=== PATIENT | male | born 1940 | race Caucasian/White ===

== ENCOUNTER 2019-07-23 03:26 | Inpatient (IN) | payer MEDICARE, SELFPAY ==
[2019-07-23] VITALS (20 sets, daily range): BP systolic 168–205; BP diastolic 72–91; PULSE 64–94; RESP 9–22; TEMP 36.5–37; O2SAT 93–99
--- NOTE | 2019-07-23 03:40 | ED.GENADUL_ITS ---
Discharge Plan Disposition Patient Disposition: [facility] INPATIENT Condition: Fair Discharge Details Chief Complaint: Chest/Rib Clinical Impression: RUQ abdominal pain, Cholelithiasis Primary Care Provider: Yumi Garrett ED Provider: Jg García Dickinson Meds and New Rx's Prescriptions: No Action glimepiride 4 mg Tablet 4 mg PO DAILY RF: 0 latanoprost 0.005 % Drops 1 drp OPHTHALMIC (EYE) DAILY RF: 0 meloxicam 15 mg Tablet 15 mg PO DAILY RF: 0 triamcinolone acetonide 0.1 % Cream 1 applic TOPICAL DAILY RF: 0 methocarbamol 750 mg Tablet 750 mg PO TID PRNRF: 0 timolol maleate [Timoptic] 0.25 % Drops 1 drp OPHTHALMIC (EYE) DAILY RF: 0 metformin 1,000 mg Tablet 1,000 mg PO BID RF: 0 lisinopril 10 mg Tablet 10 mg PO DAILY RF: 0 mometasone [Nasonex] 50 mcg/actuation [place],Non-Aerosol 1 spray INTRANASAL BID RF: 0 loratadine 10 mg Tablet 10 mg PO DAILY RF: 0 omeprazole 20 mg Tablet,Delayed Release (Dr/Ec) 20 mg PO DAILY RF: 0 Medical Decision Making Patient presenting with 8 hours of right-sided abdominal pain which is made worse with breathing. Very tender in the right upper quadrant with a Romero sign. Suspect gallbladder disease. Will place IV and start fluids. Morphine for pain control. Laboratory studies sent and CT scan ordered. Laboratory studies show a normal white count. He has mild anemia. Platelets are normal. Liver function is okay other than bilirubin being a little high at 1.4. Lipase is normal. CT scan shows a large distended gallbladder full of stones. No definite evidence of cholecystitis on CT. Patient still un comfortable and tender in the right upper quadrant. Case discussed with surgery, Dr. Álvarez. Patient will be admitted to surgical service for fluids and pain control. He will be kept n.p.o. Ultrasound is ordered. Lab Data Lab results reviewed: Yes I reviewed the patient's lab results. ECG Data Attestation: I personally reviewed and interpreted this ECG (s) as follows: Prior ECG tracings: not available for review Interpretation: Sinus rhythm at 68. Right bundle branch block. No acute ST changes. HPI General Mode of arrival: ambulatory . Date/Time Provider Initiated Documentation: 07/23/19 03:30 . Limitations to Documentation: no limitations . Information obtained by: patient and RN notes reviewed . HPI Narrative: Patient presents to ED with right sided chest and abdominal pain. Pain started around 8 PM this evening. He has tried to make himself vomit a few times. He has had a bowel movement. Pain is not getting any better. It is now mostly right upper quadrant radiating to the back. Hurts to take a breath. Denies chest pain at this point. Does not have nausea. No fever that he is aware of. Finally cannot take the pain any longer and came in for evaluation. Related Data Home Medications Medication Instructions Recorded Confirmed glimepiride 4 mg PO DAILY 07/23/19 07/23/19 latanoprost 1 drp OPHTHALMIC (EYE) DAILY 07/23/19 07/23/19 lisinopril 10 mg PO DAILY 07/23/19 07/23/19 loratadine 10 mg PO DAILY 07/23/19 07/23/19 meloxicam 15 mg PO DAILY 07/23/19 07/23/19 metformin 1,000 mg PO BID 07/23/19 07/23/19 methocarbamol 750 mg PO TID PRN 07/23/19 07/23/19 mometasone [Nasonex] 1 spray INTRANASAL BID 07/23/19 07/23/19 omeprazole 20 mg PO DAILY 07/23/19 07/23/19 timolol maleate [Timoptic] 1 drp OPHTHALMIC (EYE) DAILY 07/23/19 07/23/19 triamcinolone acetonide 1 applic TOPICAL DAILY 07/23/19 07/23/19 Allergies Allergy/AdvReac Type Severity Reaction Status Date / Time Penicillins Allergy Unverified 07/23/19 05:25 Review of Systems Narrative: 06/08 Review of Systems completed and is negative except as stated above in HPI (Systems reviewed: Const, Eyes, ENT, Resp, CV, GI, , MSK, Skin, Neuro) [facility] Medical History Diabetes mellitus (Chronic) GERD (gastroesophageal reflux disease) (Chronic) Glaucoma (Chronic) Hemochromatosis (Chronic) Surgical History Previous back surgery (Acute) Social History Smoking/Tobacco Use Status: Never Drug use: Never Do you feel safe at home: Yes Do you feel safe in your relationship?: Yes Exam Narrative Exam Narrative: Vitals: Afebrile. Elevated blood pressure otherwise normal vitals and normal room air pulse ox. Const: WDWN elderly male who appears uncomfortable. HEENT: NC/AT. Normal facial exam. Eyes: Normal conjunctiva and sclera. Neck: Supple. Trachea midline. Lungs: Normal respiratory effort. Lungs are clear. Cor: RRR without murmur/gallop. Good radial pulses. GI: Soft and non-distended. Tender in the RUQ with guarding and Romero's sign. Back: No CVAT. Neuro: A+O x 3. CN grossly in tact. Good strength and no focal deficit. Ext: No C/C/E. Skin: Warm and dry without rash.
[2019-07-23 04:03] LABS: Abs Immature Grans 0.01 k/cumm (0.0-0.09); Absolute Basophil Count 0.02 k/cumm (0.0-0.2); Absolute Eosinophil Count 0.03 k/cumm (0.0-0.7); Absolute Lymphocyte Count 0.57 k/cumm (1.2-3.4); Absolute Monocyte Count 0.27 k/cumm (0.11-0.7); Basophils % 0.3; Eosinophils % 0.4; HCT 39.8 % (40.0-50.0); Immature Grans % 0.1; Lymphocytes % 8.5; Mean Corp. HGB Concentration 32.7 g/dL (32.0-36.0); Mean Corpuscular Hemoglobin 28.2 pg (27.0-33.0); Mean Corpuscular Volume 86.3 fL (80-95); Mean Platelet Volume 9.9 fL (8.0-11.0); Neutrophils % 86.7; Platelet Count 212 x1000/uL (130-400); RBC 4.61 m/cumm (4.50-6.00); RBC Distribution Width 21.1 % (11.8-14.1)
[2019-07-23 04:06] LABS: Bilirubin Negative (Negative); Blood Trace-intact (Negative); Clarity Clear (Clear); Glucose 100 mg/dL (Negative); Ketones 15 mg/dL (Negative); Leukocyte Esterase Negative (Negative); Nitrite Negative (Negative)
[2019-07-23 04:12] LABS: Bacteria Rare HPF (Negative); C & S Indicated? No; Casts Negative LPF (Negative); Crystals Negative HPF (Negative); Epithelial Cells Rare HPF (Negative); Mucus Trace (Negative); WBC 0-2 HPF (0-5)
[2019-07-23] MEDS: Lactated Ringers 1,000 ML 125 ML IV ×3 (04:15→21:32)
[2019-07-23 04:16] LABS: ALT 18 U/L (16-63); AST 15 U/L (15-37); Albumin 4.2 g/dL (3.4-5.0); Alkaline Phosphatase 69 U/L (46-116); Anion Gap 9.3 mmol/L (3-11); BUN 19 mg/dL (7-18); Bilirubin, Total 1.4 mg/dL (0.2-1.0); CO2 30.7 mmol/L (21.0-32.0); CREATININE 0.82 mg/dL (0.70-1.30); Calcium 9.1 mg/dL (8.5-10.1); Chloride 102 mmol/L (98-107); Glucose 204 mg/dL (74-106); Lipase 84 U/L (73-393); Potassium 3.6 mmol/L (3.5-5.1); Sodium 142 mmol/L (136-145); Total Protein 7.8 g/dL (6.4-8.2)
[2019-07-23] MEDS: MORPHine 10 MG/ML VIAL 4 MG IVP ×2 (04:16→04:33)
--- NOTE | 2019-07-23 04:27 | NUR.NOTE ---
Nursing Note: Patient states no improvement in pain. Dr García informed. Orders given
[2019-07-23] MEDS: Ondansetron 4 MG/2 ML VIAL IVP ×4 (04:41→18:33)
--- NOTE | 2019-07-23 04:43 | NUR.NOTE ---
Nursing Note: Patient reports pain is down to 2 or 3. Radiology called. Pt ready for ct
[2019-07-23] MEDS: Omnipaque 350 MG/ML 100 ML BTL IJ (05:00)
--- NOTE | 2019-07-23 05:05 | DI.CT_ITS ---
EXAM: CT ABDOMEN PELVIS W CLINICAL HISTORY: RUQ abdominal pain TECHNIQUE: CT examination of the abdomen and pelvis was performed with bolus infusion of 100 cc of O mnipaque 350. COMPARISON: US ABDOMEN from 07/23/2019 FINDINGS: Images obtained through the lung bases are unremarkable. Liver is unremarkable except for incidenta l tiny low-attenuation left lobe hepatic lesion consistent with a small cyst or hemangioma. There ar e numerous gallstones. No gross gallbladder wall thickening or pericholecystic fluid collection. No biliary dilatation. Pancreas is unremarkable in appearance as is the spleen. Adrenals and kidneys are unremarkable with a couple of incidental presumed bilateral renal cysts. Ad renals are unremarkable. No abdominal or pelvic adenopathy. No significant intra-abdominal fluid co llection. Small fat containing bilateral inguinal hernias noted. Appendix is normal. No evidence o f diverticulitis or bowel obstruction. IMPRESSION: Cholelithiasis. No other significant findings.
--- NOTE | 2019-07-23 05:12 | NUR.NOTE ---
Nursing Note:Return from CT. Patient still rates pain about a 3 IV fluids infusing.
--- NOTE | 2019-07-23 05:13 | DI.VRAD_ITS ---
PROCEDURE INFORMATION: Exam: CT Abdomen And Pelvis With Contrast Exam date and time: 07/23/2019 3:54 AM Age: 78 years old Clinical history: Abdominal pain; Localized; Right upper quadrant (ruq) TECHNIQUE: Imaging protocol: Computed tomography of the abdomen and pelvis with intravenous contrast. Radiation optimization: All CT scans at this facility use at least one of these dose optimization techniques: automated exposure control; mA and/or kV adjustment per patient size (includes targeted exams where dose is matched to clinical indication); or iterative reconstruction. Contrast material: [id number]; Contrast volume: 100 ml; Contrast route: IV 20G RAC; COMPARISON: No relevant prior studies available. FINDINGS: Liver: No suspicious lesions. Gallbladder and bile ducts: Many stones in the gallbladder. Gallbladder distended the time of imaging but no inflammatory change. Pancreas: Unremarkable. No ductal dilation. Spleen: No suspicious lesions. Adrenals: No suspicious nodule. Kidneys and ureters: No hydro. No suspicious lesions. Stomach and bowel: Many colonic diverticuli. Appendix: No evidence of appendicitis. Intraperitoneal space: No free air. No significant fluid collection. Vasculature: Unremarkable. No acute findings Lymph nodes: Unremarkable. Bladder: Unremarkable as visualized. Reproductive: Unremarkable as visualized. Bones/joints: Unremarkable. No acute fracture. Soft tissues: Unremarkable. IMPRESSION: Cholelithiasis. Dictated and Authenticated by: Osman Ritter MD. Ordering:MANUEL Gregorio MD
[2019-07-23] MEDS: MORPHine 2 MG/ML SYR 4 MG IVP ×6 (05:33→22:59)
--- NOTE | 2019-07-23 07:18 | NUR.NOTE ---
Patient was admitted to the Med-Surg unit this morning with history of vomiting, and abdominal pain at home last night. He is conscious alert and rational. He ambulates without any difficulties. He vomited x 1 since admission. He was oriented to the room and made comfortable in bed, present with him.
--- NOTE | 2019-07-23 07:51 | DI.US_ITS ---
EXAM: US ABDOMEN CLINICAL HISTORY: RUQ pain; cholelithiasis TECHNIQUE: Ultrasound performed using standard protocol. COMPARISON: No exams were available for comparison FINDINGS: There are numerous gallstones. No gallbladder wall thickening or pericholecystic fluid collection se en. No biliary dilatation seen. Pancreas not ideally visualized but no gross abnormality. The live r is unremarkable in appearance. Kidneys and spleen grossly unremarkable. IMPRESSION: Cholelithiasis, no other significant finding.
--- NOTE | 2019-07-23 08:35 | DI.VRAD_ITS ---
PROCEDURE INFORMATION: Exam: US Abdomen Complete Exam date and time: 07/23/2019 7:54 AM Age: 78 years old Clinical history: Other: Ruq pain, cholelithiasis TECHNIQUE: Imaging protocol: Real-time ultrasound of the abdomen with image documentation. COMPARISON: CT ABDOMEN PELVIS W 07/23/2019 4:49 AM FINDINGS: Liver: liver is mildly echogenic likely related to fatty infiltration. Liver 19 cm Flow within the portal vein is towards the liver- hepatopedal Gallbladder: Large number of small gallstones. Possible gallbladder polyp. 6 mm. Common bile duct: Common bile duct normal. Common bile duct 5-6 mm. Pancreas: Visualized portions of the pancreas normal. Right kidney: Right kidney is normal. Right kidney 11 cm Left kidney: Left kidney 10.5 cm Spleen: Spleen 11 cm Aorta: The visualized portions of the aorta is non-aneurysmal and the visualized portions of the inferior vena cava is unremarkable. Visualized portions of the aorta non-aneurysmal . Likely atheromatous disease Inferior vena cava: Normal. IMPRESSION: 1. Liver is mildly echogenic likely related to fatty infiltration. 2. Large number of small gallstones. Question mild edema. Consider hepatobiliary imaging. Dictated and Authenticated by: Derrick Ye MD. Ordering:MANUEL Gregorio MD
--- NOTE | 2019-07-23 08:49 | NUR.NOTE ---
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
--- NOTE | 2019-07-23 11:54 | HPE_ITS ---
Date of service: 07/23/19 Time of Service: 11:59 Assessment and Plan Assessment and plan (1) Hemochromatosis: Status: Chronic (2) GERD (gastroesophageal reflux disease): Status: Chronic (3) Diabetes mellitus: Status: Chronic (4) Glaucoma: Status: Chronic (5) Gallstones without obstruction of gallbladder: Status: Acute Assessment and plan: Plan: The patient will be scheduled for laparoscopic cholecystectomy. The alternatives to surgery, risks, complications, and the possible need to convert to open cholecystectomy were discussed. Also bleeding, infection, pneumonia, blood clots, complications of anesthesia, damage to bowel, bladder, blood vessels, or bile ducts, liver, need for blood transfusions. Also: chronic pain, chronic diarrhea, reoccurrence of signs and symptoms, port site hernias, adhesions. All questions were answered and the patient elected to proceed with surgery. plan sx in am History of Present Illness History of Present Illness Chief Complaint: gallstones Consults Consult date: 07/23/19 Narrative: started last pm after eating ice cream. pain in RUQ radiating into back and shoulder. assoc N/V. still c/o pain and nausea though not as bad. no fever/chlls. no cp or sob. does not get cp or sob if climbs a flight of stairs. no blood thinners. no prior MN/CVA. htn/dm/glaucoma. no prior abdom sx. no hernias. no problems w/ anesthesia Review of Systems All systems reviewed & are unremarkable except as noted in HPI and below PFSH Medical History Diabetes mellitus (Chronic) GERD (gastroesophageal reflux disease) (Chronic) Glaucoma (Chronic) Hemochromatosis (Chronic) Surgical History Previous back surgery (Acute) Social History Smoking/Tobacco Use Status: Never Drug use: Never Do you feel safe at home: Yes Do you feel safe in your relationship?: Yes Meds Home Medications and Allergies Home Medications Medication Instructions Recorded Confirmed Type glimepiride 4 mg PO DAILY 07/23/19 07/23/19 History latanoprost 1 drp OPHTHALMIC (EYE) DAILY 07/23/19 07/23/19 History lisinopril 10 mg PO DAILY 07/23/19 07/23/19 History loratadine 10 mg PO DAILY 07/23/19 07/23/19 History meloxicam 15 mg PO DAILY 07/23/19 07/23/19 History metformin 1,000 mg PO BID 07/23/19 07/23/19 History methocarbamol 750 mg PO TID PRN 07/23/19 07/23/19 History mometasone [Nasonex] 1 spray INTRANASAL BID 07/23/19 07/23/19 History omeprazole 20 mg PO DAILY 07/23/19 07/23/19 History timolol maleate [Timoptic] 1 drp OPHTHALMIC (EYE) DAILY 07/23/19 07/23/19 History triamcinolone acetonide 1 applic TOPICAL DAILY 07/23/19 07/23/19 History Allergies Allergy/AdvReac Type Severity Reaction Status Date / Time Penicillins Allergy Unverified 07/23/19 05:25 Exam Const General: cooperative, healthy appearing, comfortable, no acute distress, well developed and well groomed Nutritional Appearance: average body habitus and well nourished Orientation: alert, awake and oriented x3 HENMT Head: normal to inspection, normocephalic and atraumatic Ears: hearing grossly normal bilaterally and external ears normal General nose exam: external nose normal Face and sinus: normal facial exam and sinuses nontender Mouth: oral mucosae normal, lip normal, tongue normal and moist mucous membranes Teeth and gingiva: dentition normal Eyes General: appearance normal, both eyes and all related structures Conjunctivae: conjunctivae normal Sclera: sclerae normal Pupils: PERRL Neck Neck: normal visual inspection and full ROM Chest Chest: normal inspection of the chest Resp Effort & Inspection: normal respiratory effort, able to speak in complete sentences, no cough, no nasal flaring, not tachypneic and no use of accessory muscles Auscultation: clear to auscultation bilaterally, no rales, no rhonchi and no wheezes Cardio Jugular venous pressure: no JVD Rate: regular rate Rhythm: regular rhythm GI Inspection: normal to inspection, no edema and distended Palpation: soft, no masses, tender and No ascites Auscultation: normal bowel sounds Other: no hernias. no peritonitis. ruq pain radiates into back. Skin General skin exam: no rashes or lesions noted Trauma: no lacerations or abrasions Other: changes assoc of OA and senile skin changes. no visible skin cancers Neuro General: alert, oriented x3, oriented, gait normal, moves all extremities, no focal motor deficits and CN's II-XI intact bilaterally Cognition: normal cognition Speech: speech normal Gait: normal gait Motor: muscle tone normal throughout Extrem General: normal to inspection, full ROM and no clubbing, cyanosis or edema Psych Appearance: grossly normal and well kempt Mental Status: mental status grossly normal Speech and Movement: speech and movement normal Affect: normal affect Results Labs Result diagrams: 07/23/19 03:45 07/23/19 03:45 Labs: Laboratory Results - last 24 hr 07/23/19 07/23/19 07/23/19 03:45 03:45 04:00 WBC 6.70 RBC 4.61 Hgb 13.0 L Hct 39.8 L MCV 86.3 MCH 28.2 MCHC 32.7 RDW 21.1 H Plt Count 212 MPV 9.9 Immature Gran % 0.1 Neutrophils % 86.7 Lymphocytes % 8.5 Monocytes % 4.0 Eosinophils % 0.4 Basophils % 0.3 Absolute Neutrophils 5.80 Absolute Lymphocytes 0.57 L Absolute Monocytes 0.27 Absolute Eosinophils 0.03 Absolute Basophils 0.02 Sodium 142 Potassium 3.6 Chloride 102 Carbon Dioxide 30.7 Anion Gap 9.3 BUN 19 H Creatinine 0.82 Estimated GFR/1.73 m2 >= 60.00 Glucose 204 H Calcium 9.1 Total Bilirubin 1.4 H AST 15 ALT 18 Alkaline Phosphatase 69 Total Protein 7.8 Albumin 4.2 Lipase 84 Urine Color Yellow Urine Clarity Clear Urine pH 7.0 Ur Specific [place] 1.020 Urine Protein 30 H Urine Ketones 15 H Urine Blood Trace-intact H Urine Nitrite Negative Urine Bilirubin Negative Urine Urobilinogen 1.0 H Ur Leukocyte Esterase Negative Urine RBC 3-5 H Urine WBC 0-2 Ur Epithelial Cells Rare Urine Crystals Negative Urine Bacteria Rare Urine Casts Negative Urine Mucus Trace Ur Culture Indicated? No Urine Glucose 100 Last Vital Signs Temp 36.6 C 07/23/19 07:58 Pulse 83 07/23/19 07:58 Resp 18 07/23/19 07:58 BP 182/76 H 07/23/19 07:58 Pulse Ox 97 07/23/19 07:58
--- NOTE | 2019-07-23 12:06 | PDOC.CMIN ---
- If Service Date Differs Date of service: 07/23/19 Time of Service: 12:07 Care Management Initial Assess REASON FOR HOSPITALIZATION:: Right upper quadrant pain, cholelithiasis PAST MEDICAL HISTORY/PAST SURGICAL HISTORY:: Medical History. Diabetes mellitus (Chronic). GERD (gastroesophageal reflux disease) (Chronic). Glaucoma (Chronic). Hemochromatosis (Chronic). Surgical History. Previous back surgery (Acute) PREVIOUS FUNCTIONAL STATUS/SOCIAL/FAMILY SUPPORTS:: Jemal and his Modesta live in [facility]. They have a daughter who lives in [place], and a son who lives nearby. They have seven grandchildren and two great grand children. 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 Jemal is independent at baseline. CURRENT FUNCTIONAL STATUS:: Jemal was sitting up in his bed when CM met with him, his by his side. He was wincing in pain and reported that he could no longer handle the pain at home, so he came to the ED, where he was admitted for observation. The surgeon will meet with him today to evaluate his needs. He reports that he will be happy when he is out of pain. CM will continue to follow. ADVANCE DIRECTIVES:: None on file. CM provided blank copies of the [place] AD, at the request of Jemal and Modesta. Has patient been provided with information about the portal?: Yes Did the patient sign up for the portal?: No (Not interested) CODE STATUS:: Full Code INSURANCE COVERAGE / FINANCIAL ISSUES:: [facility]/[place] CURRENT HOME/COMMUNITY SERVICES/EQUIPMENT:: No current equipment or services. PRIMARY CARE PHYSICIAN:: Yumi Garrett POTENTIAL DISCHARGE NEEDS:: Evaluation for further needs, follow up appointments PATIENT/FAMILY EDUCATION NEEDS:: Review discharge instructions, discussion of self care needs including Ask Me Three ANTICIPATED BARRIERS TO DISCHARGE:: None identified TRANSPORTATION:: Jemal's , Modesta will transport him via private vehicle PLAN:: Anticipate Jemal will return home with no additional services when medically cleared. He will follow up with his PCP as recommended. His , Modesta will drive him home via private vehicle when ready. CM will continue to follow and support discharge planning considerations.
[2019-07-23] MEDS: Pantoprazole 40 MG VIAL IVP (13:14)
[2019-07-23] MEDS: Droperidol 5 MG/2 ML VIAL 1.25 MG IVP (13:14)
[2019-07-23] MEDS: Lisinopril 10 MG TAB PO (13:15)
--- NOTE | 2019-07-23 13:24 | PHARADMIT ---
Addendum entered by Alaina Hernandez 07/28/19 11:59: Pharmacy Note Subjective Hospitalist consult for chest pain, resolved with GI cocktail, NTG and ASA 324mg Laproscopic Choly was 07/24/19 Objective VS 191/90, Afebrile, pain 2/10, Troponin negative x 2 Mag 2.8, K+ 3.9, LFT's down, Bilirubin elevated Assessment Levaquin IV day#4 today-s/p gangrenous gall bladder IV Acetaminophen scheduled Q8h continues Lovenox was stopped yesterday Plan Echo today, going to [facility] for urgent ERCP today due to bile leak followup with results, Cardiac status, restart Lovenox?, Anbx coverage Addendum entered by Alaina Hernandez 07/26/19 13:04: Pharmacy Note Subjective Objective Afebrile, Tmax 37.8 last evening, pain zero, Mag 1.7, H/H down 9.4/29.3 Assessment Levaquin day#2 MD ordered Iron sucrose 200mg today x1 No Mag replacement ordered at this time Morphine & Dilaudid IVP dc'd, Senna starting, Trazodone at bedtime Plan Addendum entered by Alaina Hernandez 07/25/19 12:41: Pharmacy Note Subjective post-op day#1 for lap/choly, patient ambulating in room, advanced to regular diet today Objective BP 175/91, Afebrile, pain zero, BG 168,K+ 4.1, Mag 1.5, H/H down 10.0/31.0, LFT's up (AST/ALT) Assessment Lovenox started today Levaquin started today dose#1 Mag 2gram IV x1 Morphine and Dilaudid IVP for pain Plan watch for restart of oral meds Addendum entered by Joceline Arnold 07/24/19 15:52: Pharmacy Note Subjective pt had surgery today Objective BP-131/51 other VS okay [id number] Assessment levofloxacin started today first dose given in OR acetaminophen scheduled Plan watch for restart of home meds, transition from IV to PO meds Original Note: Admission Pharmacy Clinical Review right upper quadrant pain, cholelithiasis Code Status Full Code Current Weight 95.708 kg Renally Cleared and Narrow Therapeutic Index Meds Crcl ~70 mL/min current meds okay QTc Value / Action Taken QTc 451 BP Control, Fever BP 178/91 afebrile Electrolytes reviewed within normal limits DVT Prophylaxis none-surgery tomorrow Opiate Usage / Scheduled Bowel Regimen Ordered prn/no Plt/SCr for Heparin / Enoxaparin plt 212 SCr 0.82 INR for Warfarin n/a H/H stable, WBC/Bands h/h 13.0/39.8 WBC 6.70 Antibiotic appropriateness clindamycin-preop dose Cultures and Sensitivities none Surgical ABX d/c within 24 hr surgery tomorrow, reassess then DM control / Insulin Dosing BG 204 none, has po meds on home med list Heart Failure (Check EF%) (JUDY's, B-Block, Diuretics) lisinopril IV to PO Switch n/a Home Meds Reviewed yes Home Meds Not Ordered glimepiride, loratadine, meloxicam, metformin, methocarbamol, mometasone, omeprazole (has pantoprazole ordered), triamcinolone Comments plan is for surgery tomorrow, watch for the restart of some home meds, also watch for possible sliding scale insulin orders (coordinator made aware currently none and was going to check in with surgeon)
[2019-07-23] MEDS: HYDROmorphone 2 MG/ML VIAL 0.5 MG IVP (15:17)
[2019-07-23] MEDS: Normal Saline Flush 10 ML SYR IVP ×2 (20:31→22:59)
[2019-07-23] MEDS: Latanoprost 0.005% 2.5 ML BTL OP (21:32)
[2019-07-24] VITALS (24 sets, daily range): BP systolic 104–166; BP diastolic 29–82; PULSE 64–92; RESP 13–21; TEMP 36–37.4; O2SAT 90–100
[2019-07-24] MEDS: Ondansetron 4 MG/2 ML VIAL IVP ×2 (00:41→06:32)
[2019-07-24] MEDS: Normal Saline Flush 10 ML SYR IVP ×4 (00:42→19:49)
[2019-07-24] MEDS: Insulin Aspart 300 UNITS/3 ML PEN SC ×4 (00:42→21:39)
[2019-07-24] MEDS: MORPHine 2 MG/ML SYR 4 MG IVP ×2 (02:04→06:32)
[2019-07-24] MEDS: Lactated Ringers 1,000 ML 125 ML IV (05:28)
[2019-07-24 07:18] LABS: ALT 25 U/L (16-63); AST 18 U/L (15-37); Albumin 3.5 g/dL (3.4-5.0); Alkaline Phosphatase 60 U/L (46-116); Anion Gap 7.9 mmol/L (3-11); BUN 8 mg/dL (7-18); Bilirubin, Total 3.1 mg/dL (0.2-1.0); CO2 31.1 mmol/L (21.0-32.0); CREATININE 0.76 mg/dL (0.70-1.30); Calcium 8.6 mg/dL (8.5-10.1); Chloride 99 mmol/L (98-107); Glucose 155 mg/dL (74-106); Potassium 3.5 mmol/L (3.5-5.1); Sodium 138 mmol/L (136-145); Total Protein 6.9 g/dL (6.4-8.2)
--- NOTE | 2019-07-24 09:51 | NUR.NOTE ---
pt left unit for surgery Nursing Note:
--- NOTE | 2019-07-24 09:53 | CMPROGNOTE_ITS ---
- If Service Date Differs Date of service: 07/24/19 Time of Service: 09:53 Care Management Progress Note S/O: CM is unable to meet with Jemal today as he is struggling to remain awake. He had a laparoscopic cholecryptectomy surgery earlier in the day and is still under the effects of anesthesia. CM will continue to follow. A: Jemal is a 78 year old male admitted to [facility] on 07/23/2019 for right upper quadrant pain and cholelithiasis. P: Jemal will return home when medically cleared by provider. Anticipate appointment with casing crew at [facility] for ERCP and stent post op. His , Modesta will transport him home when ready. CM continues to follow.
[2019-07-24] MEDS: Lactated Ringers 1,000 ML 30 ML IV ×3 (10:11→13:19)
--- NOTE | 2019-07-24 10:13 | W.PM.PROGNOT ---
Date of Service Date of service: 07/24/19 Time of Service: 10:13 Assessment and Plan Assessment and plan (1) Gallstones without obstruction of gallbladder: Status: Acute Assessment and plan: Plan: The patient will be scheduled for laparoscopic cholecystectomy. The alternatives to surgery, risks, complications, and the possible need to convert to open cholecystectomy were discussed. Also bleeding, infection, pneumonia, blood clots, complications of anesthesia, damage to bowel, bladder, blood vessels, or bile ducts, liver, need for blood transfusions. Also: chronic pain, chronic diarrhea, reoccurrence of signs and symptoms, port site hernias, adhesions. All questions were answered and the patient elected to proceed with surgery. Also d/w pt dietary restrictions and warning signs of when to go to ER. Subjective Subjective Interval history since last seen: Pt is doing well. no headaches. No CP or SOB. no productive cough. no dysuria. no leg pain or swelling. Still having some mild right upper quadrant pain. No fevers or chills. No chest pain or shortness of breath. All questions answered. Stable for procedure today. Exam Const General: cooperative, healthy appearing, comfortable, no acute distress, well developed and well groomed Nutritional Appearance: average body habitus and well nourished Orientation: alert, awake and oriented x3 HENMT Head: normal to inspection, normocephalic and atraumatic Ears: hearing grossly normal bilaterally and external ears normal General nose exam: external nose normal Face and sinus: normal facial exam and sinuses nontender Mouth: oral mucosae normal, lip normal, tongue normal and moist mucous membranes Teeth and gingiva: dentition normal Eyes General: appearance normal, both eyes and all related structures Conjunctivae: conjunctivae normal Sclera: sclerae normal Pupils: PERRL Neck Neck: normal visual inspection and full ROM Chest Chest: normal inspection of the chest Resp Effort & Inspection: normal respiratory effort, able to speak in complete sentences, no cough, no nasal flaring, not tachypneic and no use of accessory muscles Auscultation: clear to auscultation bilaterally, no rales, no rhonchi and no wheezes Cardio Jugular venous pressure: no JVD Rate: regular rate Rhythm: regular rhythm GI Inspection: normal to inspection, no edema and non-distended Palpation: soft, no masses, nontender and No ascites Auscultation: normal bowel sounds Skin General skin exam: no rashes or lesions noted Trauma: no lacerations or abrasions Neuro General: alert, oriented x3, oriented, gait normal, moves all extremities, no focal motor deficits and CN's II-XI intact bilaterally Cognition: normal cognition Speech: speech normal Gait: normal gait Motor: muscle tone normal throughout Extrem General: normal to inspection, full ROM and no clubbing, cyanosis or edema Psych Appearance: grossly normal and well kempt Mental Status: mental status grossly normal Speech and Movement: speech and movement normal Affect: normal affect Objective Objective Clinical Data: Abnormal lab results 07/24/19 Range/Units 06:35 Glucose 155 H (74-106) mg/dL Total Bilirubin 3.1 H (0.2-1.0) mg/dL Vital Signs Temperature 37.4 C 07/24/19 07:16 Temperature Source Tympanic 07/24/19 07:16 Pulse 92 H 07/24/19 07:16 Pulse Rhythm Regular 07/24/19 07:20 Pulse 67 07/23/19 04:31 Respiratory Rate 16 07/24/19 07:16 Respiratory Effort Non-Labored 07/24/19 07:20 Respiratory Depth Normal 07/24/19 07:20 Respiratory Pattern Normal 07/24/19 07:20 Blood Pressure 162/72 H 07/24/19 07:16 Blood Pressure Mean 101 07/23/19 05:46 Blood Pressure Position Sitting 07/23/19 03:36 Pulse Oximetry 95 07/24/19 07:16 Oxygen Delivery Method Room Air 07/24/19 07:16 Oxygen Flow Rate 0 07/24/19 07:16 Pain Level 4 07/24/19 07:16 Intake & Output 07/23/19 07/23/19 07/24/19 11:59 23:59 11:59 Intake Total / 7398.191 5140.667 / 1021.667 Output Total 1550 / 1550 925 / 925 Balance 411.667 / 411.667 96.667 / 96.667 Weight 95.708 kg Intake: IV 1021.667 / 1021.667 Output: Urine 1550 / 1550 925 / 925 Other: Urine Color Yellow Yellow Yellow Urine Appearance Clear Clear Clear Urine Odor None None Voiding Methods Toilet Urinal Urinal Laboratory Results WBC 6.70 k/cumm (4.4-10.8) 07/23/19 03:45 RBC 4.61 m/cumm (4.50-6.00) 07/23/19 03:45 Hgb 13.0 g/dL (13.5-17.5) L 07/23/19 03:45 Hct 39.8 % (40.0-50.0) L 07/23/19 03:45 MCV 86.3 fL (80-95) 07/23/19 03:45 MCH 28.2 pg (27.0-33.0) 07/23/19 03:45 MCHC 32.7 g/dL (32.0-36.0) 07/23/19 03:45 RDW 21.1 % (11.8-14.1) H 07/23/19 03:45 Plt Count 212 x1000/uL (130-400) 07/23/19 03:45 MPV 9.9 fL (8.0-11.0) 07/23/19 03:45 Immature Gran % 0.1 07/23/19 03:45 Neutrophils % 86.7 07/23/19 03:45 Lymphocytes % 8.5 07/23/19 03:45 Monocytes % 4.0 07/23/19 03:45 Eosinophils % 0.4 07/23/19 03:45 Basophils % 0.3 07/23/19 03:45 Absolute Neutrophils 5.80 k/cumm (1.2-6.7) 07/23/19 03:45 Absolute Lymphocytes 0.57 k/cumm (1.2-3.4) L 07/23/19 03:45 Absolute Monocytes 0.27 k/cumm (0.11-0.7) 07/23/19 03:45 Absolute Eosinophils 0.03 k/cumm (0.0-0.7) 07/23/19 03:45 Absolute Basophils 0.02 k/cumm (0.0-0.2) 07/23/19 03:45 Sodium 138 mmol/L (136-145) 07/24/19 06:35 Potassium 3.5 mmol/L (3.5-5.1) 07/24/19 06:35 Chloride 99 mmol/L (98-107) 07/24/19 06:35 Carbon Dioxide 31.1 mmol/L (21.0-32.0) 07/24/19 06:35 Anion Gap 7.9 mmol/L (3-11) 07/24/19 06:35 BUN 8 mg/dL (7-18) D 07/24/19 06:35 Creatinine 0.76 mg/dL (0.70-1.30) 07/24/19 06:35 Estimated GFR/1.73 m2 >= 60.00 (mL/min/1.73m2) 07/24/19 06:35 Glucose 155 mg/dL (74-106) H 07/24/19 06:35 Calcium 8.6 mg/dL (8.5-10.1) 07/24/19 06:35 Total Bilirubin 3.1 mg/dL (0.2-1.0) H 07/24/19 06:35 AST 18 U/L (15-37) 07/24/19 06:35 ALT 25 U/L (16-63) 07/24/19 06:35 Alkaline Phosphatase 60 U/L (46-116) 07/24/19 06:35 Total Protein 6.9 g/dL (6.4-8.2) 07/24/19 06:35 Albumin 3.5 g/dL (3.4-5.0) 07/24/19 06:35 Lipase 84 U/L (73-393) 07/23/19 03:45 Urine Color Yellow (Yellow) 07/23/19 04:00 Urine Clarity Clear (Clear) 07/23/19 04:00 Urine pH 7.0 (5-8) 07/23/19 04:00 Ur Specific [place] 1.020 (1.005-1.025) 07/23/19 04:00 Urine Protein 30 mg/dL (Negative) H 07/23/19 04:00 Urine Ketones 15 mg/dL (Negative) H 07/23/19 04:00 Urine Blood Trace-intact (Negative) H 07/23/19 04:00 Urine Nitrite Negative (Negative) 07/23/19 04:00 Urine Bilirubin Negative (Negative) 07/23/19 04:00 Urine Urobilinogen 1.0 EU/dL (Up TO 0.2) H 07/23/19 04:00 Ur Leukocyte Esterase Negative (Negative) 07/23/19 04:00 Urine RBC 3-5 HPF (0-2) H 07/23/19 04:00 Urine WBC 0-2 HPF (0-5) 07/23/19 04:00 Ur Epithelial Cells Rare HPF (Negative) 07/23/19 04:00 Urine Crystals Negative HPF (Negative) 07/23/19 04:00 Urine Bacteria Rare HPF (Negative) 07/23/19 04:00 Urine Casts Negative LPF (Negative) 07/23/19 04:00 Urine Mucus Trace (Negative) 07/23/19 04:00 Ur Culture Indicated? No 07/23/19 04:00 Urine Glucose 100 mg/dL (Negative) 07/23/19 04:00
[2019-07-24] MEDS: Bupivacaine 0.25% Pres-Free 10 ML VIAL (10:35)
[2019-07-24] MEDS: CLINDAMYCIN 600 MG/50 ML BAG 100 MG IVPB (10:59)
[2019-07-24] MEDS: Bupivacaine 0.25% Pres-Free 30 ML VIAL (11:00)
[2019-07-24] MEDS: Cellulose,Oxidized 4X8 1 PACKET MC (12:39)
--- NOTE | 2019-07-24 13:00 | GB_PTH ---
PATIENT: Jemal Watkins LOC: [id number]#:[id number] AGE/SX: 78/M ROOM: 206 RE07/23/[address]: Andria Álvarez MD : [id number] BED: A DIS: 07/31/2019 SPEC #: [id number] RECD: 07/27/19 12:23 STATUS: ANKIT REQ #: [id number] OSIRIS: 07/24/19 13:[address]: Andria Álvarez DEPT: Surgical Specimen RECD BY: Cindy Ba ENTERED: 07/27/19 12:24 SP TYPE: GB OTHR DR: Yumi Garrett Tissues: 1 - GALLBLADDER Procedures: GROSS AND MICRO LEVEL 3 Comments: [id number]
--- NOTE | 2019-07-24 13:50 | ROE_ITS ---
Date of service: 07/24/19 Time of Service: 13:50 Operative Note Operative Note DATE OF PROCEDURE: 07/24/19 PRE-OP DIAGNOSIS: acute jody w/ stones POST-OP DIAGNOSIS: other (gangrenous) PROCEDURE: lap jody SURGEON: Jewels Loaiza CONCESSION SUPERVISOR: Jewels Rebolledo ANESTHESIA: GETA and regional ESTIMATED BLOOD LOSS: 500 PATHOLOGY: other Patient was transported to: floor Patient's condition: stable Implants: drain Procedure Description: INDICATIONS: the pt has acute cholecystitis, cholelithiasis and is here today for laparoscop ic cholecystectomy. Informed consent was obtained, explaining risks and benefits of the procedure including but not limited to bleeding, infection, pneumonia, blood clots, possible damage to bowel, bladder, blood vessels, bile ducts, possible open procedure, complications of general anesthesia and other unforetold complications. PROCEDURE: The patient agrees and is brought to the operative room suite and placed in supine position. Anesthesia was administered per the Department of Anesthesia. The patient did receive IV antibiotics. NG tube and Ruvalcaba catheter are placed. The patient was prepped and draped in the usual sterile fashion using DuraPrep scrub solution. Pause for the cause was done. 20 mL of 1% buffered lidocaine was used for local anesthetization. A stab incision was made in the umbilicus and the Verres inserted. Drop test was positive and insufflation was begun. When 15 mm of pressure was noted on the monitor, the Veress was removed and #5 port inserted. The camera was inserted through the port and shows no damage to underlying structures. A 10 mm port was then placed in the epigastric position under direct visualization following creation of local field blocks as well as two 5 mm ports in the right upper quadrant. Upon entering the abdomen, it was noted that he had free bile in the pelvis. The omentum was wrapped around the GB. This is teased down w/ blunt dissection. The GB was distended. I did attempt to aspirate the GB- but we got had minimal bile return. THe GB was completely filled w/ stones, making it difficult to manipulate the GB. The gb itself, shows obvious signs of gangrene and areas of perforation. The gallbladder fundus was grasped and retracted towards the right shoulder. Infundibulum was grasped and retracted laterally. The hepat-duodenal ligament is entered. The ligament is hardened/woody/inflammed. The C. duct adn artery are readily dissected out. Once the cystic duct and artery are dissected out, the most inferior portion of the gallbladder plate is removed from the liver and the critical view of safety was obtained after clearing away all fatty material. Endo Clips were placed across the duct and artery and these structures are divided. While dividing the remainder of the fatty attachments- I did encounter a bleeder- this was controlled by placing Surgicel. The remainder of the gallbladder was excised from the liver bed. Again, the liver bed is very fraible and bleeds readily. Floseel is placed in the liver bed. The gallbladder is definately gangrenous. The gallbladder was placed in a bag and brought out. A 3 incision had to be made to rmeove the GB. Examination of the gallbladder shows indeed the cystic duct and artery to have been divided. The remainder of the abdomen was copiously irrigated with a liter of saline. All saline is removed. There is no bleeding or bile leakage from the liver bed or the clips sites. The fascia under the 10mm port site, and the incision made to remove the gb, are closed with 2-0 vicryl. 15 mm flat drain is left in the gallbladder fossa and brought out through the incision and sewn in separately. The skin under the small incisions is closed with 4-0 Monocryl in subcuticular fashion and skin glue applied. A 3 inch incision is closed with nellie. All ports and instruments are removed. Pneumoperitoneum is evacuated and the port sites are monitored to make sure there is no bleeding at the time of desufflation. The patient tolerated the procedure well without complications, transferred to the recovery room in stable condition. JEWELS LOAIZA DO pt has a high chance of having a postoP cystic duct stump leak and may require ERCP and stent postOP
[2019-07-24] MEDS: Lactated Ringers 1,000 ML 150 ML IV ×2 (15:39→20:57)
--- NOTE | 2019-07-24 16:51 | NUR.NOTE ---
@ 15:20 pt returned to the floor from surgery. pt had a Laparoscopic cholecystectomy done. pt has 4 trocar sites, dressings CDI, larger site to the RT upper quadrant has a sascha drain in place. minimal drainage noted to same. pt also has a waterman draining dark chiki urine.at 16:00 he was placed on 1L of o2 until he is fully awake as his sats ranges between 89-91% when he falls asleep.
--- NOTE | 2019-07-24 19:36 | PGE_ITS ---
Date of Service Date of service: 07/24/19 Time of Service: 19:36 Assessment and Plan Assessment and plan (1) Acute gangrenous cholecystitis: Status: Acute Assessment and plan: [facility] General Surgery Post-Op Progress Note s/p lap jody Plan: Encourage ambulation and pulmonary toilet Continue local wound care Pain control measures are effective diet cl liq Interval History: Doing well. Continues to improve. Pain is well-controlled. No fevers. drain has bile in place- unclear if this is from procedure or represents bile leak. There was no leak from liver bed or clip sites at the time of closure. There was bile in ithe abdom at the time of opening. It may just be in leftover irrigation fluid. Pt denies any abdominal pain. dressing sites are C/D/I. The pt's diet is sips/chips The pt is having no nausea or vomiting. The pt has no chest pain, SOB, productive cough. There has no leg pain or swelling. Pt has been doing IS. All labs, radiological & adjuvant studies, cultures and available path reports have been reviewed. Medications and treatment regimen have been adjusted appropriately. Medications: -see eMAR ROS REVIEW OF SYSTEMS GENERAL: No fevers or chills. Denies fatigue, recent weight loss. HEENT: No sinus drainage. No changes with vision or hearing. No difficulty swallowing. CARDIOVASCULAR: Denies chest pain, palpitations and dyspnea on exertion. PULMONARY: No shortness of breath or cough. No increase in sputum production. GI: Denies melena, bright red blood in stools. No hematemesis. No constipation or diarrhea. : No dysuria or hematuria. SKIN: No recent rashes or ulcers. HEMATOLOGY: No history of easy bruising or bleeding. ENDOCRINE: No history of diabetes or thyroid problems. NEUROLOGY: No history of seizures or headaches. No motor or sensory changes. Musculoskeletal: no calf pain or swelling. No le redness Physical Exam: All vitals have been reviewed A & O x3 in NAD SHEENT examination revealed Mucous membranes are moist. No jaundice. Dentition is intact No JVD. No bruising. No corneal abrasions. Examination of the chest revealed Normal excursion. CTA b/l. No R/R/W. Examination of the heart revealed NSR. No new murmurs. No s/s of fluid overload. Examination of the abdomen revealed bile in drain- will monitor. incision C/D/I. The neuromuscular examination was intact. No focal deficits. Moving ext. Indepe ndently. No calf pain or tenderness. Distal peripheral pulses are intact. No skin breakdown Pt were able to express questions and concerns and were apprised of there condition and expected discharge. May need to go for ERCP in stent . (2) Gallstones without obstruction of gallbladder: Status: Acute Subjective Subjective Interval history since last seen: no headaches. No CP or SOB. no productive cough. no leg pain or swelling. Objective Objective Clinical Data: Abnormal lab results 07/24/19 Range/Units 06:35 Glucose 155 H (74-106) mg/dL Total Bilirubin 3.1 H (0.2-1.0) mg/dL Vital Signs Temperature 36.5 C 07/24/19 19:34 Temperature Source Tympanic 07/24/19 19:34 Pulse 85 07/24/19 19:34 Pulse Rhythm Regular 07/24/19 15:30 Pulse 67 07/23/19 04:31 Respiratory Rate 18 07/24/19 19:34 Respiratory Effort Non-Labored 07/24/19 15:30 Respiratory Depth Normal 07/24/19 15:30 Respiratory Pattern Normal 07/24/19 15:30 Blood Pressure 150/62 H 07/24/19 19:34 Blood Pressure Mean 101 07/23/19 05:46 Blood Pressure Position Sitting 07/23/19 03:36 Pulse Oximetry 95 07/24/19 19:34 Respiratory End-tidal CO2 20 07/24/19 14:47 Oxygen Delivery Method Room Air 07/24/19 19:34 Oxygen Flow Rate 0 07/24/19 19:34 Pain Level 0 07/24/19 19:34 Comment 07/24/19 16:10 Intake & Output 07/23/19 07/24/19 07/24/19 23:59 11:59 23:59 Intake Total 1960.667 / 4328.121 2002.667 / 3571.667 2500 / 3571.667 Output Total 0 / 1550 / 1974 Balance 411.667 / 411.667 146.667 / 6866.970 5468 / 1596.667 Intake: IV 1960. / 3877.277 1894.667 / 3571.667 2500 / 3571.667 Oral 0 / 0 Output: Drainage 175 / 175 Mid Anterior Medial Abdomen 175 / 175 Urine 1550 / 1550 925 / 1300 375 / 1300 Estimated Blood Loss 500 / 500 Other: Urine Color Yellow Pale Dark Nadeen Urine Appearance Clear Clear Clear Urine Odor None None Emesis Description None Voiding Methods Urinal Urinal Laboratory Results WBC 6.70 k/cumm (4.4-10.8) 07/23/19 03:45 RBC 4.61 m/cumm (4.50-6.00) 07/23/19 03:45 Hgb 13.0 g/dL (13.5-17.5) L 07/23/19 03:45 Hct 39.8 % (40.0-50.0) L 07/23/19 03:45 MCV 86.3 fL (80-95) 07/23/19 03:45 MCH 28.2 pg (27.0-33.0) 07/23/19 03:45 MCHC 32.7 g/dL (32.0-36.0) 07/23/19 03:45 RDW 21.1 % (11.8-14.1) H 07/23/19 03:45 Plt Count 212 x1000/uL (130-400) 07/23/19 03:45 MPV 9.9 fL (8.0-11.0) 07/23/19 03:45 Immature Gran % 0.1 07/23/19 03:45 Neutrophils % 86.7 07/23/19 03:45 Lymphocytes % 8.5 07/23/19 03:45 Monocytes % 4.0 07/23/19 03:45 Eosinophils % 0.4 07/23/19 03:45 Basophils % 0.3 07/23/19 03:45 Absolute Neutrophils 5.80 k/cumm (1.2-6.7) 07/23/19 03:45 Absolute Lymphocytes 0.57 k/cumm (1.2-3.4) L 07/23/19 03:45 Absolute Monocytes 0.27 k/cumm (0.11-0.7) 07/23/19 03:45 Absolute Eosinophils 0.03 k/cumm (0.0-0.7) 07/23/19 03:45 Absolute Basophils 0.02 k/cumm (0.0-0.2) 07/23/19 03:45 Sodium 138 mmol/L (136-145) 07/24/19 06:35 Potassium 3.5 mmol/L (3.5-5.1) 07/24/19 06:35 Chloride 99 mmol/L (98-107) 07/24/19 06:35 Carbon Dioxide 31.1 mmol/L (21.0-32.0) 07/24/19 06:35 Anion Gap 7.9 mmol/L (3-11) 07/24/19 06:35 BUN 8 mg/dL (7-18) D 07/24/19 06:35 Creatinine 0.76 mg/dL (0.70-1.30) 07/24/19 06:35 Estimated GFR/1.73 m2 >= 60.00 (mL/min/1.73m2) 07/24/19 06:35 Glucose 155 mg/dL (74-106) H 07/24/19 06:35 Calcium 8.6 mg/dL (8.5-10.1) 07/24/19 06:35 Total Bilirubin 3.1 mg/dL (0.2-1.0) H 07/24/19 06:35 AST 18 U/L (15-37) 07/24/19 06:35 ALT 25 U/L (16-63) 07/24/19 06:35 Alkaline Phosphatase 60 U/L (46-116) 07/24/19 06:35 Total Protein 6.9 g/dL (6.4-8.2) 07/24/19 06:35 Albumin 3.5 g/dL (3.4-5.0) 07/24/19 06:35 Lipase 84 U/L (73-393) 07/23/19 03:45 Urine Color Yellow (Yellow) 07/23/19 04:00 Urine Clarity Clear (Clear) 07/23/19 04:00 Urine pH 7.0 (5-8) 07/23/19 04:00 Ur Specific [place] 1.020 (1.005-1.025) 07/23/19 04:00 Urine Protein 30 mg/dL (Negative) H 07/23/19 04:00 Urine Ketones 15 mg/dL (Negative) H 07/23/19 04:00 Urine Blood Trace-intact (Negative) H 07/23/19 04:00 Urine Nitrite Negative (Negative) 07/23/19 04:00 Urine Bilirubin Negative (Negative) 07/23/19 04:00 Urine Urobilinogen 1.0 EU/dL (Up TO 0.2) H 07/23/19 04:00 Ur Leukocyte Esterase Negative (Negative) 07/23/19 04:00 Urine RBC 3-5 HPF (0-2) H 07/23/19 04:00 Urine WBC 0-2 HPF (0-5) 07/23/19 04:00 Ur Epithelial Cells Rare HPF (Negative) 07/23/19 04:00 Urine Crystals Negative HPF (Negative) 07/23/19 04:00 Urine Bacteria Rare HPF (Negative) 07/23/19 04:00 Urine Casts Negative LPF (Negative) 07/23/19 04:00 Urine Mucus Trace (Negative) 07/23/19 04:00 Ur Culture Indicated? No 07/23/19 04:00 Urine Glucose 100 mg/dL (Negative) 07/23/19 04:00
[2019-07-24] MEDS: ACETAMINOPHEN 1,000 MG/100 ML BTL 400 MG IVPB (19:48)
[2019-07-24] MEDS: diphenhydrAMINE 25 MG CAP PO (20:56)
[2019-07-24] MEDS: Latanoprost 0.005% 2.5 ML BTL OP (20:57)
[2019-07-25] VITALS (13 sets, daily range): BP systolic 147–175; BP diastolic 70–93; PULSE 74–88; RESP 16–18; TEMP 36.5–37.8; O2SAT 94–97
[2019-07-25] MEDS: Lactated Ringers 1,000 ML 150 ML IV ×2 (03:49→10:30)
[2019-07-25] MEDS: ACETAMINOPHEN 1,000 MG/100 ML BTL 400 MG IVPB ×3 (03:49→20:09)
[2019-07-25] MEDS: Normal Saline Flush 10 ML SYR IVP ×3 (03:49→14:04)
[2019-07-25 07:04] LABS: Abs Immature Grans 0.01 k/cumm (0.0-0.09); Absolute Basophil Count 0.01 k/cumm (0.0-0.2); Absolute Eosinophil Count 0.01 k/cumm (0.0-0.7); Absolute Lymphocyte Count 0.63 k/cumm (1.2-3.4); Absolute Monocyte Count 0.87 k/cumm (0.11-0.7); Basophils % 0.1; Eosinophils % 0.1; Immature Grans % 0.1; Lymphocytes % 7.5; Mean Corp. HGB Concentration 32.3 g/dL (32.0-36.0); Mean Corpuscular Hemoglobin 28.1 pg (27.0-33.0); Mean Corpuscular Volume 87.1 fL (80-95); Mean Platelet Volume 10.7 fL (8.0-11.0); Monocytes % 10.3; Neutrophils % 81.9; Platelet Count 156 x1000/uL (130-400); RBC 3.56 m/cumm (4.50-6.00); RBC Distribution Width 20.7 % (11.8-14.1); White Blood Cell Count 8.43 k/cumm (4.4-10.8)
[2019-07-25 07:23] LABS: Albumin 2.9 g/dL (3.4-5.0); BUN 13 mg/dL (7-18); Calcium 8.3 mg/dL (8.5-10.1); Chloride 102 mmol/L (98-107); Magnesium 1.5 mg/dL (1.8-2.4); Potassium 4.1 mmol/L (3.5-5.1)
[2019-07-25 07:44] LABS: Anisocytosis 2+; Diff Comment RBC Morph Reviewed; Hypochromasia 1+; Microcytosis 1+
[2019-07-25 07:45] LABS: Calculated LDL 53 mg/dL; Cholesterol 111 mg/dL (<200); HDL Cholesterol 46 mg/dL (40-60); Triglyceride 63 mg/dL (<150)
[2019-07-25 07:49] LABS: ALT 959 U/L (16-63); Alkaline Phosphatase 64 U/L (46-116); Amylase 27 U/L (25-115); Bilirubin, Total 1.8 mg/dL (0.2-1.0); CREATININE 0.91 mg/dL (0.70-1.30); Glucose 168 mg/dL (74-106); Lipase 35 U/L (73-393); Sodium 139 mmol/L (136-145); Total Protein 6.3 g/dL (6.4-8.2)
[2019-07-25 07:52] LABS: AST 1033 U/L (15-37)
[2019-07-25] MEDS: Insulin Aspart 300 UNITS/3 ML PEN SC ×3 (08:36→21:08)
[2019-07-25] MEDS: Lisinopril 10 MG TAB PO (08:37)
[2019-07-25] MEDS: Enoxaparin 40 MG/0.4 ML SYR SC (08:37)
--- NOTE | 2019-07-25 09:29 | PDOC.CMPRO ---
- If Service Date Differs Date of service: 07/25/19 Time of Service: 09:29 Care Management Progress Note S/O: Jemal is sitting in a chair watching television when CM comes to meet with him. He is pleasant and easily engages in conversation. He reports he is feeling better, says his pain has been obliterated, and he hopes to be going home soon. CM continues to follow. A: Jemal is a 78 year old male admitted to [facility] on 07/23/2019 for right upper quadrant pain and cholelithiasis. P: Jemal will be discharged home when medically cleared by provider. Anticipate he will need an appointment with the shipping and receiving at [facility] for ERCP and stent after discharge. His , Modesta, will transport him home via private vehicle when ready. CM continues to follow.
--- NOTE | 2019-07-25 11:30 | W.PM.PROGNOT ---
Date of Service Date of service: 07/25/19 Time of Service: :30 Assessment and Plan Assessment and plan (1) Gallstones without obstruction of gallbladder: Status: Acute (2) Acute gangrenous cholecystitis: Status: Acute (3) S/P laparoscopic cholecystectomy: Status: Acute Assessment and plan: doing well pulm toilet Gi and DVT prophylaxis cont IV abx encourage walking -has bile in DIVYA. this could still be irrigation/spillage from surgery. continue to follow. Pt doing well and has no pain. Subjective Subjective Interval history since last seen: Pt is doing well. no headaches. No CP or SOB. no productive cough. no dysuria. no leg pain or swelling. He denies having any pain. He has had good output from [facility] and will d/c this. He is hungry and wants to eat. Still has bile from DIVYA- but this could still be irrigation fluid. Will continue to monitor. Exam Const General: cooperative, healthy appearing, comfortable, no acute distress, well developed and well groomed Nutritional Appearance: average body habitus and well nourished Orientation: alert, awake and oriented x3 HENMT Head: normal to inspection, normocephalic and atraumatic Ears: hearing grossly normal bilaterally and external ears normal General nose exam: external nose normal Face and sinus: normal facial exam and sinuses nontender Mouth: oral mucosae normal, lip normal, tongue normal and moist mucous membranes Teeth and gingiva: dentition normal Eyes General: appearance normal, both eyes and all related structures Conjunctivae: conjunctivae normal Sclera: sclerae normal Pupils: PERRL Neck Neck: normal visual inspection and full ROM Chest Chest: normal inspection of the chest Resp Effort & Inspection: normal respiratory effort, able to speak in complete sentences, no cough, no nasal flaring, not tachypneic and no use of accessory muscles Auscultation: clear to auscultation bilaterally, no rales, no rhonchi and no wheezes Cardio Jugular venous pressure: no JVD Rate: regular rate Rhythm: regular rhythm GI Inspection: normal to inspection, no edema and non-distended Palpation: soft, no masses, nontender and No ascites Auscultation: normal bowel sounds Other: incision c/d/i. Lg output from DIVYA and contains bile Skin General skin exam: no rashes or lesions noted Trauma: no lacerations or abrasions Neuro General: alert, oriented x3, oriented, gait normal, moves all extremities, no focal motor deficits and CN's II-XI intact bilaterally Cognition: normal cognition Speech: speech normal Gait: normal gait Motor: muscle tone normal throughout Extrem General: normal to inspection, full ROM and no clubbing, cyanosis or edema Psych Appearance: grossly normal and well kempt Mental Status: mental status grossly normal Speech and Movement: speech and movement normal Affect: normal affect Objective Objective Clinical Data: Abnormal lab results 07/25/19 07/25/19 Range/Units 06:20 06:20 RBC 3.56 L (4.50-6.00) m/cumm Hgb 10.0 L D (13.5-17.5) g/dL Hct 31.0 L D (40.0-50.0) % RDW 20.7 H (11.8-14.1) % Absolute Neutrophils 6.90 H (1.2-6.7) k/cumm Absolute Lymphocytes 0.63 L (1.2-3.4) k/cumm Absolute Monocytes 0.87 H (0.11-0.7) k/cumm Glucose 168 H (74-106) mg/dL Calcium 8.3 L (8.5-10.1) mg/dL Magnesium 1.5 L (1.8-2.4) mg/dL Total Bilirubin 1.8 H (0.2-1.0) mg/dL AST 1033 H (15-37) U/L ALT 959 H (16-63) U/L Total Protein 6.3 L (6.4-8.2) g/dL Albumin 2.9 L (3.4-5.0) g/dL Lipase 35 L (73-393) U/L Vital Signs Temperature 36.5 C 07/25/19 07:50 Temperature Source Tympanic 07/25/19 07:50 Pulse 88 07/25/19 07:50 Pulse Rhythm Regular 07/25/19 03:45 Pulse 67 07/23/19 04:31 Respiratory Rate 17 07/25/19 07:50 Respiratory Effort Non-Labored 07/25/19 03:45 Respiratory Depth Normal 07/25/19 03:45 Respiratory Pattern Normal 07/25/19 03:45 Blood Pressure 165/80 H 07/25/19 07:50 Blood Pressure Mean 101 07/23/19 05:46 Blood Pressure Position Sitting 07/23/19 03:36 Pulse Oximetry 94 L 07/25/19 07:50 Respiratory End-tidal CO2 20 07/24/19 14:47 Oxygen Delivery Method Room Air 07/25/19 07:50 Oxygen Flow Rate 0 07/25/19 07:50 Pain Level 0 07/25/19 07:50 Comment 07/25/19 07:00 Intake & Output 07/24/19 07/24/19 07/25/19 11:59 23:59 11:59 Intake Total 1071.667 / 4486.667 3415 / 4486.667 3120 / 3120 Output Total 925 / 2400 1475 / 2400 500 / 500 Balance 146.667 / 2086.667 1940 / 2086.667 2620 / 2620 Intake: IV 1071.667 / 4486.667 3415 / 4486.667 2120 / 2120 Oral 0 / 0 900 / 900 Injectate 100 / 100 Mid Anterior Medial Abdomen 100 / 100 Output: Drainage 325 / 325 150 / 150 Mid Anterior Medial Abdomen 325 / 325 150 / 150 Urine 925 / 1575 650 / 1575 350 / 350 Estimated Blood Loss 500 / 500 Other: Urine Color Pale Straw Light Nadeen Urine Appearance Clear Clear Clear Urine Odor None Emesis Description None Voiding Methods Urinal Laboratory Results WBC 8.43 k/cumm (4.4-10.8) 07/25/19 06:20 RBC 3.56 m/cumm (4.50-6.00) L 07/25/19 06:20 Hgb 10.0 g/dL (13.5-17.5) L D 07/25/19 06:20 Hct 31.0 % (40.0-50.0) L D 07/25/19 06:20 MCV 87.1 fL (80-95) 07/25/19 06:20 MCH 28.1 pg (27.0-33.0) 07/25/19 06:20 MCHC 32.3 g/dL (32.0-36.0) 07/25/19 06:20 RDW 20.7 % (11.8-14.1) H 07/25/19 06:20 Plt Count 156 x1000/uL (130-400) 07/25/19 06:20 MPV 10.7 fL (8.0-11.0) 07/25/19 06:20 Immature Gran % 0.1 07/25/19 06:20 Neutrophils % 81.9 07/25/19 06:20 Lymphocytes % 7.5 07/25/19 06:20 Monocytes % 10.3 07/25/19 06:20 Eosinophils % 0.1 07/25/19 06:20 Basophils % 0.1 07/25/19 06:20 Absolute Neutrophils 6.90 k/cumm (1.2-6.7) H 07/25/19 06:20 Absolute Lymphocytes 0.63 k/cumm (1.2-3.4) L 07/25/19 06:20 Absolute Monocytes 0.87 k/cumm (0.11-0.7) H 07/25/19 06:20 Absolute Eosinophils 0.01 k/cumm (0.0-0.7) 07/25/19 06:20 Absolute Basophils 0.01 k/cumm (0.0-0.2) 07/25/19 06:20 Differential Comment Rbc morph reviewed 07/25/19 06:20 RBC Morphology See below 07/25/19 06:20 Hypochromasia 1+ 07/25/19 06:20 Anisocytosis 2+ 07/25/19 06:20 Microcytosis 1+ 07/25/19 06:20 Sodium 139 mmol/L (136-145) 07/25/19 06:20 Potassium 4.1 mmol/L (3.5-5.1) 07/25/19 06:20 Chloride 102 mmol/L (98-107) 07/25/19 06:20 Carbon Dioxide 31.0 mmol/L (21.0-32.0) 07/25/19 06:20 Anion Gap 6.0 mmol/L (3-11) 07/25/19 06:20 BUN 13 mg/dL (7-18) 07/25/19 06:20 Creatinine 0.91 mg/dL (0.70-1.30) 07/25/19 06:20 Estimated GFR/1.73 m2 >= 60.00 (mL/min/1.73m2) 07/25/19 06:20 Glucose 168 mg/dL (74-106) H 07/25/19 06:20 Calcium 8.3 mg/dL (8.5-10.1) L 07/25/19 06:20 Magnesium 1.5 mg/dL (1.8-2.4) L 07/25/19 06:20 Total Bilirubin 1.8 mg/dL (0.2-1.0) H 07/25/19 06:20 AST 1033 U/L (15-37) H 07/25/19 06:20 ALT 959 U/L (16-63) H 07/25/19 06:20 Alkaline Phosphatase 64 U/L (46-116) 07/25/19 06:20 Total Protein 6.3 g/dL (6.4-8.2) L 07/25/19 06:20 Albumin 2.9 g/dL (3.4-5.0) L 07/25/19 06:20 Triglycerides 63 mg/dL (<150) 07/25/19 06:20 Total Cholesterol 111 mg/dL (<200) 07/25/19 06:20 LDL Cholesterol, Calc 53 mg/dL 07/25/19 06:20 HDL Cholesterol 46 mg/dL (40-60) 07/25/19 06:20 Amylase 27 U/L (25-115) 07/25/19 06:20 Lipase 35 U/L (73-393) L 07/25/19 06:20 Urine Color Yellow (Yellow) 07/23/19 04:00 Urine Clarity Clear (Clear) 07/23/19 04:00 Urine pH 7.0 (5-8) 07/23/19 04:00 Ur Specific [place] 1.020 (1.005-1.025) 07/23/19 04:00 Urine Protein 30 mg/dL (Negative) H 07/23/19 04:00 Urine Ketones 15 mg/dL (Negative) H 07/23/19 04:00 Urine Blood Trace-intact (Negative) H 07/23/19 04:00 Urine Nitrite Negative (Negative) 07/23/19 04:00 Urine Bilirubin Negative (Negative) 07/23/19 04:00 Urine Urobilinogen 1.0 EU/dL (Up TO 0.2) H 07/23/19 04:00 Ur Leukocyte Esterase Negative (Negative) 07/23/19 04:00 Urine RBC 3-5 HPF (0-2) H 07/23/19 04:00 Urine WBC 0-2 HPF (0-5) 07/23/19 04:00 Ur Epithelial Cells Rare HPF (Negative) 07/23/19 04:00 Urine Crystals Negative HPF (Negative) 07/23/19 04:00 Urine Bacteria Rare HPF (Negative) 07/23/19 04:00 Urine Casts Negative LPF (Negative) 07/23/19 04:00 Urine Mucus Trace (Negative) 07/23/19 04:00 Ur Culture Indicated? No 07/23/19 04:00 Urine Glucose 100 mg/dL (Negative) 07/23/19 04:00
[2019-07-25] MEDS: levoFLOXacin 750 MG/150 ML BAG 100 MG IVPB (12:03)
[2019-07-25] MEDS: Pantoprazole 40 MG VIAL IVP (12:04)
[2019-07-25] MEDS: MAGNESIUM SULFATE 2 GM/50 ML BAG IVPB (12:04)
[2019-07-25] MEDS: Latanoprost 0.005% 2.5 ML BTL OP (20:09)
[2019-07-25] MEDS: traZODone 50 MG TAB PO (21:08)
[2019-07-26] VITALS (7 sets, daily range): BP systolic 162–178; BP diastolic 62–87; PULSE 69–102; RESP 17–19; TEMP 36.8–37.5; O2SAT 97
[2019-07-26] MEDS: ACETAMINOPHEN 1,000 MG/100 ML BTL 400 MG IVPB ×3 (04:05→19:40)
[2019-07-26 06:38] LABS: HCT 29.3 % (40.0-50.0); HGB 9.4 g/dL (13.5-17.5)
[2019-07-26 06:42] LABS: ALT 778 U/L (16-63); AST 467 U/L (15-37); Albumin 2.7 g/dL (3.4-5.0); Alkaline Phosphatase 68 U/L (46-116); Bilirubin, Direct 0.45 mg/dL (0.00-0.20); Bilirubin, Total 1.5 mg/dL (0.2-1.0)
[2019-07-26 06:46] LABS: Bilirubin, Total 1.5 mg/dL (0.2-1.0); Magnesium 1.7 mg/dL (1.8-2.4)
[2019-07-26] MEDS: Enoxaparin 40 MG/0.4 ML SYR SC (08:16)
[2019-07-26] MEDS: Normal Saline Flush 10 ML SYR IVP ×3 (08:16→19:41)
[2019-07-26] MEDS: Lisinopril 10 MG TAB PO (08:17)
--- NOTE | 2019-07-26 08:28 | PDOC.CMPRO ---
- If Service Date Differs Date of service: 07/26/19 Time of Service: 08:28 Care Management Progress Note S/O: Jemal is alert and engaged with CM during assessment. He states he is having increased back pain today. Plan for him to be NPO at midnight and have a HIDA scan in the morning. He is receiving Tylenol and has Toradol ordered PRN for discomfort. He states he tends to try to get through the pain and not take any medications. He states he does not remember well and anything discussed with him should also be reviewed with his spouse. A: Jemal is a 78 year old male admitted to [facility] on 07/23/2019 for right upper quadrant pain and cholelithiasis. P: Jemal will be discharged home when medically ready per provider. He continues to remain acute patient at this time. He will have a HIDA scan in the morning and disposition to be determine. He continues to have a DIVYA in place. His , Modesta, will transport him home via private vehicle when ready. CM continues to follow.
--- NOTE | 2019-07-26 10:24 | W.PM.PROGNOT ---
Date of Service Date of service: 07/26/19 Time of Service: 10:24 Assessment and Plan Assessment and plan (1) S/P laparoscopic cholecystectomy: Status: Acute Assessment and plan: prob bile leak hida in am pro will need to go for ERCP and stent. cont abx supportive care (2) Cholelithiasis with acute on chronic cholecystitis: Status: Acute Subjective Subjective Interval history since last seen: Pt is doing well. no headaches. No CP or SOB. no productive cough. no dysuria. no leg pain or swelling. minimal pain He is still having bile from the DIVYA. Will order a HIDA in am. prob needs to go for ERCP. otherwise doing well and feeling good. Exam Const General: cooperative, healthy appearing, comfortable, no acute distress, well developed and well groomed Nutritional Appearance: average body habitus and well nourished Orientation: alert, awake and oriented x3 HENMT Head: normal to inspection, normocephalic and atraumatic Ears: hearing grossly normal bilaterally and external ears normal General nose exam: external nose normal Face and sinus: normal facial exam and sinuses nontender Mouth: oral mucosae normal, lip normal, tongue normal and moist mucous membranes Teeth and gingiva: dentition normal Eyes General: appearance normal, both eyes and all related structures Conjunctivae: conjunctivae normal Sclera: sclerae normal Pupils: PERRL Neck Neck: normal visual inspection and full ROM Chest Chest: normal inspection of the chest Resp Effort & Inspection: normal respiratory effort, able to speak in complete sentences, no cough, no nasal flaring, not tachypneic and no use of accessory muscles Auscultation: clear to auscultation bilaterally, no rales, no rhonchi and no wheezes Cardio Jugular venous pressure: no JVD Rate: regular rate Rhythm: regular rhythm GI Inspection: normal to inspection, no edema, non-distended and incision (c/d/i. ) Palpation: soft, no masses, nontender and No ascites Auscultation: normal bowel sounds Other: bile coming from DIVYA. Skin General skin exam: no rashes or lesions noted Trauma: no lacerations or abrasions Neuro General: alert, oriented x3, oriented, gait normal, moves all extremities, no focal motor deficits and CN's II-XI intact bilaterally Cognition: normal cognition Speech: speech normal Gait: normal gait Motor: muscle tone normal throughout Extrem General: normal to inspection, full ROM and no clubbing, cyanosis or edema Psych Appearance: grossly normal and well kempt Mental Status: mental status grossly normal Speech and Movement: speech and movement normal Affect: normal affect Objective Objective Clinical Data: Abnormal lab results 07/26/19 07/26/19 07/26/19 Range/Units 06:05 06:05 06:05 Hgb 9.4 L (13.5-17.5) g/dL Hct 29.3 L (40.0-50.0) % Magnesium 1.7 L (1.8-2.4) mg/dL Total Bilirubin 1.5 H 1.5 H (0.2-1.0) mg/dL Conjugated Bilirubin 0.45 H (0.00-0.20) mg/dL AST 467 H (15-37) U/L ALT 778 H (16-63) U/L Total Protein 6.0 L (6.4-8.2) g/dL Albumin 2.7 L (3.4-5.0) g/dL Vital Signs Temperature 36.8 C 07/26/19 07:28 Temperature Source Tympanic 07/26/19 07:28 Pulse 83 07/26/19 07:28 Pulse Rhythm Regular 07/26/19 09:09 Pulse 67 07/23/19 04:31 Respiratory Rate 17 07/26/19 07:28 Respiratory Effort Non-Labored 07/26/19 09:09 Respiratory Depth Normal 07/26/19 09:09 Respiratory Pattern Normal 07/26/19 09:09 Blood Pressure 171/76 H 07/26/19 07:28 Blood Pressure Mean 101 07/23/19 05:46 Blood Pressure Position Sitting 07/23/19 03:36 Pulse Oximetry 97 07/26/19 07:28 Respiratory End-tidal CO2 20 07/24/19 14:47 Oxygen Delivery Method Room Air 07/26/19 07:28 Oxygen Flow Rate 0 07/26/19 07:28 Pain Level 0 07/26/19 07:28 Comment 07/26/19 00:10 Intake & Output 07/25/19 07/25/19 07/26/19 11:59 23:59 11:59 Intake Total 4060 / 6060 2000 / 6060 125 / 125 Output Total 1400 / 3700 2300 / 3700 1910 / 1910 Balance 2660 / 2360 -300 / 2360 -1785 / -1785 Intake: IV 2120 / 3620 1500 / 3620 Oral 1840 / 2340 500 / 2340 100 / 100 Injectate 100 / 100 25 / 25 Mid Anterior Medial Abdomen 100 / 100 25 / 25 Output: Drainage 200 / 500 300 / 500 210 / 210 Mid Anterior Medial Abdomen 200 / 500 300 / 500 210 / 210 Urine 1200 / 3200 2000 / 3200 1700 / 1700 Other: Urine Color Yellow Yellow Light Nadeen Urine Appearance Clear Clear Clear Urine Odor Normal None Comment FOUND IN HAT. PT ASLEEP IN RECLINER AT THIS TIME. Voiding Methods Toilet Toilet Laboratory Results WBC 8.43 k/cumm (4.4-10.8) 07/25/19 06:20 RBC 3.56 m/cumm (4.50-6.00) L 07/25/19 06:20 Hgb 9.4 g/dL (13.5-17.5) L 07/26/19 06:05 Hct 29.3 % (40.0-50.0) L 07/26/19 06:05 MCV 87.1 fL (80-95) 07/25/19 06:20 MCH 28.1 pg (27.0-33.0) 07/25/19 06:20 MCHC 32.3 g/dL (32.0-36.0) 07/25/19 06:20 RDW 20.7 % (11.8-14.1) H 07/25/19 06:20 Plt Count 156 x1000/uL (130-400) 07/25/19 06:20 MPV 10.7 fL (8.0-11.0) 07/25/19 06:20 Immature Gran % 0.1 07/25/19 06:20 Neutrophils % 81.9 07/25/19 06:20 Lymphocytes % 7.5 07/25/19 06:20 Monocytes % 10.3 07/25/19 06:20 Eosinophils % 0.1 07/25/19 06:20 Basophils % 0.1 07/25/19 06:20 Absolute Neutrophils 6.90 k/cumm (1.2-6.7) H 07/25/19 06:20 Absolute Lymphocytes 0.63 k/cumm (1.2-3.4) L 07/25/19 06:20 Absolute Monocytes 0.87 k/cumm (0.11-0.7) H 07/25/19 06:20 Absolute Eosinophils 0.01 k/cumm (0.0-0.7) 07/25/19 06:20 Absolute Basophils 0.01 k/cumm (0.0-0.2) 07/25/19 06:20 Differential Comment Rbc morph reviewed 07/25/19 06:20 RBC Morphology See below 07/25/19 06:20 Hypochromasia 1+ 07/25/19 06:20 Anisocytosis 2+ 07/25/19 06:20 Microcytosis 1+ 07/25/19 06:20 Sodium 139 mmol/L (136-145) 07/25/19 06:20 Potassium 4.1 mmol/L (3.5-5.1) 07/25/19 06:20 Chloride 102 mmol/L (98-107) 07/25/19 06:20 Carbon Dioxide 31.0 mmol/L (21.0-32.0) 07/25/19 06:20 Anion Gap 6.0 mmol/L (3-11) 07/25/19 06:20 BUN 13 mg/dL (7-18) 07/25/19 06:20 Creatinine 0.91 mg/dL (0.70-1.30) 07/25/19 06:20 Estimated GFR/1.73 m2 >= 60.00 (mL/min/1.73m2) 07/25/19 06:20 Glucose 168 mg/dL (74-106) H 07/25/19 06:20 Calcium 8.3 mg/dL (8.5-10.1) L 07/25/19 06:20 Magnesium 1.7 mg/dL (1.8-2.4) L 07/26/19 06:05 Total Bilirubin 1.5 mg/dL (0.2-1.0) H 07/26/19 06:05 Total Bilirubin 1.5 mg/dL (0.2-1.0) H 07/26/19 06:05 Conjugated Bilirubin 0.45 mg/dL (0.00-0.20) H 07/26/19 06:05 AST 467 U/L (15-37) H 07/26/19 06:05 ALT 778 U/L (16-63) H 07/26/19 06:05 Alkaline Phosphatase 68 U/L (46-116) 07/26/19 06:05 Total Protein 6.0 g/dL (6.4-8.2) L 07/26/19 06:05 Albumin 2.7 g/dL (3.4-5.0) L 07/26/19 06:05 Triglycerides 63 mg/dL (<150) 07/25/19 06:20 Total Cholesterol 111 mg/dL (<200) 07/25/19 06:20 LDL Cholesterol, Calc 53 mg/dL 07/25/19 06:20 HDL Cholesterol 46 mg/dL (40-60) 07/25/19 06:20 Amylase 27 U/L (25-115) 07/25/19 06:20 Lipase 35 U/L (73-393) L 07/25/19 06:20 Urine Color Yellow (Yellow) 07/23/19 04:00 Urine Clarity Clear (Clear) 07/23/19 04:00 Urine pH 7.0 (5-8) 07/23/19 04:00 Ur Specific [place] 1.020 (1.005-1.025) 07/23/19 04:00 Urine Protein 30 mg/dL (Negative) H 07/23/19 04:00 Urine Ketones 15 mg/dL (Negative) H 07/23/19 04:00 Urine Blood Trace-intact (Negative) H 07/23/19 04:00 Urine Nitrite Negative (Negative) 07/23/19 04:00 Urine Bilirubin Negative (Negative) 07/23/19 04:00 Urine Urobilinogen 1.0 EU/dL (Up TO 0.2) H 07/23/19 04:00 Ur Leukocyte Esterase Negative (Negative) 07/23/19 04:00 Urine RBC 3-5 HPF (0-2) H 07/23/19 04:00 Urine WBC 0-2 HPF (0-5) 07/23/19 04:00 Ur Epithelial Cells Rare HPF (Negative) 07/23/19 04:00 Urine Crystals Negative HPF (Negative) 07/23/19 04:00 Urine Bacteria Rare HPF (Negative) 07/23/19 04:00 Urine Casts Negative LPF (Negative) 07/23/19 04:00 Urine Mucus Trace (Negative) 07/23/19 04:00 Ur Culture Indicated? No 07/23/19 04:00 Urine Glucose 100 mg/dL (Negative) 07/23/19 04:00
[2019-07-26] MEDS: IRON SUCROSE COMPLEX 200 MG in Normal Saline 100 ML 110 MG IVPB (10:35)
--- NOTE | 2019-07-26 10:52 | W.PM.DS.N ---
DS: Diagnosis Discharge Diagnosis (1) Gallstones without obstruction of gallbladder: Status: Acute (2) Acute gangrenous cholecystitis: Status: Acute (3) S/P laparoscopic cholecystectomy: Status: Acute Discharge Plan Disposition Condition: Fair Discharge Details Chief Complaint: Chest/Rib Clinical Impression: RUQ abdominal pain, Cholelithiasis Reason For Visit: RIGHT UPPER QUADRANT PAIN, CHOLELITHIASIS Admit Date/Time: 07/23/19 05:23 Admit Provider: Andria Álvarez Attending Provider: Andria Álvarez Primary Care Provider: Yumi Garrett ED Provider: Jg García [facility] and New Rx's Prescriptions: No Action glimepiride 4 mg Tablet 4 mg PO DAILY RF: 0 latanoprost 0.005 % Drops 1 drp OPHTHALMIC (EYE) DAILY RF: 0 meloxicam 15 mg Tablet 15 mg PO DAILY RF: 0 triamcinolone acetonide 0.1 % Cream 1 applic TOPICAL DAILY RF: 0 methocarbamol 750 mg Tablet 750 mg PO TID PRNRF: 0 timolol maleate [Timoptic] 0.25 % Drops 1 drp OPHTHALMIC (EYE) DAILY RF: 0 metformin 1,000 mg Tablet 1,000 mg PO BID RF: 0 lisinopril 10 mg Tablet 10 mg PO DAILY RF: 0 mometasone [Nasonex] 50 mcg/actuation [place],Non-Aerosol 1 spray INTRANASAL BID RF: 0 loratadine 10 mg Tablet 10 mg PO DAILY RF: 0 omeprazole 20 mg Tablet,Delayed Release (Dr/Ec) 20 mg PO DAILY RF: 0 DS: Data Vitals/I&O Vitals and I&O: Vital Signs Temperature 36.8 C 07/26/19 07:28 Temperature Source Tympanic 07/26/19 07:28 Pulse 83 07/26/19 07:28 Pulse Rhythm Regular 07/26/19 09:09 Pulse 67 07/23/19 04:31 Respiratory Rate 17 07/26/19 07:28 Respiratory Effort Non-Labored 07/26/19 09:09 Respiratory Depth Normal 07/26/19 09:09 Respiratory Pattern Normal 07/26/19 09:09 Blood Pressure 171/76 H 07/26/19 07:28 Blood Pressure Mean 101 07/23/19 05:46 Blood Pressure Position Sitting 07/23/19 03:36 Pulse Oximetry 97 07/26/19 07:28 Respiratory End-tidal CO2 20 07/24/19 14:47 Oxygen Delivery Method Room Air 07/26/19 07:28 Oxygen Flow Rate 0 07/26/19 07:28 Pain Level 0 07/26/19 07:28 Comment 07/26/19 00:10 Intake & Output 07/25/19 07/25/19 07/26/19 11:59 23:59 11:59 Intake Total 4060 / 6060 2000 / 6060 575 / 575 Output Total 1400 / 3700 2300 / 3700 1910 / 1910 Balance 2660 / 2360 -300 / 2360 -1335 / -1335 Intake: IV 2120 / 3620 1500 / 3620 Oral 1840 / 2340 500 / 2340 550 / 550 Injectate 100 / 100 25 / 25 Mid Anterior Medial Abdomen 100 / 100 25 / 25 Output: Drainage 200 / 500 300 / 500 210 / 210 Mid Anterior Medial Abdomen 200 / 500 300 / 500 210 / 210 Urine 1200 / 3200 2000 / 3200 1700 / 1700 Other: Urine Color Yellow Yellow Light Nadeen Urine Appearance Clear Clear Clear Urine Odor Normal None Comment FOUND IN HAT. PT ASLEEP IN RECLINER AT THIS TIME. Voiding Methods Toilet Toilet Data Completed and Pending Labs on day of discharge: Labs from last 24 hours 07/26/19 07/26/19 07/26/19 06:05 06:05 06:05 Hgb 9.4 L Hct 29.3 L Magnesium 1.7 L Total Bilirubin 1.5 H 1.5 H Conjugated Bilirubin 0.45 H AST 467 H ALT 778 H Alkaline Phosphatase 68 Total Protein 6.0 L Albumin 2.7 L [facility] Medical History (Updated 07/25/19 @ 11:53 by Jewels Pizano DO) Acute gangrenous cholecystitis (Acute) Cholelithiasis with acute on chronic cholecystitis (Acute) Diabetes mellitus (Chronic) Gallstones without obstruction of gallbladder (Acute) GERD (gastroesophageal reflux disease) (Chronic) Glaucoma (Chronic) Hemochromatosis (Chronic) Surgical History (Updated 07/25/19 @ 17:18 by Jewels Pizano DO) Previous back surgery (Acute) S/P laparoscopic cholecystectomy (Acute) Social History Smoking/Tobacco Use Status: Never Drug use: Never Do you feel safe at home: Yes Do you feel safe in your relationship?: Yes
[2019-07-26] MEDS: Milk of Magnesia 30 ML CUP PO (12:19)
[2019-07-26] MEDS: levoFLOXacin 750 MG/150 ML BAG 100 MG IVPB (12:19)
[2019-07-26] MEDS: Insulin Aspart 300 UNITS/3 ML PEN SC ×2 (12:20→16:47)
[2019-07-26] MEDS: Pantoprazole 40 MG VIAL IVP (12:20)
[2019-07-26] MEDS: Lactated Ringers 1,000 ML 30 ML IV (16:46)
[2019-07-26] MEDS: traZODone 50 MG TAB PO (19:41)
[2019-07-26] MEDS: Latanoprost 0.005% 2.5 ML BTL OP (19:41)
[2019-07-26] MEDS: Sennosides/Docusate Sodium TAB 1 TAB PO (19:41)
[2019-07-27] VITALS (9 sets, daily range): BP systolic 163–218; BP diastolic 45–98; PULSE 76–92; RESP 17–21; TEMP 36.2–37; O2SAT 93–99
[2019-07-27] MEDS: ACETAMINOPHEN 1,000 MG/100 ML BTL 400 MG IVPB ×3 (03:55→20:04)
[2019-07-27] MEDS: Normal Saline Flush 10 ML SYR IVP ×7 (03:55→23:05)
--- NOTE | 2019-07-27 07:24 | W.PM.PROGNOT ---
Documented by User: ARDEN Aleman 07/27/19 07:28 Date of Service Date of service: 07/27/19 Time of Service: 07:24 Assessment and Plan Assessment and plan (1) S/P laparoscopic cholecystectomy: Status: Acute Assessment and plan: POD #3 s/p laparoscopic cholecystectomy. Awaiting HIDA scan today, to determine if he needs ERCP with stent placement. (+) Flatus, No BM. He has milk of mag. ordered PRN. Encouraged activity out of bed as tolerated. Diet- currently NPO for scan. Subjective Subjective Interval history since last seen: Patient reports that he is feeling well today. He reports he has not had a BM yet. (+) Flatus. Exam Const General: cooperative, healthy appearing and comfortable Orientation: alert and oriented x3 Resp Effort & Inspection: normal respiratory effort, no audible wheezes and no cough GI Inspection: normal to inspection and non-distended Palpation: soft, guarding and tender in the RUQ Other: DIVYA drain- green/brown bile colored drainage Objective Objective Clinical Data: Vital Signs Temperature 36.8 C 07/27/19 07:05 Temperature Source Tympanic 07/27/19 07:05 Pulse 79 07/27/19 07:05 Pulse Rhythm Regular 07/27/19 02:45 Pulse 67 07/23/19 04:31 Respiratory Rate 19 07/27/19 07:05 Respiratory Effort Non-Labored 07/27/19 02:45 Respiratory Depth Normal 07/27/19 02:45 Respiratory Pattern Normal 07/27/19 02:45 Blood Pressure 199/45 H 07/27/19 07:05 Blood Pressure Mean 101 07/23/19 05:46 Blood Pressure Position Sitting 07/23/19 03:36 Pulse Oximetry 98 07/27/19 07:05 Respiratory End-tidal CO2 20 07/24/19 14:47 Oxygen Delivery Method Room Air 07/27/19 03:22 Oxygen Flow Rate 0 07/27/19 03:22 Pain Level 0 07/27/19 07:05 Comment 07/26/19 00:10 Intake & Output 07/26/19 07/27/19 07/27/19 18:59 06:59 18:59 Intake Total 1110 / 1530 420 / 1530 Output Total 730 / 2425 1695 / 2425 Balance 380 / -895 -1275 / -895 Intake: IV 360 / 480 120 / 480 Oral 750 / 1050 300 / 1050 Output: Drainage 180 / 200 20 / 200 Mid Anterior Medial Abdomen 180 / 200 20 / 200 Urine 550 / 2225 1675 / 2225 Other: Urine Color Brown Yellow Urine Appearance Clear Clear Urine Odor None None Comment very brown in color. Voiding Methods Toilet Urinal Laboratory Results WBC 8.43 k/cumm (4.4-10.8) 07/25/19 06:20 RBC 3.56 m/cumm (4.50-6.00) L 07/25/19 06:20 Hgb 9.4 g/dL (13.5-17.5) L 07/26/19 06:05 Hct 29.3 % (40.0-50.0) L 07/26/19 06:05 MCV 87.1 fL (80-95) 07/25/19 06:20 MCH 28.1 pg (27.0-33.0) 07/25/19 06:20 MCHC 32.3 g/dL (32.0-36.0) 07/25/19 06:20 RDW 20.7 % (11.8-14.1) H 07/25/19 06:20 Plt Count 156 x1000/uL (130-400) 07/25/19 06:20 MPV 10.7 fL (8.0-11.0) 07/25/19 06:20 Immature Gran % 0.1 07/25/19 06:20 Neutrophils % 81.9 07/25/19 06:20 Lymphocytes % 7.5 07/25/19 06:20 Monocytes % 10.3 07/25/19 06:20 Eosinophils % 0.1 07/25/19 06:20 Basophils % 0.1 07/25/19 06:20 Absolute Neutrophils 6.90 k/cumm (1.2-6.7) H 07/25/19 06:20 Absolute Lymphocytes 0.63 k/cumm (1.2-3.4) L 07/25/19 06:20 Absolute Monocytes 0.87 k/cumm (0.11-0.7) H 07/25/19 06:20 Absolute Eosinophils 0.01 k/cumm (0.0-0.7) 07/25/19 06:20 Absolute Basophils 0.01 k/cumm (0.0-0.2) 07/25/19 06:20 Differential Comment Rbc morph reviewed 07/25/19 06:20 RBC Morphology See below 07/25/19 06:20 Hypochromasia 1+ 07/25/19 06:20 Anisocytosis 2+ 07/25/19 06:20 Microcytosis 1+ 07/25/19 06:20 Sodium 139 mmol/L (136-145) 07/25/19 06:20 Potassium 4.1 mmol/L (3.5-5.1) 07/25/19 06:20 Chloride 102 mmol/L (98-107) 07/25/19 06:20 Carbon Dioxide 31.0 mmol/L (21.0-32.0) 07/25/19 06:20 Anion Gap 6.0 mmol/L (3-11) 07/25/19 06:20 BUN 13 mg/dL (7-18) 07/25/19 06:20 Creatinine 0.91 mg/dL (0.70-1.30) 07/25/19 06:20 Estimated GFR/1.73 m2 >= 60.00 (mL/min/1.73m2) 07/25/19 06:20 Glucose 168 mg/dL (74-106) H 07/25/19 06:20 Calcium 8.3 mg/dL (8.5-10.1) L 07/25/19 06:20 Magnesium 1.7 mg/dL (1.8-2.4) L 07/26/19 06:05 Total Bilirubin 1.5 mg/dL (0.2-1.0) H 07/26/19 06:05 Total Bilirubin 1.5 mg/dL (0.2-1.0) H 07/26/19 06:05 Conjugated Bilirubin 0.45 mg/dL (0.00-0.20) H 07/26/19 06:05 AST 467 U/L (15-37) H 07/26/19 06:05 ALT 778 U/L (16-63) H 07/26/19 06:05 Alkaline Phosphatase 68 U/L (46-116) 07/26/19 06:05 Total Protein 6.0 g/dL (6.4-8.2) L 07/26/19 06:05 Albumin 2.7 g/dL (3.4-5.0) L 07/26/19 06:05 Triglycerides 63 mg/dL (<150) 07/25/19 06:20 Total Cholesterol 111 mg/dL (<200) 07/25/19 06:20 LDL Cholesterol, Calc 53 mg/dL 07/25/19 06:20 HDL Cholesterol 46 mg/dL (40-60) 07/25/19 06:20 Amylase 27 U/L (25-115) 07/25/19 06:20 Lipase 35 U/L (73-393) L 07/25/19 06:20 Urine Color Yellow (Yellow) 07/23/19 04:00 Urine Clarity Clear (Clear) 07/23/19 04:00 Urine pH 7.0 (5-8) 07/23/19 04:00 Ur Specific [place] 1.020 (1.005-1.025) 07/23/19 04:00 Urine Protein 30 mg/dL (Negative) H 07/23/19 04:00 Urine Ketones 15 mg/dL (Negative) H 07/23/19 04:00 Urine Blood Trace-intact (Negative) H 07/23/19 04:00 Urine Nitrite Negative (Negative) 07/23/19 04:00 Urine Bilirubin Negative (Negative) 07/23/19 04:00 Urine Urobilinogen 1.0 EU/dL (Up TO 0.2) H 07/23/19 04:00 Ur Leukocyte Esterase Negative (Negative) 07/23/19 04:00 Urine RBC 3-5 HPF (0-2) H 07/23/19 04:00 Urine WBC 0-2 HPF (0-5) 07/23/19 04:00 Ur Epithelial Cells Rare HPF (Negative) 07/23/19 04:00 Urine Crystals Negative HPF (Negative) 07/23/19 04:00 Urine Bacteria Rare HPF (Negative) 07/23/19 04:00 Urine Casts Negative LPF (Negative) 07/23/19 04:00 Urine Mucus Trace (Negative) 07/23/19 04:00 Ur Culture Indicated? No 07/23/19 04:00 Urine Glucose 100 mg/dL (Negative) 07/23/19 04:00 Documented by User: Jewels Pizano DO 07/27/19 13:03 Assessment and Plan Assessment and plan (1) Bile leak, postoperative: Status: Acute Assessment and plan: HIDA scan shows small amount of tracer in the GB fossa. plan on sending pt for ERCP and stent. [place] [facility] [place] supportive cares pt needs to have BM BP elevated despite medicating for pain. Will give 12.5mg lopressor.
--- NOTE | 2019-07-27 08:27 | DI.NM_ITS ---
EXAM: NM HEPATOBILIARY SCAN GRP CLINICAL HISTORY: bile leak s/p lap jody. ABD PAIN TECHNIQUE: Injected dose: 5 mCi Tc-99 mebrofenin Initial dynamic images: 60 minutes COMPARISON: CT ABDOMEN PELVIS W from 07/23/2019 FINDINGS: Normal hepatic transit time. Prompt excretion into the small bowel. The patient is status post cholecystectomy. There is a collection of radiotracer in the gallbladder fossa. The finding is suspicious for of bile leak. IMPRESSION: 1. Collection of isotope seen in the gallbladder fossa. The findings are suspicious for a bile leak.
--- NOTE | 2019-07-27 09:22 | CMPROGNOTE_ITS ---
Care Management Progress Note S/O: Jemal has been NPO since midnight awaiting HIDA scan this morning. He is receiving Tylenol and has Toradol ordered PRN for discomfort. Discharge planning requires presence due to Jemal experiencing some reported memory deficits. He is being encouraged to be out of bed and moving when able to tolerate. CM continues to follow. A: Jemal is a 78 year old male admitted to [facility] on 07/23/2019 for right upper quadrant pain and cholelithiasis. P: Jemal will be discharged home when medically ready per provider. He continues to remain acute patient at this time. He will have a HIDA scan in the morning and disposition to be determine. He continues to have a DIVYA in place. Discharge planning requires presence due to Jemal experiencing some reported memory deficits. His , Modesta, will transport him home via private vehicle when ready. CM continues to follow. Per MD: Awaiting HIDA scan today, to determine if he needs ERCP with stent placement.
[2019-07-27] MEDS: Enoxaparin 40 MG/0.4 ML SYR SC (10:06)
[2019-07-27] MEDS: Ketorolac 15 MG/ML VIAL IVP (10:06)
[2019-07-27] MEDS: Milk of Magnesia 30 ML CUP PO (10:07)
[2019-07-27] MEDS: Sennosides/Docusate Sodium TAB 1 TAB PO ×2 (10:08→20:03)
[2019-07-27] MEDS: Lisinopril 10 MG TAB PO (10:08)
[2019-07-27] MEDS: MORPHine 2 MG/ML SYR IVP ×6 (11:43→23:05)
[2019-07-27] MEDS: levoFLOXacin 750 MG/150 ML BAG 100 MG IVPB (11:46)
[2019-07-27] MEDS: Pantoprazole 40 MG VIAL IVP (11:47)
[2019-07-27] MEDS: Metoprolol 12.5 MG TAB PO (12:55)
[2019-07-27] MEDS: Magnesium Citrate 300 ML BTL PO (12:55)
[2019-07-27] MEDS: HYDROmorphone 2 MG/ML VIAL 0.5 MG IVP (15:02)
[2019-07-27] MEDS: Ondansetron 4 MG/2 ML VIAL IVP (15:03)
--- NOTE | 2019-07-27 16:08 | CMPROGNOTE_ITS ---
- If Service Date Differs Date of service: 07/27/19 Time of Service: 16:08 Care Management Progress Note S/O: Jemal has been NPO since midnight he had his HIDA scan this morning awaiting results. When CM enters the room Jemal is on his side and complaining of increasing discomfort and he is hypertensive. Jemal request that CM contact his spouse Modesta and request she come in. CM contacted Modesta and reviewed changes she will be in to sit with him. Disposition to be determined per provider he will ne ed an ERCP. He continues to have a DIVYA drain and IV pain management. A: Jemal is a 78 year old male admitted to [facility] on 07/23/2019 for right upper quadrant pain and cholelithiasis. P: Jemal will be discharged home when medically ready per provider. He continues to remain acute patient at this time. He will have a HIDA scan in the morning and disposition to be determine. He continues to have a DIVYA in place. Discharge planning requires presence due to Jemal experiencing some reported memory deficits. His , Modesta, will transport him home via private vehicle when ready. CM continues to follow. Per MD: Awaiting HIDA scan today, to determine if he needs ERCP with stent placement.
[2019-07-27] MEDS: Bisacodyl 10 MG SUPP PR ×2 (17:00→20:03)
[2019-07-27] MEDS: Mineral Oil-Enema 133 ML BTL PR (18:12)
[2019-07-27] MEDS: Lactated Ringers 1,000 ML 30 ML IV (18:38)
[2019-07-27] MEDS: Insulin Aspart 300 UNITS/3 ML PEN SC (21:41)
[2019-07-27] MEDS: Latanoprost 0.005% 2.5 ML BTL OP (21:43)
[2019-07-27] MEDS: traZODone 100 MG TAB PO (21:43)
--- NOTE | 2019-07-27 21:50 | DI.RAD_ITS ---
EXAM: XR ABDOMEN FLAT PLATE INDICATION: abdom pain. COMPARISON: No exams were available for comparison TECHNIQUE: 2D digital imaging was performed. FINDINGS: There is a question of an infiltrate in the right lung base. In the right upper quadrant, there are surgical clips, skin nellie and a surgical drain in place. These probably lie in the gallbladder fo ssa. The bowel gas pattern is nonspecific without evidence of obstruction. There is a moderate amou nt of stool throughout the colon suggesting constipation. No pneumoperitoneum is present. Degenerat kalia changes are seen in the spine. IMPRESSION: 1. Postsurgical changes in the right upper quadrant with surgical clips, skin nellie and a surgical drain. 2. Findings suggestive of constipation.
--- NOTE | 2019-07-27 22:34 | DI.VRAD_ITS ---
PROCEDURE INFORMATION: Exam: XR Abdomen, 1 View Exam date and time: 07/27/2019 9:58 PM Age: 78 years old Clinical history: Generalized; Prior surgery; Surgery date: 3-7 days post-operative; Surgery type: Cholecystectomy 07/24/19; Patient HX: Abdominal pain, unable to have a bowel movement; Additional info: Bile trevon post operative TECHNIQUE: Imaging protocol: XR of the abdomen. Views: Frontal supine view of the abdomen. 1 View. COMPARISON: DE HEPATOBILIARY SCAN [facility] 07/27/2019 8:27 AM FINDINGS: Lower thorax: Patchy airspace disease in the right lung base which could represent atelectasis or mild basilar infiltrate. Heart size normal. Gastrointestinal tract: Nonobstructive bowel gas pattern. There is a moderate amount of stool and gas distributed throughout the colon suggesting constipation. Limited small bowel assessment due to the paucity of small bowel gas present. Intraperitoneal space: No free air is evident. No gross soft tissue masses. Organs: No evidence of organomegaly. Bones/joints: No pathological calcifications. No acute osseous abnormalities. Soft tissues: Right upper quadrant surgical clips and skin nellie suggest probable recent cholecystectomy. There is a surgical drain in place in the region of the gallbladder fossa. IMPRESSION: 1. Right upper quadrant surgical drain with postoperative clips and skin nellie consistent with recent cholecystectomy. 2. There is a moderate amount of stool and gas distributed throughout the colon suggesting constipation. Nonobstructive pattern. 3. Patchy right basilar airspace disease consistent with atelectasis or infiltrate. Dictated and Authenticated by: Jemal Martin MD. Ordering:SUZI Donis MD
[2019-07-27] MEDS: Methylnaltrexone 12 MG/0.6 ML VIAL SC (23:05)
[2019-07-28] VITALS (8 sets, daily range): BP systolic 147–191; BP diastolic 74–91; PULSE 71–93; RESP 18–20; TEMP 36–36.8; O2SAT 93–96
[2019-07-28] MEDS: ACETAMINOPHEN 1,000 MG/100 ML BTL 400 MG IVPB ×2 (05:04→18:14)
[2019-07-28] MEDS: MORPHine 2 MG/ML SYR IVP ×3 (06:56→11:36)
[2019-07-28] MEDS: Normal Saline Flush 10 ML SYR IVP ×3 (06:57→08:12)
[2019-07-28 06:59] LABS: Abs Immature Grans 0.01 k/cumm (0.0-0.09); Absolute Basophil Count 0.01 k/cumm (0.0-0.2); Absolute Eosinophil Count 0.06 k/cumm (0.0-0.7); Absolute Lymphocyte Count 0.65 k/cumm (1.2-3.4); Absolute Monocyte Count 0.69 k/cumm (0.11-0.7); Absolute Neutrophil Count 5.48 k/cumm (1.2-6.7); Basophils % 0.1; Eosinophils % 0.9; HCT 30.6 % (40.0-50.0); HGB 9.9 g/dL (13.5-17.5); Immature Grans % 0.1; Lymphocytes % 9.4; Mean Corp. HGB Concentration 32.4 g/dL (32.0-36.0); Mean Corpuscular Volume 86.7 fL (80-95); Mean Platelet Volume 10.1 fL (8.0-11.0); Neutrophils % 79.5; Platelet Count 189 x1000/uL (130-400); RBC 3.53 m/cumm (4.50-6.00); RBC Distribution Width 20.9 % (11.8-14.1)
[2019-07-28] MEDS: Ondansetron 4 MG/2 ML VIAL IVP (07:04)
[2019-07-28 07:20] LABS: Amylase 15 U/L (25-115); Total Protein 5.8 g/dL (6.4-8.2)
[2019-07-28 07:56] LABS: ALT 490 U/L (16-63); AST 148 U/L (15-37); Albumin 2.4 g/dL (3.4-5.0); Alkaline Phosphatase 120 U/L (46-116); Anion Gap 7.4 mmol/L (3-11); BUN 16 mg/dL (7-18); Bilirubin, Total 1.7 mg/dL (0.2-1.0); CO2 28.6 mmol/L (21.0-32.0); Calcium 8.1 mg/dL (8.5-10.1); Chloride 103 mmol/L (98-107); Glucose 152 mg/dL (74-106); Lipase 29 U/L (73-393); Potassium 3.9 mmol/L (3.5-5.1); Sodium 139 mmol/L (136-145)
[2019-07-28 08:08] LABS: Troponin I < 0.05 ng/Ml (<0.06)
[2019-07-28] MEDS: Insulin Aspart 300 UNITS/3 ML PEN SC ×2 (08:11→21:06)
[2019-07-28] MEDS: Aspirin 81 MG CHEW 324 MG CH (08:11)
--- NOTE | 2019-07-28 08:11 | PGE_ITS ---
Date of Service Date of service: 07/28/19 Time of Service: 08:11 Assessment and Plan Assessment and plan (1) Bile leak, postoperative: Status: Acute Assessment and plan: Is scheduled to have ERCP and stent placement at [facility] [place]. However given his chest discomfort, will need to hold off until we complete cardiac work up. (2) S/P laparoscopic cholecystectomy: Status: Acute Assessment and plan: POD #4 Attempted several bowel meds overnight, without any success. No BM. Chest Pressure- Ordered EKG and Troponins; both negative. Also spoke with Dr. Godinez and requested a medical consult for further assistance with this. Also ordered GI cocktail, in case this is relux/GI related. Continue NPO. Abdominal Pain- Currently being well managed with ordered pain medications. Subjective Subjective Interval history since last seen: Arrived with patient transferring to the chair. Patient reports that he is very uncomfortable, feeling like he needs to have a BM. He still has not had a BM despite bowel meds. ~5 mins after seeing this provider the patient was complaining of left sided chest pressure. This did not increase with deep breathing and he was unsure if he had experienced this type of discomfort in the past. He expressed that he felt hot and sweaty, denied dizziness. Exam Const General: cooperative and acute distress Orientation: alert and oriented x3 Resp Effort & Inspection: normal respiratory effort, no audible wheezes and no cough Cardio Jugular venous pressure: no JVD Rate: regular rate Rhythm: regular rhythm Heart Sounds: S1 normal and S2 normal GI Inspection: normal to inspection and non-distended Palpation: soft, no guarding and tender in the RUQ Auscultation: hypoactive bowel sounds Objective Objective Clinical Data: Abnormal lab results 07/28/19 07/28/19 Range/Units 06:10 06:10 RBC 3.53 L (4.50-6.00) m/cumm Hgb 9.9 L (13.5-17.5) g/dL Hct 30.6 L (40.0-50.0) % RDW 20.9 H (11.8-14.1) % Absolute Lymphocytes 0.65 L (1.2-3.4) k/cumm Glucose 152 H (74-106) mg/dL Calcium 8.1 L (8.5-10.1) mg/dL Total Bilirubin 1.7 H (0.2-1.0) mg/dL AST 148 H (15-37) U/L ALT 490 H (16-63) U/L Alkaline Phosphatase 120 H (46-116) U/L Total Protein 5.8 L (6.4-8.2) g/dL Albumin 2.4 L (3.4-5.0) g/dL Amylase 15 L (25-115) U/L Lipase 29 L (73-393) U/L Vital Signs Temperature 36 C L 07/28/19 03:31 Temperature Source Tympanic 07/28/19 03:31 Pulse 75 07/28/19 03:31 Pulse Rhythm Regular 07/28/19 02:53 Pulse 67 07/23/19 04:31 Respiratory Rate 18 07/28/19 03:31 Respiratory Effort Non-Labored 07/28/19 02:53 Respiratory Depth Normal 07/28/19 02:53 Respiratory Pattern Normal 07/28/19 02:53 Blood Pressure 177/83 H 07/28/19 03:31 Blood Pressure Mean 101 07/23/19 05:46 Blood Pressure Position Sitting 07/23/19 03:36 Pulse Oximetry 93 L 07/28/19 03:31 Respiratory End-tidal CO2 20 07/24/19 14:47 Oxygen Delivery Method Room Air 07/28/19 03:31 Oxygen Flow Rate 0 07/28/19 03:31 Pain Level 2 07/28/19 07:57 Comment 07/27/19 20:20 Intake & Output 07/27/19 07/28/19 07/28/19 18:59 06:59 18:59 Intake Total 876 / 986 110 / 986 Output Total 300 / 570 270 / 570 Balance 576 / 416 -160 / 416 Weight 96.8 kg Intake: IV 876 / 986 110 / 986 Injectate 0 / 0 Mid Anterior Medial Abdomen 0 / 0 Output: Drainage 20 / 20 Mid Anterior Medial Abdomen 20 / 20 Urine 300 / 550 250 / 550 Other: Urine Color Yellow Light Nadeen Urine Appearance Clear Clear Voiding Methods Urinal Urinal Laboratory Results WBC 6.90 k/cumm (4.4-10.8) 07/28/19 06:10 RBC 3.53 m/cumm (4.50-6.00) L 07/28/19 06:10 Hgb 9.9 g/dL (13.5-17.5) L 07/28/19 06:10 Hct 30.6 % (40.0-50.0) L 07/28/19 06:10 MCV 86.7 fL (80-95) 07/28/19 06:10 MCH 28.0 pg (27.0-33.0) 07/28/19 06:10 MCHC 32.4 g/dL (32.0-36.0) 07/28/19 06:10 RDW 20.9 % (11.8-14.1) H 07/28/19 06:10 Plt Count 189 x1000/uL (130-400) 07/28/19 06:10 MPV 10.1 fL (8.0-11.0) 07/28/19 06:10 Immature Gran % 0.1 07/28/19 06:10 Neutrophils % 79.5 07/28/19 06:10 Lymphocytes % 9.4 07/28/19 06:10 Monocytes % 10.0 07/28/19 06:10 Eosinophils % 0.9 07/28/19 06:10 Basophils % 0.1 07/28/19 06:10 Absolute Neutrophils 5.48 k/cumm (1.2-6.7) 07/28/19 06:10 Absolute Lymphocytes 0.65 k/cumm (1.2-3.4) L 07/28/19 06:10 Absolute Monocytes 0.69 k/cumm (0.11-0.7) 07/28/19 06:10 Absolute Eosinophils 0.06 k/cumm (0.0-0.7) 07/28/19 06:10 Absolute Basophils 0.01 k/cumm (0.0-0.2) 07/28/19 06:10 Differential Comment Rbc morph reviewed 07/25/19 06:20 RBC Morphology See below 07/25/19 06:20 Hypochromasia 1+ 07/25/19 06:20 Anisocytosis 2+ 07/25/19 06:20 Microcytosis 1+ 07/25/19 06:20 Sodium 139 mmol/L (136-145) 07/28/19 06:10 Potassium 3.9 mmol/L (3.5-5.1) 07/28/19 06:10 Chloride 103 mmol/L (98-107) 07/28/19 06:10 Carbon Dioxide 28.6 mmol/L (21.0-32.0) 07/28/19 06:10 Anion Gap 7.4 mmol/L (3-11) 07/28/19 06:10 BUN 16 mg/dL (7-18) 07/28/19 06:10 Creatinine 0.70 mg/dL (0.70-1.30) 07/28/19 06:10 Estimated GFR/1.73 m2 >= 60.00 (mL/min/1.73m2) 07/28/19 06:10 Glucose 152 mg/dL (74-106) H 07/28/19 06:10 Calcium 8.1 mg/dL (8.5-10.1) L 07/28/19 06:10 Magnesium 1.7 mg/dL (1.8-2.4) L 07/26/19 06:05 Total Bilirubin 1.7 mg/dL (0.2-1.0) H 07/28/19 06:10 Conjugated Bilirubin 0.45 mg/dL (0.00-0.20) H 07/26/19 06:05 AST 148 U/L (15-37) H 07/28/19 06:10 ALT 490 U/L (16-63) H 07/28/19 06:10 Alkaline Phosphatase 120 U/L (46-116) H 07/28/19 06:10 Troponin I < 0.05 ng/Ml (<0.06) 07/28/19 07:43 Total Protein 5.8 g/dL (6.4-8.2) L 07/28/19 06:10 Albumin 2.4 g/dL (3.4-5.0) L 07/28/19 06:10 Triglycerides 63 mg/dL (<150) 07/25/19 06:20 Total Cholesterol 111 mg/dL (<200) 07/25/19 06:20 LDL Cholesterol, Calc 53 mg/dL 07/25/19 06:20 HDL Cholesterol 46 mg/dL (40-60) 07/25/19 06:20 Amylase 15 U/L (25-115) L 07/28/19 06:10 Lipase 29 U/L (73-393) L 07/28/19 06:10 Urine Color Yellow (Yellow) 07/23/19 04:00 Urine Clarity Clear (Clear) 07/23/19 04:00 Urine pH 7.0 (5-8) 07/23/19 04:00 Ur Specific [place] 1.020 (1.005-1.025) 07/23/19 04:00 Urine Protein 30 mg/dL (Negative) H 07/23/19 04:00 Urine Ketones 15 mg/dL (Negative) H 07/23/19 04:00 Urine Blood Trace-intact (Negative) H 07/23/19 04:00 Urine Nitrite Negative (Negative) 07/23/19 04:00 Urine Bilirubin Negative (Negative) 07/23/19 04:00 Urine Urobilinogen 1.0 EU/dL (Up TO 0.2) H 07/23/19 04:00 Ur Leukocyte Esterase Negative (Negative) 07/23/19 04:00 Urine RBC 3-5 HPF (0-2) H 07/23/19 04:00 Urine WBC 0-2 HPF (0-5) 07/23/19 04:00 Ur Epithelial Cells Rare HPF (Negative) 07/23/19 04:00 Urine Crystals Negative HPF (Negative) 07/23/19 04:00 Urine Bacteria Rare HPF (Negative) 07/23/19 04:00 Urine Casts Negative LPF (Negative) 07/23/19 04:00 Urine Mucus Trace (Negative) 07/23/19 04:00 Ur Culture Indicated? No 07/23/19 04:00 Urine Glucose 100 mg/dL (Negative) 07/23/19 04:00
[2019-07-28] MEDS: Lisinopril 10 MG TAB PO (08:12)
[2019-07-28] MEDS: Sennosides/Docusate Sodium TAB 1 TAB PO ×2 (08:13→19:55)
[2019-07-28 08:43] LABS: Magnesium 2.8 mg/dL (1.8-2.4); NT-proBNP 691 pg/mL (<300)
--- NOTE | 2019-07-28 09:00 | DI.US_ITS ---
APPROVED REPORT EXAM: Comprehensive 2D, Doppler, and color-flow Echocardiogram Indications: pre-op Conclusion Left Ventricle : The left ventricle is normal size. Left ventricular systolic function is normal. Th ere is normal LV segmental wall motion. The posterior wall thickness is normal. The septal thickness is moderately increased. Diastolic function is indeterminate. LVEF is estimated to be 50-55%. Right Ventricle : Right ventricle is mildly dilated. The right ventricular systolic function is low n ormal. Atria : Left atrium is moderately dilated. Right atrium is moderately dilated. Aortic Valve : Aortic valve is trileaflet and mobile. The Aortic valve is sclerotic with focal thicke lul. There is no aortic valvular stenosis. Mild aortic regurgitation. Mitral Valve : Mitral valve leaflets are mildly thickened. Moderate mitral regurgitation No evidence of mitral valve stenosis. Tricuspid Valve : Tricuspid valve leaflets are thickened, but open well. Moderate tricuspid regurgita tion. Great Vessels : The IVC was not visualized. RVSP could not be estimated. There is no prior echocardiogram available for comparison. Wall motion Left Ventricle The left ventricle is normal size. Left ventricular systolic function is normal. The posterior wall t hickness is normal. The septal thickness is moderately increased. There is normal LV segmental wall m otion. Diastolic function is indeterminate. LVEF is estimated to be 50-55%. Right Ventricle Right ventricle is mildly dilated. The right ventricular systolic function is low normal. Atria Left atrium is moderately dilated. Right atrium is moderately dilated. Aortic Valve Aortic valve is trileaflet and mobile. The Aortic valve is sclerotic with focal thickening. There is no aortic valvular stenosis. Mild aortic regurgitation. Mitral Valve Mitral valve leaflets are mildly thickened. No evidence of mitral valve stenosis. Moderate mitral reg urgitation Tricuspid Valve Tricuspid valve leaflets are thickened, but open well. Moderate tricuspid regurgitation. Pulmonic Valve Pulmonic valve is not well visualized. Mild pulmonic regurgitation. Great Vessels Aortic root is dilated. The aortic root size is normal. The ascending aorta is mildly dilated. The IV C was not visualized. RVSP could not be estimated Pericardium There is no pericardial effusion. 2D Dimensions IVSd 1.50 cm M: 0.6-1.2 LV EDV A2C 111.00 mL PWd 1.00 cm M: 0.6 - 1.2 LV EDV A4C 112.90 mL LVDd 4.95 cm M: 4.2 - 5.8 LA Volume Index A2C 41.27 mL/m2 LVDs 3.50 cm M: 2.5 - 4.0 LA Volume Index A4C 57.31 mL/m2 Aortic Root 3.60 cm M: 3.1 - 3.7 LA Volume Index Biplane 52.26 mL/m2 RA Area A4C 25.38 cm2 LA Area A4C 30.44 cm2 LVOT 2.20 cm (M/F) 1.5-2.5 LA Area A2C 24.04 cm2 Ascending Aorta 3.70 cm M: 2.6 - 3.4 EF AP4 55.71 % LVEF (Teich) 54.73 % EF AP2 55.14 % LVEF (Pearson's) 52.51 % M: 52 - 72 EF BP 52.51 % LV Volume 82.34 mL M: 62 - 150 LV Volume Index 39.20 mL/m2 M: 34 - 74 FS 28.45 % LV Diastology E/A Ratio 0.7 MED E' 0.07 (>0.07 m/s) LV E/e MED 12.15 (<14) LAT E' 0.08 (>0.1 m/s) LV E/e LAT 10.50 (<14) Pulm Vein s 0.74 m/s PV S/D Ratio 1.51 Pulm Vein d 0.49 m/s Pulm Vein a 0.29 m/s Aortic Valve LVOT Area 3.90 cm2 LVOT Peak Neymar. 0.85 m/s LVOT Mean Neymar. 0.73 m/s LVOT Peak Gr. 3.00 mmHg ALMITA Vmax Index 0.96 cm2/m2 LVOT Mean Gr. 2.20 mmHg LVOT VTI 0.20 m ALMITA Mean Neymar. Index 1.08 cm2/m2 AoV Peak Neymar. 1.68 (0.5-1.3 m/s) AoV Mean Neymar. 1.26 m/s AO Peak GR. 11.27 mmHg AO Mean GR. 6.58 (<5 mmHg) VTI Ratio 0.64 ALMITA (VTI) 2.49 (2.5-4.5 cm2) ALMITA (VTI) Index 1.19 cm/m2 Mitral Valve MV E Max Neymar. 0.85 (0.4-1.3 m/s) MV A Velocity 1.15 (0.4-1.3 m/s) E/A Ratio 0.72 MV Decel. Time 171.95 (160-240 msec) MV Regurg Volume 46.35 mL MV PHT 49.87 msec MV RF 33.83 % MVA PHT 4.40 cm2 Pulmonary Valve MA End VMAX 109.39 cm/s Tricuspid Valve TR P. Velocity 2.84 m/s TV Regurg Vmax 2.84 m/s RAP Estimate 10.00 mmHg RVSP 42.00 mmHg TR P. Gradient 32.15 mmHg
--- NOTE | 2019-07-28 10:51 | NUR.NOTE ---
At approximately 07:30 this morning nursing was alerted that the patient was having chest pain. Nursing entered the room and vital signs were obtained 36.5, 71, 20 respirations, 191/91, and 96% on room air. An ECG was ordered and the MD was notified. The patient's blood sugar was taken and it was 151. At 07:40, a 0.4mg dose of nitro was ordered and administered, patient's blood pressure after dose was 138/80. Patient reported after first dose his chest pain had improved. Physician ordered a second dose of nitro which was administered at approximately 07:45. At this time the patient's pain was a 2/10 and his blood pressure was 146/74. Physician ordered a third dose of nitro which was administered at approximately 07:50, patient reported his chest pain as a 2/10 and his blood pressure was 148/75. 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 Nursing continued to monitor patient, who reported his pain was still a 2/10, but he felt better. Nursing noted patient was no longer diaphoretic. Physician ordered 2mg IV morphine and 325mg aspirin, which were administered at approximately 08:20. Troponins and an echo were ordered, awaiting results. Charge nurse aware, MD aware of events. Will continue to monitor patient. Nursing Note:
[2019-07-28 11:16] LABS: Troponin I < 0.05 ng/Ml (<0.06)
--- NOTE | 2019-07-28 11:42 | NUR.NOTE ---
Patient left for [facility] at approximately 11:40 am, pre-medicated with morphine, report was given to Barbie at [facility] gastroenterology. Nursing Note:
--- NOTE | 2019-07-28 16:51 | W.MEDCONSULT ---
Date of service: 07/28/19 Time of Service: 07:30 Assessment and Plan Assessment and plan (1) Chest pain: Status: Acute Assessment and plan: ACS ruled out - patient was medically cleared for procedure. Echo without wall motion abnormalities. EF 50-55%. Does not appear to have cardiomyopathy you can sometimes see with patients with hemochromatosis. However, based on reports of positive stress test in the past (at least, a stress test that had to be stopped early), this will require further investigation as outpatient - may require repeat stress test, for example. We will attempt to find out exactly where this stress test was. (2) Bile leak, postoperative: Status: Acute Assessment and plan: [place] [facility] defer to primary team. (3) Hemochromatosis: Status: Chronic Assessment and plan: Follow up as outpatient. Avoid blood transfusions unless absolutely necessary. (4) GERD (gastroesophageal reflux disease): Status: Chronic Assessment and plan: Continue PPI Hospitalists are signing off. Thank you for this consult - please, reconsult if needed. History of Present Illness History of Present Illness Chief Complaint: chest pain Narrative: Mr Watkins is a 78 year old male with PMHx of hemochromatosis, NIDDM2, HTN, GERD, who is receiving treatment on general surgical service post cholectectomy on 07/24/[address] Pizano, complicated by post-operative bile leak. This morning, at about 7:15, he started to report a crushing L-sided chest pain, accompanied by diaphoresis, belching, a sensation of shortness of breath and mild nausea. He stated that, by the time I saw him, his pain was already better. When given nitroglycerin, he thought it got better, but ultimately it responded best to a GI cocktail. 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 He shared with me that several years ago in [place] he had a stress test and that it had to be stopped early. He cannot tell me why. He does not recall ever having chest pain before, but per Dr Álvarez, he had a similar episode yesterday. He was hypertensive during both episodes. At the time that I saw the patient, he was awaiting a [id number] [facility] [place]biliary stent. Consults Consult date: 07/28/19 Requesting physician: Andria Álvarez Review of Systems Narrative: 12 systems reviewed. Pertinent positives and negatives are as per HPI. [facility] Medical History (Updated 07/28/19 @ 17:23 by Denise Godinez MD) Acute gangrenous cholecystitis (Acute) Bile leak, postoperative (Acute) Cholelithiasis with acute on chronic cholecystitis (Acute) Diabetes mellitus (Chronic) Gallstones without obstruction of gallbladder (Acute) GERD (gastroesophageal reflux disease) (Chronic) Glaucoma (Chronic) Hemochromatosis (Chronic) Positive cardiac stress test (Acute) Surgical History (Updated 07/25/19 @ 17:18 by Jewels Pizano DO) Previous back surgery (Acute) S/P laparoscopic cholecystectomy (Acute) Social History Smoking/Tobacco Use Status: Never Drug use: Never Do you feel safe at home: Yes Do you feel safe in your relationship?: Yes Exam Narrative Exam Narrative: General: Very pleasant, but anxious elderly male, forgetful, A&Ox3, laying in bed with a wet towel over his head Neurological: A&Ox3, no focal deficits Psychiatric: anxious Skin: visible skin intact HEENT: Atraumatic, normocephalic, EOMI, MMM, clear oropharynx, no submandibular or cervical lymphadenopathy, no goiter or JVD Cardiovascular: RRR, no m/r/g Lungs: CTAB Gastrointestinal: abdomen is soft, tender in epigastrium, +DIVYA drain - empty when I saw him Genitourinary: deferred Extremities: no e/c/c BLE's, 2+ pedal pulses B Results Last Vital Signs Temp 36.5 C 07/28/19 07:30 Pulse 85 07/28/19 07:55 Resp 20 07/28/19 07:30 BP 191/91 H 07/28/19 07:30 Pulse Ox 94 L 07/28/19 10:29 Labs Result diagrams: 07/28/19 06:10 07/28/19 06:10 Labs: Laboratory Results - last 24 hr 07/28/19 07/28/19 07/28/19 06:10 06:10 07:43 WBC 6.90 RBC 3.53 L Hgb 9.9 L Hct 30.6 L MCV 86.7 MCH 28.0 MCHC 32.4 RDW 20.9 H Plt Count 189 MPV 10.1 Immature Gran % 0.1 Neutrophils % 79.5 Lymphocytes % 9.4 Monocytes % 10.0 Eosinophils % 0.9 Basophils % 0.1 Absolute Neutrophils 5.48 Absolute Lymphocytes 0.65 L Absolute Monocytes 0.69 Absolute Eosinophils 0.06 Absolute Basophils 0.01 Sodium 139 Potassium 3.9 Chloride 103 Carbon Dioxide 28.6 Anion Gap 7.4 BUN 16 Creatinine 0.70 Estimated GFR/1.73 m2 >= 60.00 Glucose 152 H Calcium 8.1 L Magnesium 2.8 H Total Bilirubin 1.7 H AST 148 H ALT 490 H Alkaline Phosphatase 120 H Troponin I < 0.05 NT-Pro-B Natriuret Pep 691 Total Protein 5.8 L Albumin 2.4 L Amylase 15 L Lipase 29 L 07/28/19 07/28/19 07:43 10:27 WBC RBC Hgb Hct MCV MCH MCHC RDW Plt Count MPV Immature Gran % Neutrophils % Lymphocytes % Monocytes % Eosinophils % Basophils % Absolute Neutrophils Absolute Lymphocytes Absolute Monocytes Absolute Eosinophils Absolute Basophils Sodium Potassium Chloride Carbon Dioxide Anion Gap BUN Creatinine Estimated GFR/1.73 m2 Glucose Calcium Magnesium Total Bilirubin AST ALT Alkaline Phosphatase Troponin I < 0.05 NT-Pro-B Natriuret Pep Cancelled Total Protein Albumin Amylase Lipase Imaging Additional studies: EK: HR 70, 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 Left ventricular systolic function is normal. There is normal LV segmental wall motion. The posterior wall thickness is normal. The septal thickness is moderately increased. Diastolic function is indeterminate. LVEF is estimated to be 50-55%. Right Ventricle : Right ventricle is mildly dilated. The right ventricular systolic function is low normal. Atria : Left atrium is moderately dilated. Right atrium is moderately dilated. Aortic Valve : Aortic valve is trileaflet and mobile. The Aortic valve is sclerotic with focal thickening. There is no aortic valvular stenosis. Mild aortic regurgitation. Mitral Valve : Mitral valve leaflets are mildly thickened. Moderate mitral regurgitation No evidence of mitral valve stenosis. Tricuspid Valve : Tricuspid valve leaflets are thickened, but open well. Moderate tricuspid regurgitation. Great Vessels : The IVC was not visualized. RVSP could not be estimated. There is no prior echocardiogram available for comparison.
[2019-07-28] MEDS: Pantoprazole 40 MG VIAL IVP (18:13)
[2019-07-28] MEDS: levoFLOXacin 750 MG/150 ML BAG 100 MG IVPB (18:15)
[2019-07-28] MEDS: Metoclopramide 10 MG/2 ML VIAL IVP (18:21)
--- NOTE | 2019-07-28 18:46 | CMPROGNOTE_ITS ---
- If Service Date Differs Date of service: 07/28/19 Time of Service: 18:48 Care Management Progress Note S/O: CM was unable to meet with Jemal today as he was sent down and back [place] [facility] [place]Biliary Stent procedure. CM will continue to follow. A: Jemal is a 78 year old male admitted to [facility] on 07/23/2019 for right upper quadrant pain and cholelithiasis. P: Jemal will return home once medically cleared. His , Modesta will transport him via private vehicle when ready. Discharge planning requires presence due to Jemal experiencing some reported memory deficits. CM will continue to follow and support discharge planning considerations.
[2019-07-28] MEDS: Latanoprost 0.005% 2.5 ML BTL OP (21:06)
[2019-07-28] MEDS: traZODone 100 MG TAB PO (21:06)
[2019-07-28] MEDS: Normal Saline 1,000 ML 80 ML IV (21:16)
[2019-07-29] VITALS (12 sets, daily range): BP systolic 123–183; BP diastolic 62–85; PULSE 77–151; RESP 17–22; TEMP 36.4–36.9; O2SAT 94–100
[2019-07-29] MEDS: Metoclopramide 10 MG/2 ML VIAL IVP ×5 (00:29→23:33)
[2019-07-29] MEDS: ACETAMINOPHEN 1,000 MG/100 ML BTL 400 MG IVPB ×3 (01:57→18:07)
[2019-07-29 07:12] LABS: ALT 323 U/L (16-63); AST 91 U/L (15-37); Albumin 2.1 g/dL (3.4-5.0); Alkaline Phosphatase 112 U/L (46-116); Anion Gap 6.2 mmol/L (3-11); BUN 21 mg/dL (7-18); Bilirubin, Total 1.4 mg/dL (0.2-1.0); CO2 29.8 mmol/L (21.0-32.0); CREATININE 0.64 mg/dL (0.70-1.30); Calcium 7.7 mg/dL (8.5-10.1); Chloride 105 mmol/L (98-107); Glucose 127 mg/dL (74-106); Sodium 141 mmol/L (136-145); Total Protein 5.4 g/dL (6.4-8.2)
[2019-07-29 07:14] LABS: Amylase 942 U/L (25-115)
--- NOTE | 2019-07-29 07:23 | DI.RAD_ITS ---
EXAM: XR ABDOMEN FLAT UPRIGHT INDICATION: Nausea, vomiting COMPARISON: CT ABDOMEN PELVIS W from 07/23/2019 XR ABDOMEN FLAT PLATE from 07/27/2019 TECHNIQUE: 2D digital imaging was performed. FINDINGS: There is a question of a tiny right pleural effusion. Surgical clips and biliary drainage tube as w ell as stent is noted. The stent appears new when compared with the previous exam. Stool is seen on the right side of the colon. The remainder of the colon shows no significant stool. There is no sma ll bowel dilatation or abnormal colonic dilatation. IMPRESSION: Postsurgical findings in the right upper quadrant. No evidence of obstruction.
[2019-07-29 07:35] LABS: Lipase 8157 U/L (73-393)
[2019-07-29] MEDS: Milk of Magnesia 30 ML CUP PO (07:55)
[2019-07-29] MEDS: Lisinopril 10 MG TAB PO (07:55)
[2019-07-29] MEDS: Sennosides/Docusate Sodium TAB 1 TAB PO ×2 (07:55→20:05)
--- NOTE | 2019-07-29 08:05 | CMPROGNOTE_ITS ---
- If Service Date Differs Date of service: 07/29/19 Time of Service: 08:05 Care Management Progress Note S/O:Jemal is sitting up in the chair he is alert he states he still feels foggy but better. He is happy to have liquid diet in front of him and reports his pain has improved. No changes in plan today he remains acute. A: Jemal is a 78 year old male admitted to [facility] on 07/23/2019 for right upper quadrant pain and cholelithiasis.Status post lap jody, and ERCP at [facility] [place], Bile leak, postoperative, assessment and plan: s/p ercp and stent, stent will need to remove in 6-12 wks per provider. P: Jemal will be discharged home when medically ready per provider. Discharge planning requires presence due to Jemal experiencing some reported memory deficits. His , Modesta, will transport him home via private vehicle when ready. CM continues to follow.
[2019-07-29] MEDS: Normal Saline 1,000 ML 80 ML IV (08:41)
[2019-07-29] MEDS: Normal Saline Flush 10 ML SYR IVP ×4 (09:45→18:01)
[2019-07-29] MEDS: Ondansetron 4 MG/2 ML VIAL IVP (09:45)
--- NOTE | 2019-07-29 10:08 | W.PM.PROGNOT ---
Date of Service Date of service: 07/29/19 Time of Service: 10:08 Assessment and Plan Assessment and plan (1) Bile leak, postoperative: Status: Acute Assessment and plan: s/p ercp and stent. notes reviewed- prob cystic duct stump leak will need to removed in 6-12 wks (2) S/P laparoscopic cholecystectomy: Status: Acute Assessment and plan: stop abx cont supportive care dvt/gi proph lactobaccilus encourage walking still needs to have BM (3) Pancreatitis: Status: Chronic Assessment and plan: will treat w/ fluids and bowel rest cont to monitor labs Subjective Subjective Interval history since last seen: events from yesterday reviewed- including cheast pain (which i think is from distention from his bowels) and ERCP he has minimal output in DIVYA today no headaches. No CP or SOB. no productive cough. no dysuria. no leg pain or swelling. pt has not been able to void. bladder scan only shows 70cc. increased IV fluids. pt feels nauseated and bloated. He was NPO. He has low grade pancreatitis from the ERCP and stent. He was up walking today and throughout the night. Exam Const General: cooperative, healthy appearing, comfortable, no acute distress, well developed and well groomed Nutritional Appearance: average body habitus and well nourished Orientation: alert, awake and oriented x3 HENMT Head: normal to inspection, normocephalic and atraumatic Ears: hearing grossly normal bilaterally and external ears normal General nose exam: external nose normal Face and sinus: normal facial exam and sinuses nontender Mouth: oral mucosae normal, lip normal, tongue normal and moist mucous membranes Teeth and gingiva: dentition normal Eyes General: appearance normal, both eyes and all related structures Conjunctivae: conjunctivae normal Sclera: sclerae normal Pupils: PERRL Neck Neck: normal visual inspection and full ROM Chest Chest: normal inspection of the chest Resp Effort & Inspection: normal respiratory effort, able to speak in complete sentences, no cough, no nasal flaring, not tachypneic and no use of accessory muscles Auscultation: clear to auscultation bilaterally, no rales, no rhonchi and no wheezes Cardio Jugular venous pressure: no JVD Rate: regular rate Rhythm: regular rhythm GI Inspection: normal to inspection, no edema, distended and incision (c/d/i) Palpation: soft, no masses, tender and No ascites Auscultation: hypoactive bowel sounds Other: minimal output from drain. Skin General skin exam: no rashes or lesions noted Trauma: no lacerations or abrasions Neuro General: alert, oriented x3, oriented, gait normal, moves all extremities, no focal motor deficits and CN's II-XI intact bilaterally Cognition: normal cognition Speech: speech normal Gait: normal gait Motor: muscle tone normal throughout Extrem General: normal to inspection, full ROM and no clubbing, cyanosis or edema Psych Appearance: grossly normal and well kempt Mental Status: mental status grossly normal Speech and Movement: speech and movement normal Affect: normal affect Objective Objective Clinical Data: Abnormal lab results 07/29/19 07/29/19 Range/Units 06:33 06:33 BUN 21 H (7-18) mg/dL Creatinine 0.64 L (0.70-1.30) mg/dL Glucose 127 H (74-106) mg/dL Calcium 7.7 L (8.5-10.1) mg/dL Total Bilirubin 1.4 H (0.2-1.0) mg/dL AST 91 H (15-37) U/L ALT 323 H (16-63) U/L Total Protein 5.4 L (6.4-8.2) g/dL Albumin 2.1 L (3.4-5.0) g/dL Amylase 942 H (25-115) U/L Lipase 8157 H (73-393) U/L Vital Signs Temperature 36.7 C 07/29/19 07:39 Temperature Source Tympanic 07/29/19 07:39 Pulse 92 H 07/29/19 07:39 Pulse Rhythm Regular 07/29/19 00:50 Pulse 67 07/23/19 04:31 Respiratory Rate 17 07/29/19 07:39 Respiratory Effort Non-Labored 07/29/19 00:50 Respiratory Depth Normal 07/29/19 00:50 Respiratory Pattern Normal 07/29/19 00:50 Blood Pressure 123/74 07/29/19 07:39 Blood Pressure Mean 101 07/23/19 05:46 Blood Pressure Position Sitting 07/23/19 03:36 Pulse Oximetry 100 07/29/19 07:39 Respiratory End-tidal CO2 20 07/24/19 14:47 Oxygen Delivery Method Room Air 07/29/19 07:39 Oxygen Flow Rate 0 12/04/19 07:39 Pain Level 3 07/29/19 09:19 Comment 07/27/19 20:20 Intake & Output 07/28/19 07/28/19 07/29/19 11:59 23:59 11:59 Intake Total 0 / 1001 1001 / 1001 1023.333 / 1023.333 Output Total 270 / 1020 750 / 1020 325 / 325 Balance -270 / -19 251 / -19 698.333 / 698.333 Intake: IV 1001 / 1001 1023.333 / 1023.333 Injectate 0 / 0 Mid Anterior Medial Abdomen 0 / 0 Output: Drainage 20 / 420 400 / 420 75 / 75 Mid Anterior Medial Abdomen 20 / 420 400 / 420 75 / 75 Urine 250 / 600 350 / 600 250 / 250 Other: Urine Color Light Nadeen Dark Nadeen Dark Nadeen Urine Appearance Clear Clear Clear Urine Odor Strong Normal Comment incontinent while walking Stool Size Small Stool Characteristics Formed Hard Brown Voiding Methods Urinal Urinal Urinal Laboratory Results WBC 6.90 k/cumm (4.4-10.8) 07/28/19 06:10 RBC 3.53 m/cumm (4.50-6.00) L 07/28/19 06:10 Hgb 9.9 g/dL (13.5-17.5) L 07/28/19 06:10 Hct 30.6 % (40.0-50.0) L 07/28/19 06:10 MCV 86.7 fL (80-95) 07/28/19 06:10 MCH 28.0 pg (27.0-33.0) 07/28/19 06:10 MCHC 32.4 g/dL (32.0-36.0) 07/28/19 06:10 RDW 20.9 % (11.8-14.1) H 07/28/19 06:10 Plt Count 189 x1000/uL (130-400) 07/28/19 06:10 MPV 10.1 fL (8.0-11.0) 07/28/19 06:10 Immature Gran % 0.1 07/28/19 06:10 Neutrophils % 79.5 07/28/19 06:10 Lymphocytes % 9.4 07/28/19 06:10 Monocytes % 10.0 07/28/19 06:10 Eosinophils % 0.9 07/28/19 06:10 Basophils % 0.1 07/28/19 06:10 Absolute Neutrophils 5.48 k/cumm (1.2-6.7) 07/28/19 06:10 Absolute Lymphocytes 0.65 k/cumm (1.2-3.4) L 07/28/19 06:10 Absolute Monocytes 0.69 k/cumm (0.11-0.7) 07/28/19 06:10 Absolute Eosinophils 0.06 k/cumm (0.0-0.7) 07/28/19 06:10 Absolute Basophils 0.01 k/cumm (0.0-0.2) 07/28/19 06:10 Differential Comment Rbc morph reviewed 07/25/19 06:20 RBC Morphology See below 07/25/19 06:20 Hypochromasia 1+ 07/25/19 06:20 Anisocytosis 2+ 07/25/19 06:20 Microcytosis 1+ 07/25/19 06:20 Sodium 141 mmol/L (136-145) 07/29/19 06:33 Potassium 4.0 mmol/L (3.5-5.1) 07/29/19 06:33 Chloride 105 mmol/L (98-107) 07/29/19 06:33 Carbon Dioxide 29.8 mmol/L (21.0-32.0) 07/29/19 06:33 Anion Gap 6.2 mmol/L (3-11) 07/29/19 06:33 BUN 21 mg/dL (7-18) H 07/29/19 06:33 Creatinine 0.64 mg/dL (0.70-1.30) L 07/29/19 06:33 Estimated GFR/1.73 m2 >= 60.00 (mL/min/1.73m2) 07/29/19 06:33 Glucose 127 mg/dL (74-106) H 07/29/19 06:33 Calcium 7.7 mg/dL (8.5-10.1) L 07/29/19 06:33 Magnesium 2.8 mg/dL (1.8-2.4) H 07/28/19 07:43 Total Bilirubin 1.4 mg/dL (0.2-1.0) H 07/29/19 06:33 Conjugated Bilirubin 0.45 mg/dL (0.00-0.20) H 07/26/19 06:05 AST 91 U/L (15-37) H 07/29/19 06:33 ALT 323 U/L (16-63) H 07/29/19 06:33 Alkaline Phosphatase 112 U/L (46-116) 07/29/19 06:33 Troponin I < 0.05 ng/Ml (<0.06) 07/28/19 10:27 NT-Pro-B Natriuret Pep 691 pg/mL (<300) 07/28/19 07:43 NT-Pro-B Natriuret Pep Cancelled 07/28/19 07:43 Total Protein 5.4 g/dL (6.4-8.2) L 07/29/19 06:33 Albumin 2.1 g/dL (3.4-5.0) L 07/29/19 06:33 Triglycerides 63 mg/dL (<150) 07/25/19 06:20 Total Cholesterol 111 mg/dL (<200) 07/25/19 06:20 LDL Cholesterol, Calc 53 mg/dL 07/25/19 06:20 HDL Cholesterol 46 mg/dL (40-60) 07/25/19 06:20 Amylase 942 U/L (25-115) H 07/29/19 06:33 Lipase 8157 U/L (73-393) H 07/29/19 06:33 Urine Color Yellow (Yellow) 07/23/19 04:00 Urine Clarity Clear (Clear) 07/23/19 04:00 Urine pH 7.0 (5-8) 07/23/19 04:00 Ur Specific [place] 1.020 (1.005-1.025) 07/23/19 04:00 Urine Protein 30 mg/dL (Negative) H 07/23/19 04:00 Urine Ketones 15 mg/dL (Negative) H 07/23/19 04:00 Urine Blood Trace-intact (Negative) H 07/23/19 04:00 Urine Nitrite Negative (Negative) 07/23/19 04:00 Urine Bilirubin Negative (Negative) 07/23/19 04:00 Urine Urobilinogen 1.0 EU/dL (Up TO 0.2) H 07/23/19 04:00 Ur Leukocyte Esterase Negative (Negative) 07/23/19 04:00 Urine RBC 3-5 HPF (0-2) H 07/23/19 04:00 Urine WBC 0-2 HPF (0-5) 07/23/19 04:00 Ur Epithelial Cells Rare HPF (Negative) 07/23/19 04:00 Urine Crystals Negative HPF (Negative) 07/23/19 04:00 Urine Bacteria Rare HPF (Negative) 07/23/19 04:00 Urine Casts Negative LPF (Negative) 07/23/19 04:00 Urine Mucus Trace (Negative) 07/23/19 04:00 Ur Culture Indicated? No 07/23/19 04:00 Urine Glucose 100 mg/dL (Negative) 07/23/19 04:00
[2019-07-29] MEDS: Lactated Ringers 1,000 ML 125 ML IV ×2 (10:22→20:04)
[2019-07-29] MEDS: Enoxaparin 40 MG/0.4 ML SYR SC (10:25)
[2019-07-29] MEDS: Methylnaltrexone 12 MG/0.6 ML VIAL SC (10:26)
[2019-07-29] MEDS: Insulin Aspart 300 UNITS/3 ML PEN SC ×2 (12:22→17:59)
[2019-07-29] MEDS: Lactobacillus Acidophilus CAP 1 CAP PO ×2 (13:25→20:05)
--- NOTE | 2019-07-29 14:22 | CHAPLAIN ---
Jemal was sitting up in a chair when I visited. He said he is beginning to feel better, and like he has turned a corner. The other day, I wishing it would go the other way, he said, explaining that he has been very uncomfortable up until now. He shared some personal history. Jemal expects his to be in later today to visit.
[2019-07-29] MEDS: Pantoprazole 40 MG VIAL IVP (18:01)
--- NOTE | 2019-07-29 18:22 | W.PM.PROGNOT ---
Date of Service Date of service: 07/29/19 Time of Service: 18:22 Assessment and Plan Assessment and plan (1) Nonsustained paroxysmal supraventricular tachycardia: Status: Acute Assessment and plan: at this time, given acute illness, I am not sure that this is truly anything to be alarmed about. Consider adding metoprolol to the regimen. I will write for prn metoprolol tonight. Agree with checking troponins and EKG. Check TFTs (2) Pancreatitis: Status: Chronic Assessment and plan: Post-ERCP - defer to primary team (3) Bile leak, postoperative: Status: Acute Assessment and plan: S/p ERCP/stent - as above (4) Chest pain: Status: Resolved Assessment and plan: Likely non-cardiac in origin and due to GI causes. In fact, the patient did not have a positive stress test - his corrected the information and stated he had a normal stress test 25 years ago or so and that his EKG's have always been normal. I do not believe that further workup is necessary. Subjective Subjective Interval history since last seen: Mack had a short run of SVT, asymptomatic, while sitting in a chair. Resolved on its own. There is a question of whether he was bearing down when it happened. Patient was seen while walking around today - he denied dizziness, chest pain, shortness of breath. Continues to report abdominal pain and a little bit of nausea, but states he generally feels a lot better today than he did yesterday. He is s/p ERCP/stent placement yesterday and found to have post-ERCP pancreatitis today. VS do show some tachycardia and hypertension - ?related to pain Exam Narrative Exam Narrative: Patient's exam was abreviated - he was walking in the hallway, so he was not auscultated. He did look tired, A&OX3, forgetful. EOMI, MMM. Breathing was nonlabored. Abdomen appeared distended; DIVYA drain was hanging from the gown - bulb mostly empty. No edema seen. Objective Objective Clinical Data: Abnormal lab results 07/29/19 07/29/19 Range/Units 06:33 06:33 BUN 21 H (7-18) mg/dL Creatinine 0.64 L (0.70-1.30) mg/dL Glucose 127 H (74-106) mg/dL Calcium 7.7 L (8.5-10.1) mg/dL Total Bilirubin 1.4 H (0.2-1.0) mg/dL AST 91 H (15-37) U/L ALT 323 H (16-63) U/L Total Protein 5.4 L (6.4-8.2) g/dL Albumin 2.1 L (3.4-5.0) g/dL Amylase 942 H (25-115) U/L Lipase 8157 H (73-393) U/L Vital Signs Temperature 36.7 C 07/29/19 15:39 Temperature Source Tympanic 07/29/19 15:39 Pulse 116 H 07/29/19 15:40 Pulse Rhythm Regular 07/29/19 16:35 Pulse 67 07/23/19 04:31 Respiratory Rate 18 07/29/19 15:39 Respiratory Effort Non-Labored 07/29/19 16:35 Respiratory Depth Normal 07/29/19 16:35 Respiratory Pattern Normal 07/29/19 16:35 Blood Pressure 177/73 H 07/29/19 15:39 Blood Pressure Mean 101 07/23/19 05:46 Blood Pressure Position Sitting 07/23/19 03:36 Pulse Oximetry 96 07/29/19 15:39 Respiratory End-tidal CO2 20 07/24/19 14:47 Oxygen Delivery Method Room Air 07/29/19 15:39 Oxygen Flow Rate 0 07/29/19 15:39 Pain Level 3 07/29/19 18:07 Comment 07/27/19 20:20 Intake & Output 07/28/19 07/29/19 07/29/19 23:59 11:59 23:59 Intake Total 1001 / 1001 1375.333 / 2424.916 1049.583 / 2424.916 Output Total 750 / 1020 350 / 350 Balance 251 / -19 1025.333 / 2074.916 1049.583 / 2074.916 Intake: IV 1001 / 1001 1255.333 / 1644.916 389.583 / 1644.916 Oral 120 / 780 660 / 780 Output: Drainage 400 / 420 100 / 100 Mid Anterior Medial Abdomen 400 / 420 100 / 100 Urine 350 / 600 250 / 250 Other: Urine Color Dark Nadeen Light Nadeen Urine Appearance Clear Clear Clear Urine Odor Strong Normal Comment pt voided in the toilet Stool Size Small Stool Characteristics Formed Hard Brown Voiding Methods Urinal Toilet Laboratory Results WBC 6.90 k/cumm (4.4-10.8) 07/28/19 06:10 RBC 3.53 m/cumm (4.50-6.00) L 07/28/19 06:10 Hgb 9.9 g/dL (13.5-17.5) L 07/28/19 06:10 Hct 30.6 % (40.0-50.0) L 07/28/19 06:10 MCV 86.7 fL (80-95) 07/28/19 06:10 MCH 28.0 pg (27.0-33.0) 07/28/19 06:10 MCHC 32.4 g/dL (32.0-36.0) 07/28/19 06:10 RDW 20.9 % (11.8-14.1) H 07/28/19 06:10 Plt Count 189 x1000/uL (130-400) 07/28/19 06:10 MPV 10.1 fL (8.0-11.0) 07/28/19 06:10 Immature Gran % 0.1 07/28/19 06:10 Neutrophils % 79.5 07/28/19 06:10 Lymphocytes % 9.4 07/28/19 06:10 Monocytes % 10.0 07/28/19 06:10 Eosinophils % 0.9 07/28/19 06:10 Basophils % 0.1 07/28/19 06:10 Absolute Neutrophils 5.48 k/cumm (1.2-6.7) 07/28/19 06:10 Absolute Lymphocytes 0.65 k/cumm (1.2-3.4) L 07/28/19 06:10 Absolute Monocytes 0.69 k/cumm (0.11-0.7) 07/28/19 06:10 Absolute Eosinophils 0.06 k/cumm (0.0-0.7) 07/28/19 06:10 Absolute Basophils 0.01 k/cumm (0.0-0.2) 07/28/19 06:10 Differential Comment Rbc morph reviewed 07/25/19 06:20 RBC Morphology See below 07/25/19 06:20 Hypochromasia 1+ 07/25/19 06:20 Anisocytosis 2+ 07/25/19 06:20 Microcytosis 1+ 07/25/19 06:20 Sodium 141 mmol/L (136-145) 07/29/19 06:33 Potassium 4.0 mmol/L (3.5-5.1) 07/29/19 06:33 Chloride 105 mmol/L (98-107) 07/29/19 06:33 Carbon Dioxide 29.8 mmol/L (21.0-32.0) 07/29/19 06:33 Anion Gap 6.2 mmol/L (3-11) 07/29/19 06:33 BUN 21 mg/dL (7-18) H 07/29/19 06:33 Creatinine 0.64 mg/dL (0.70-1.30) L 07/29/19 06:33 Estimated GFR/1.73 m2 >= 60.00 (mL/min/1.73m2) 07/29/19 06:33 Glucose 127 mg/dL (74-106) H 07/29/19 06:33 Calcium 7.7 mg/dL (8.5-10.1) L 07/29/19 06:33 Magnesium 2.8 mg/dL (1.8-2.4) H 07/28/19 07:43 Total Bilirubin 1.4 mg/dL (0.2-1.0) H 07/29/19 06:33 Conjugated Bilirubin 0.45 mg/dL (0.00-0.20) H 07/26/19 06:05 AST 91 U/L (15-37) H 07/29/19 06:33 ALT 323 U/L (16-63) H 07/29/19 06:33 Alkaline Phosphatase 112 U/L (46-116) 07/29/19 06:33 Troponin I < 0.05 ng/Ml (<0.06) 07/28/19 10:27 NT-Pro-B Natriuret Pep 691 pg/mL (<300) 07/28/19 07:43 NT-Pro-B Natriuret Pep Cancelled 07/28/19 07:43 Total Protein 5.4 g/dL (6.4-8.2) L 07/29/19 06:33 Albumin 2.1 g/dL (3.4-5.0) L 07/29/19 06:33 Triglycerides 63 mg/dL (<150) 07/25/19 06:20 Total Cholesterol 111 mg/dL (<200) 07/25/19 06:20 LDL Cholesterol, Calc 53 mg/dL 07/25/19 06:20 HDL Cholesterol 46 mg/dL (40-60) 07/25/19 06:20 Amylase 942 U/L (25-115) H 07/29/19 06:33 Lipase 8157 U/L (73-393) H 07/29/19 06:33 Urine Color Yellow (Yellow) 07/23/19 04:00 Urine Clarity Clear (Clear) 07/23/19 04:00 Urine pH 7.0 (5-8) 07/23/19 04:00 Ur Specific [place] 1.020 (1.005-1.025) 07/23/19 04:00 Urine Protein 30 mg/dL (Negative) H 07/23/19 04:00 Urine Ketones 15 mg/dL (Negative) H 07/23/19 04:00 Urine Blood Trace-intact (Negative) H 07/23/19 04:00 Urine Nitrite Negative (Negative) 07/23/19 04:00 Urine Bilirubin Negative (Negative) 07/23/19 04:00 Urine Urobilinogen 1.0 EU/dL (Up TO 0.2) H 07/23/19 04:00 Ur Leukocyte Esterase Negative (Negative) 07/23/19 04:00 Urine RBC 3-5 HPF (0-2) H 07/23/19 04:00 Urine WBC 0-2 HPF (0-5) 07/23/19 04:00 Ur Epithelial Cells Rare HPF (Negative) 07/23/19 04:00 Urine Crystals Negative HPF (Negative) 07/23/19 04:00 Urine Bacteria Rare HPF (Negative) 07/23/19 04:00 Urine Casts Negative LPF (Negative) 07/23/19 04:00 Urine Mucus Trace (Negative) 07/23/19 04:00 Ur Culture Indicated? No 07/23/19 04:00 Urine Glucose 100 mg/dL (Negative) 07/23/19 04:00
[2019-07-29 19:36] LABS: Anion Gap 6.1 mmol/L (3-11); BUN 24 mg/dL (7-18); CO2 28.9 mmol/L (21.0-32.0); CREATININE 0.75 mg/dL (0.70-1.30); Calcium 7.9 mg/dL (8.5-10.1); Chloride 104 mmol/L (98-107); FREE T4 1.34 ng/dL (0.76-1.46); Glucose 145 mg/dL (74-106); Magnesium 2.5 mg/dL (1.8-2.4); Sodium 139 mmol/L (136-145); TSH 2.36 uIU/mL (0.36-3.74)
[2019-07-29 19:39] LABS: Troponin I < 0.05 ng/Ml (<0.06)
[2019-07-29] MEDS: Cyclobenzaprine 10 MG TAB PO (21:00)
--- NOTE | 2019-07-29 21:05 | W.PM.PROGNOT ---
Date of Service Date of service: 07/29/19 Time of Service: 21:05 Assessment and Plan Assessment and plan (1) Nonsustained paroxysmal supraventricular tachycardia: Status: Acute Assessment and plan: Patient is on telemetry. BMP troponin and TSH were normal. No change in EKG status. He is on a proton pump inhibitor inhibitor. He is off of antibiotics. There is minimal from the drain. Continue conservative medical management. No signs of acute cardiac problem. We will continue to monitor with serial troponins and keep him on telemetry. Electrolytes are stable. No signs of DVT/PE. Continue supportive care for the pancreatitis and hopefully this resolve in 1 to 2 days the patient can go home. He is off of antibiotics at this point. Continues with postop ileus/obstipation from narcotics-continue supportive care. (2) Pancreatitis: Status: Chronic (3) S/P laparoscopic cholecystectomy: Status: Acute (4) Chronic back pain: Status: Acute Subjective Subjective Interval history since last seen: Patient had an episode of SVT at around 5:00 this evening. He was asymptomatic during the V. tach. It was captured on telemetry. At this point he has no chest pain or shortness of breath. He is not coughing up any sputum. He is been afebrile. He complains of mostly back pain and abdominal pain. He has had a lot of gas and bloating and pain stool. Whether this is from his pancreatitis or from an ileus. He does not appear to have a bowel obstruction. He has been able to urinate and has no dysuria. He has no calf pain or swelling. His sats have been good on room air. He has been up walking. He is only been he has been tolerating sips of clears. EKG was reviewed and shows no changes from the EKG on 12 3 or the EKG on 1128. Labs and troponins done at 6:00 tonight were normal. He will have another troponin at 1 AM. He has main complaint is back pain and not being able to sleep in the hospital but. He has had minimal output from the DIVYA drain In the past 24 hours Exam Narrative Exam Narrative: HEENT is unremarkable. He has no pain with swallowing. There is no thrush on his tongue. He has no sinus pain. He has no eye pain swelling or jaundice. He has no dental pain. He has no jaw pain. Lungs: Clear to auscultation bilaterally Heart: Regular rate and rhythm. Currently in sinus rhythm. Abdomen: Distended, hypoactive bowel sounds, diffusely tender. Minimal fluid from DIVYA drain. Lower extremities no edema calf pain redness or swelling. Objective Objective Clinical Data: Abnormal lab results 07/29/19 07/29/19 07/29/19 Range/Units 06:33 06:33 19:05 BUN 21 H 24 H (7-18) mg/dL Creatinine 0.64 L (0.70-1.30) mg/dL Glucose 127 H 145 H (74-106) mg/dL Calcium 7.7 L 7.9 L (8.5-10.1) mg/dL Magnesium 2.5 H (1.8-2.4) mg/dL Total Bilirubin 1.4 H (0.2-1.0) mg/dL AST 91 H (15-37) U/L ALT 323 H (16-63) U/L Total Protein 5.4 L (6.4-8.2) g/dL Albumin 2.1 L (3.4-5.0) g/dL Amylase 942 H (25-115) U/L Lipase 8157 H (73-393) U/L Vital Signs Temperature 36.4 C L 07/29/19 20:52 Temperature Source Tympanic 07/29/19 20:52 Pulse 89 07/29/19 20:52 Pulse Rhythm Regular 07/29/19 16:35 Pulse 67 07/23/19 04:31 Respiratory Rate 18 07/29/19 20:52 Respiratory Effort Non-Labored 07/29/19 16:35 Respiratory Depth Normal 07/29/19 16:35 Respiratory Pattern Normal 07/29/19 16:35 Blood Pressure 168/85 H 07/29/19 20:52 Blood Pressure Mean 101 07/23/19 05:46 Blood Pressure Position Sitting 07/23/19 03:36 Pulse Oximetry 95 07/29/19 20:52 Respiratory End-tidal CO2 20 07/24/19 14:47 Oxygen Delivery Method Room Air 07/29/19 20:52 Oxygen Flow Rate 0 07/29/19 20:52 Pain Level 0 07/29/19 20:52 Comment 07/27/19 20:20 Intake & Output 07/28/19 07/29/19 07/29/19 23:59 11:59 23:59 Intake Total 1001 / 1001 1375.333 / 3445.333 2070.000 / 3445.333 Output Total 750 / 1020 350 / 350 Balance 251 / -19 1025.333 / 3095.333 2070.000 / 3095.333 Intake: IV 1001 / 1001 1255.333 / 2255.333 1000.000 / 2255.333 Oral 120 / 1190 1070 / 1190 Output: Drainage 400 / 420 100 / 100 Mid Anterior Medial Abdomen 400 / 420 100 / 100 Urine 350 / 600 250 / 250 Other: Urine Color Dark Nadeen Light Nadeen Yellow Urine Appearance Clear Clear Clear Urine Odor Strong Normal Comment pt voided in the toilet Stool Size Small Stool Characteristics Formed Hard Brown Voiding Methods Urinal Toilet Toilet Laboratory Results WBC 6.90 k/cumm (4.4-10.8) 07/28/19 06:10 RBC 3.53 m/cumm (4.50-6.00) L 07/28/19 06:10 Hgb 9.9 g/dL (13.5-17.5) L 07/28/19 06:10 Hct 30.6 % (40.0-50.0) L 07/28/19 06:10 MCV 86.7 fL (80-95) 07/28/19 06:10 MCH 28.0 pg (27.0-33.0) 07/28/19 06:10 MCHC 32.4 g/dL (32.0-36.0) 07/28/19 06:10 RDW 20.9 % (11.8-14.1) H 07/28/19 06:10 Plt Count 189 x1000/uL (130-400) 07/28/19 06:10 MPV 10.1 fL (8.0-11.0) 07/28/19 06:10 Immature Gran % 0.1 07/28/19 06:10 Neutrophils % 79.5 07/28/19 06:10 Lymphocytes % 9.4 07/28/19 06:10 Monocytes % 10.0 07/28/19 06:10 Eosinophils % 0.9 07/28/19 06:10 Basophils % 0.1 07/28/19 06:10 Absolute Neutrophils 5.48 k/cumm (1.2-6.7) 07/28/19 06:10 Absolute Lymphocytes 0.65 k/cumm (1.2-3.4) L 07/28/19 06:10 Absolute Monocytes 0.69 k/cumm (0.11-0.7) 07/28/19 06:10 Absolute Eosinophils 0.06 k/cumm (0.0-0.7) 07/28/19 06:10 Absolute Basophils 0.01 k/cumm (0.0-0.2) 07/28/19 06:10 Differential Comment Rbc morph reviewed 07/25/19 06:20 RBC Morphology See below 07/25/19 06:20 Hypochromasia 1+ 07/25/19 06:20 Anisocytosis 2+ 07/25/19 06:20 Microcytosis 1+ 07/25/19 06:20 Sodium 139 mmol/L (136-145) 07/29/19 19:05 Potassium 4.0 mmol/L (3.5-5.1) 07/29/19 19:05 Chloride 104 mmol/L (98-107) 07/29/19 19:05 Carbon Dioxide 28.9 mmol/L (21.0-32.0) 07/29/19 19:05 Anion Gap 6.1 mmol/L (3-11) 07/29/19 19:05 BUN 24 mg/dL (7-18) H 07/29/19 19:05 Creatinine 0.75 mg/dL (0.70-1.30) 07/29/19 19:05 Estimated GFR/1.73 m2 >= 60.00 (mL/min/1.73m2) 07/29/19 19:05 Glucose 145 mg/dL (74-106) H 07/29/19 19:05 Calcium 7.9 mg/dL (8.5-10.1) L 07/29/19 19:05 Magnesium 2.5 mg/dL (1.8-2.4) H 07/29/19 19:05 Total Bilirubin 1.4 mg/dL (0.2-1.0) H 07/29/19 06:33 Conjugated Bilirubin 0.45 mg/dL (0.00-0.20) H 07/26/19 06:05 AST 91 U/L (15-37) H 07/29/19 06:33 ALT 323 U/L (16-63) H 07/29/19 06:33 Alkaline Phosphatase 112 U/L (46-116) 07/29/19 06:33 Troponin I < 0.05 ng/Ml (<0.06) 07/29/19 19:05 NT-Pro-B Natriuret Pep 691 pg/mL (<300) 07/28/19 07:43 NT-Pro-B Natriuret Pep Cancelled 07/28/19 07:43 Total Protein 5.4 g/dL (6.4-8.2) L 07/29/19 06:33 Albumin 2.1 g/dL (3.4-5.0) L 07/29/19 06:33 Triglycerides 63 mg/dL (<150) 07/25/19 06:20 Total Cholesterol 111 mg/dL (<200) 07/25/19 06:20 LDL Cholesterol, Calc 53 mg/dL 07/25/19 06:20 HDL Cholesterol 46 mg/dL (40-60) 07/25/19 06:20 Amylase 942 U/L (25-115) H 07/29/19 06:33 Lipase 8157 U/L (73-393) H 07/29/19 06:33 TSH 2.36 uIU/mL (0.36-3.74) 07/29/19 19:05 Free T4 1.34 ng/dL (0.76-1.46) 07/29/19 19:05 Urine Color Yellow (Yellow) 07/23/19 04:00 Urine Clarity Clear (Clear) 07/23/19 04:00 Urine pH 7.0 (5-8) 07/23/19 04:00 Ur Specific [place] 1.020 (1.005-1.025) 07/23/19 04:00 Urine Protein 30 mg/dL (Negative) H 07/23/19 04:00 Urine Ketones 15 mg/dL (Negative) H 07/23/19 04:00 Urine Blood Trace-intact (Negative) H 07/23/19 04:00 Urine Nitrite Negative (Negative) 07/23/19 04:00 Urine Bilirubin Negative (Negative) 07/23/19 04:00 Urine Urobilinogen 1.0 EU/dL (Up TO 0.2) H 07/23/19 04:00 Ur Leukocyte Esterase Negative (Negative) 07/23/19 04:00 Urine RBC 3-5 HPF (0-2) H 07/23/19 04:00 Urine WBC 0-2 HPF (0-5) 07/23/19 04:00 Ur Epithelial Cells Rare HPF (Negative) 07/23/19 04:00 Urine Crystals Negative HPF (Negative) 07/23/19 04:00 Urine Bacteria Rare HPF (Negative) 07/23/19 04:00 Urine Casts Negative LPF (Negative) 07/23/19 04:00 Urine Mucus Trace (Negative) 07/23/19 04:00 Ur Culture Indicated? No 07/23/19 04:00 Urine Glucose 100 mg/dL (Negative) 07/23/19 04:00
[2019-07-29] MEDS: traZODone 100 MG TAB PO (22:48)
[2019-07-29] MEDS: Latanoprost 0.005% 2.5 ML BTL OP (22:48)
[2019-07-30] VITALS (14 sets, daily range): BP systolic 133–184; BP diastolic 68–78; PULSE 71–176; RESP 16–18; TEMP 36.5–37.5; O2SAT 94–97
[2019-07-30 01:31] LABS: Troponin I < 0.05 ng/Ml (<0.06)
[2019-07-30] MEDS: ACETAMINOPHEN 1,000 MG/100 ML BTL 400 MG IVPB ×3 (02:35→17:31)
[2019-07-30] MEDS: Lactated Ringers 1,000 ML 125 ML IV (04:00)
[2019-07-30] MEDS: Omnipaque 350 MG/ML 100 ML BTL IJ (05:26)
--- NOTE | 2019-07-30 05:29 | DI.CT_ITS ---
EXAM: CT CHEST PE CTA CLINICAL HISTORY: tachycardia, chest pain TECHNIQUE: 100 cc Omnipaque 350 IV. Exam is limited by lack of adequate IV access requiring reducti on in flow rate. Axial CT angiography was performed with multi-slice acquisition and multi-planar and/or 3D reconstruc tions. COMPARISON: No exams were available for comparison FINDINGS: The pulmonary arteries are suboptimally opacified with IV contrast. There are no central pulmonary emboli. Emboli in small branch vessels cannot be excluded. There is a tiny right pleural effusion. There is minimal basilar atelectasis. There is a small hiatal hernia. There is no evidence of aort ic dissection. No focal infiltrate or pneumothorax is seen. There are no thoracic compression fract ures. Degenerative changes are seen in the spine. Free air is noted beneath the diaphragm. There i s a collection in the gallbladder fossa as well as biliary drain and multiple surgical clips. This a anjelica is not fully included on the exam. There is an apparent fluid collection beneath the gallbladder fossa measuring 6 cm in diameter. IMPRESSION: Mildly limited exam due to suboptimal pulmonary artery opacification. Small branch emboli cannot be excluded. No large emboli are identified.
[2019-07-30] MEDS: Metoclopramide 10 MG/2 ML VIAL IVP ×4 (05:50→23:39)
--- NOTE | 2019-07-30 06:20 | DI.VRAD_ITS ---
PROCEDURE INFORMATION: Exam: CT Angiography Chest With Contrast Exam date and time: 07/30/2019 3:58 AM Age: 78 years old Clinical history: Other: Tachycardia, chest pain; Prior surgery; Surgery date: 3-7 days post-operative; Surgery type: Lap jody 07/25/2019 TECHNIQUE: Imaging protocol: Computed tomographic angiography of the chest with intravenous contrast. 3D rendering: MIP reconstructed images were created and reviewed. Radiation optimization: All CT scans at this facility use at least one of these dose optimization techniques: automated exposure control; mA and/or kV adjustment per patient size (includes targeted exams where dose is matched to clinical indication); or iterative reconstruction. Contrast material: [id number]; Contrast volume: 100 ml; Contrast route: IV RT HAND 20G; COMPARISON: No relevant prior studies available. FINDINGS: Pulmonary arteries: The pulmonary arteries are suboptimally opacified to assess for PE, however no obvious central PE is evident. Aorta: Unremarkable. No aortic aneurysm. No aortic dissection. Lungs: Unremarkable. No consolidation. No masses. Pleural space: Small right-sided pleural effusion and minimal associated atelectasis Heart: Unremarkable. No cardiomegaly. No pericardial effusion. Gallbladder and bile ducts: The patient appears to be status post recent abdominal surgery likely cholecystectomy. A drainage catheter is present in the right upper quadrant area a partially imaged fluid collection is present in the region of the gallbladder fossa measuring up to 6.3 x 5.8 cm. Differential would include a postoperative fluid collection, either bile leak or abscess. If further evaluation is clinically warranted, CT imaging of the abdomen and pelvis is recommended. Lymph nodes: Unremarkable. No enlarged lymph nodes. Bones/joints: Unremarkable. No acute fracture. Soft tissues: Unremarkable. IMPRESSION: 1. The pulmonary arteries are suboptimally opacified to assess for PE, however no obvious central PE is evident. 2. The patient appears to be status post recent abdominal surgery likely cholecystectomy. A drainage catheter is present in the right upper quadrant area a partially imaged fluid collection is present in the region of the gallbladder fossa measuring up to 6.3 x 5.8 cm. Differential would include a postoperative fluid collection, either bile leak or abscess. If further evaluation is clinically warranted, CT imaging of the abdomen and pelvis is recommended. Dictated and Authenticated by: Mason Fermin MD. Ordering:[facility] Sara Roy MD
[2019-07-30] MEDS: Ondansetron 4 MG/2 ML VIAL IVP (06:46)
[2019-07-30 07:09] LABS: ALT 248 U/L (16-63); AST 62 U/L (15-37); Albumin 2.3 g/dL (3.4-5.0); Alkaline Phosphatase 128 U/L (46-116); Amylase 563 U/L (25-115); Anion Gap 6.2 mmol/L (3-11); BUN 16 mg/dL (7-18); Bilirubin, Total 1.3 mg/dL (0.2-1.0); CO2 29.8 mmol/L (21.0-32.0); CREATININE 0.67 mg/dL (0.70-1.30); Calcium 7.9 mg/dL (8.5-10.1); Chloride 102 mmol/L (98-107); Glucose 108 mg/dL (74-106); Magnesium 2.3 mg/dL (1.8-2.4); Potassium 3.6 mmol/L (3.5-5.1); Sodium 138 mmol/L (136-145); Total Protein 5.9 g/dL (6.4-8.2)
[2019-07-30 07:23] LABS: Lipase 3723 U/L (73-393)
--- NOTE | 2019-07-30 07:50 | DI.RAD_ITS ---
EXAM: XR CHEST 2V PA LATERAL INDICATION: dyspnea, tachycardia. COMPARISON: XR ABDOMEN FLAT PLATE from 07/27/2019 XR ABDOMEN FLAT UPRIGHT from 07/29/2019 CT CHEST PE CTA from 07/30/2019 TECHNIQUE: 2D digital imaging was performed. FINDINGS: There is stable mild blunting at the right costophrenic angle likely representing a small effusion. There is minimal right basilar atelectasis. The heart size is normal. There is a small amount of fr ee air beneath the diaphragm, presumably postsurgical. IMPRESSION: Tiny right pleural effusion and mild basilar atelectasis.
[2019-07-30] MEDS: Sennosides/Docusate Sodium TAB 1 TAB PO (08:57)
[2019-07-30] MEDS: Lisinopril 10 MG TAB PO (08:57)
[2019-07-30] MEDS: Lactobacillus Acidophilus CAP 1 CAP PO ×3 (08:57→21:09)
[2019-07-30] MEDS: Normal Saline Flush 10 ML SYR IVP ×3 (08:58→17:32)
[2019-07-30] MEDS: Metoprolol 12.5 MG TAB PO ×2 (09:01→21:09)
--- NOTE | 2019-07-30 10:34 | PDOC.CMPRO ---
- If Service Date Differs Date of service: 07/30/19 Time of Service: 10:34 Care Management Progress Note S/O:Jemal remains acute no changes in his status today he is not sleeping well. CM continues to provide support discharge planning and disposition. A: Jemal is a 78 year old male admitted to [facility] on 07/23/2019 for right upper quadrant pain and cholelithiasis.Status post lap jody, and ERCP at [facility], Bile leak, postoperative, assessment and plan: s/p ercp and stent, stent will need to remove in 6-12 wks per provider. P: Jemal will be discharged home when medically ready per provider. Discharge planning requires presence due to Jemal experiencing some reported memory deficits. His , Modesta, will transport him home via private vehicle when ready. CM continues to follow.
--- NOTE | 2019-07-30 10:44 | W.PM.PROGNOT ---
Date of Service Date of service: 07/30/19 Time of Service: 10:44 Assessment and Plan Assessment and plan (1) Chronic back pain: Status: Acute Assessment and plan: pt continues to have problems (2) Nonsustained paroxysmal supraventricular tachycardia: Status: Acute Assessment and plan: not sure what this is related too. nursing is unclear if this was assoc w/ trying to have a BM or if this was before he had a BM. EKG adn trop's cont to remain unchanged adn nl. He does have a perstent R bundle on EKG. CHest CT ws poor study- but did not seem to be abnormal. pt states he cannot lie on the table in [place] for a V/Q scan electrolytes are stable pt started on B blockers adn we will se how he responds. (3) Pancreatitis: Status: Acute Assessment and plan: resolving slowly ADAT pulm toilet DT proph (4) Bile leak, postoperative: Status: Acute Assessment and plan: seems to be resolved (5) Cholelithiasis with acute on chronic cholecystitis: Status: Acute Assessment and plan: abx are done. drain still in place. pt had bm today. Subjective Subjective Interval history since last seen: pt is getting tired and discouraged. He says when he take a very deep breathe it gives him pain in his chest. 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 no headaches. No CP or SOB. no productive cough. no dysuria. no leg pain or swelling. He did have a BM this am and was up all night walking. he still feels bloated and has decreased BS today. He had mult runs of SVT last pm. A CT for PE was done. It was not technically a good study. A v/q was ordered for today. Pt states he just can't lay on his back that long- and he refuses to have it done. RN's note he has had minimal outpt from drain. Exam Const General: cooperative, healthy appearing, comfortable, no acute distress, well developed and well groomed Nutritional Appearance: average body habitus and well nourished Orientation: alert, awake and oriented x3 HENMT Head: normal to inspection, normocephalic and atraumatic Ears: hearing grossly normal bilaterally and external ears normal General nose exam: external nose normal Face and sinus: normal facial exam and sinuses nontender Mouth: oral mucosae normal, lip normal, tongue normal and moist mucous membranes Teeth and gingiva: dentition normal Eyes General: appearance normal, both eyes and all related structures Conjunctivae: conjunctivae normal Sclera: sclerae normal Pupils: PERRL Neck Neck: normal visual inspection and full ROM Chest Chest: normal inspection of the chest Resp Effort & Inspection: normal respiratory effort, able to speak in complete sentences, no cough, no nasal flaring, not tachypneic and no use of accessory muscles Auscultation: clear to auscultation bilaterally, no rales, no rhonchi and no wheezes Other: pulses is steady and regular today. he was started on a beta monik. Cardio Jugular venous pressure: no JVD Rate: regular rate Rhythm: regular rhythm GI Inspection: normal to inspection, no edema and non-distended Palpation: soft, no masses, nontender and No ascites Auscultation: hypoactive bowel sounds Other: bs are hypo but present. incisions are c/d/i. drainage- collection noted on CT. the drain is in the middle of the collection. scant outpt. clinically his abdom looks better and he is having less pain. Skin General skin exam: no rashes or lesions noted Trauma: no lacerations or abrasions Neuro General: alert, oriented x3, oriented, gait normal, moves all extremities, no focal motor deficits and CN's II-XI intact bilaterally Cognition: normal cognition Speech: speech normal Gait: normal gait Motor: muscle tone normal throughout Extrem General: normal to inspection, full ROM and no clubbing, cyanosis or edema Psych Appearance: grossly normal and well kempt Mental Status: mental status grossly normal Speech and Movement: speech and movement normal Affect: normal affect Objective Objective Clinical Data: Abnormal lab results 07/29/19 07/30/19 Range/Units 19:05 06:09 BUN 24 H (7-18) mg/dL Creatinine 0.67 L (0.70-1.30) mg/dL Glucose 145 H 108 H (74-106) mg/dL Calcium 7.9 L 7.9 L (8.5-10.1) mg/dL Magnesium 2.5 H (1.8-2.4) mg/dL Total Bilirubin 1.3 H (0.2-1.0) mg/dL AST 62 H (15-37) U/L ALT 248 H (16-63) U/L Alkaline Phosphatase 128 H (46-116) U/L Total Protein 5.9 L (6.4-8.2) g/dL Albumin 2.3 L (3.4-5.0) g/dL Amylase 563 H (25-115) U/L Lipase 3723 H (73-393) U/L Vital Signs Temperature 37 C 07/30/19 07:35 Temperature Source Tympanic 07/30/19 07:35 Pulse 85 07/30/19 07:35 Pulse Rhythm Regular 07/30/19 00:30 Pulse 67 07/23/19 04:31 Respiratory Rate 18 07/30/19 07:35 Respiratory Effort Non-Labored 07/30/19 00:30 Respiratory Depth Normal 07/30/19 00:30 Respiratory Pattern Normal 07/30/19 00:30 Blood Pressure 166/71 H 07/30/19 07:35 Blood Pressure Mean 101 07/23/19 05:46 Blood Pressure Position Sitting 07/23/19 03:36 Pulse Oximetry 97 07/30/19 07:35 Respiratory End-tidal CO2 20 07/24/19 14:47 Oxygen Delivery Method Room Air 07/30/19 07:35 Oxygen Flow Rate 0 07/30/19 07:35 Pain Level 0 07/30/19 07:35 Comment 07/29/19 23:14 Intake & Output 07/29/19 07/29/19 07/30/19 11:59 23:59 11:59 Intake Total 1375.333 / 3545.333 2170.000 / 3545.333 1172.500 / 1172.500 Output Total 350 / 560 210 / 560 450 / 450 Balance 1025.333 / 2985.333 1960.000 / 2985.333 722.500 / 722.500 Intake: IV 1255.333 / 2355.333 1100.000 / 2355.333 1122.500 / 1122.500 Oral 120 / 1190 1070 / 1190 50 / 50 Output: Drainage 100 / 110 10 / 110 Mid Anterior Medial Abdomen 100 / 110 10 / 110 Urine 250 / 450 200 / 450 450 / 450 Other: Urine Color Light [place] Yellow Yellow Urine Appearance Clear Clear Clear Urine Odor Normal Normal Normal Comment pt voided in the toilet some voided into the toliet voided in toliet as well Stool Size Small Moderate Stool Characteristics Formed Soft Hard Liquid Brown Brown Voiding Methods Toilet Toilet Urinal Urinal Laboratory Results WBC 6.90 k/cumm (4.4-10.8) 07/28/19 06:10 RBC 3.53 m/cumm (4.50-6.00) L 07/28/19 06:10 Hgb 9.9 g/dL (13.5-17.5) L 07/28/19 06:10 Hct 30.6 % (40.0-50.0) L 07/28/19 06:10 MCV 86.7 fL (80-95) 07/28/19 06:10 MCH 28.0 pg (27.0-33.0) 07/28/19 06:10 MCHC 32.4 g/dL (32.0-36.0) 07/28/19 06:10 RDW 20.9 % (11.8-14.1) H 07/28/19 06:10 Plt Count 189 x1000/uL (130-400) 07/28/19 06:10 MPV 10.1 fL (8.0-11.0) 07/28/19 06:10 Immature Gran % 0.1 07/28/19 06:10 Neutrophils % 79.5 07/28/19 06:10 Lymphocytes % 9.4 07/28/19 06:10 Monocytes % 10.0 07/28/19 06:10 Eosinophils % 0.9 07/28/19 06:10 Basophils % 0.1 07/28/19 06:10 Absolute Neutrophils 5.48 k/cumm (1.2-6.7) 07/28/19 06:10 Absolute Lymphocytes 0.65 k/cumm (1.2-3.4) L 07/28/19 06:10 Absolute Monocytes 0.69 k/cumm (0.11-0.7) 07/28/19 06:10 Absolute Eosinophils 0.06 k/cumm (0.0-0.7) 07/28/19 06:10 Absolute Basophils 0.01 k/cumm (0.0-0.2) 07/28/19 06:10 Differential Comment Rbc morph reviewed 07/25/19 06:20 RBC Morphology See below 07/25/19 06:20 Hypochromasia 1+ 07/25/19 06:20 Anisocytosis 2+ 07/25/19 06:20 Microcytosis 1+ 07/25/19 06:20 Sodium 138 mmol/L (136-145) 07/30/19 06:09 Potassium 3.6 mmol/L (3.5-5.1) 07/30/19 06:09 Chloride 102 mmol/L (98-107) 07/30/19 06:09 Carbon Dioxide 29.8 mmol/L (21.0-32.0) 07/30/19 06:09 Anion Gap 6.2 mmol/L (3-11) 07/30/19 06:09 BUN 16 mg/dL (7-18) D 07/30/19 06:09 Creatinine 0.67 mg/dL (0.70-1.30) L 07/30/19 06:09 Estimated GFR/1.73 m2 >= 60.00 (mL/min/1.73m2) 07/30/19 06:09 Glucose 108 mg/dL (74-106) H 07/30/19 06:09 Calcium 7.9 mg/dL (8.5-10.1) L 07/30/19 06:09 Magnesium 2.3 mg/dL (1.8-2.4) 07/30/19 06:09 Total Bilirubin 1.3 mg/dL (0.2-1.0) H 07/30/19 06:09 Conjugated Bilirubin 0.45 mg/dL (0.00-0.20) H 07/26/19 06:05 AST 62 U/L (15-37) H 07/30/19 06:09 ALT 248 U/L (16-63) H 07/30/19 06:09 Alkaline Phosphatase 128 U/L (46-116) H 07/30/19 06:09 Troponin I Cancelled 07/30/19 05:35 NT-Pro-B Natriuret Pep 691 pg/mL (<300) 07/28/19 07:43 NT-Pro-B Natriuret Pep Cancelled 07/28/19 07:43 Total Protein 5.9 g/dL (6.4-8.2) L 07/30/19 06:09 Albumin 2.3 g/dL (3.4-5.0) L 07/30/19 06:09 Triglycerides 63 mg/dL (<150) 07/25/19 06:20 Total Cholesterol 111 mg/dL (<200) 07/25/19 06:20 LDL Cholesterol, Calc 53 mg/dL 07/25/19 06:20 HDL Cholesterol 46 mg/dL (40-60) 07/25/19 06:20 Amylase 563 U/L (25-115) H 07/30/19 06:09 Lipase 3723 U/L (73-393) H 07/30/19 06:09 TSH 2.36 uIU/mL (0.36-3.74) 07/29/19 19:05 Free T4 1.34 ng/dL (0.76-1.46) 07/29/19 19:05 Urine Color Yellow (Yellow) 07/23/19 04:00 Urine Clarity Clear (Clear) 07/23/19 04:00 Urine pH 7.0 (5-8) 07/23/19 04:00 Ur Specific [place] 1.020 (1.005-1.025) 07/23/19 04:00 Urine Protein 30 mg/dL (Negative) H 07/23/19 04:00 Urine Ketones 15 mg/dL (Negative) H 07/23/19 04:00 Urine Blood Trace-intact (Negative) H 07/23/19 04:00 Urine Nitrite Negative (Negative) 07/23/19 04:00 Urine Bilirubin Negative (Negative) 07/23/19 04:00 Urine Urobilinogen 1.0 EU/dL (Up TO 0.2) H 07/23/19 04:00 Ur Leukocyte Esterase Negative (Negative) 07/23/19 04:00 Urine RBC 3-5 HPF (0-2) H 07/23/19 04:00 Urine WBC 0-2 HPF (0-5) 07/23/19 04:00 Ur Epithelial Cells Rare HPF (Negative) 07/23/19 04:00 Urine Crystals Negative HPF (Negative) 07/23/19 04:00 Urine Bacteria Rare HPF (Negative) 07/23/19 04:00 Urine Casts Negative LPF (Negative) 07/23/19 04:00 Urine Mucus Trace (Negative) 07/23/19 04:00 Ur Culture Indicated? No 07/23/19 04:00 Urine Glucose 100 mg/dL (Negative) 07/23/19 04:00
[2019-07-30] MEDS: Enoxaparin 40 MG/0.4 ML SYR SC (12:14)
[2019-07-30] MEDS: Pantoprazole 40 MG VIAL IVP (17:31)
--- NOTE | 2019-07-30 17:51 | PGE_ITS ---
Date of Service Date of service: 07/30/19 Time of Service: 16:45 Assessment and Plan Assessment and plan (1) Nonsustained paroxysmal supraventricular tachycardia: Status: Acute Assessment and plan: No recurrences since initiation of a low dose beta monik. Will continue to monitor on tele. Cannot definitively rule out a PE based on the quality of the CTA, and the patient is refusing a VQ scan, but he is also not hypoxic or tachypneic and is not having chest pain. At this point, would not fully anticoagulate. On discharge, would benefit from a zio patch (to be ordered through PCP's office). (2) Pancreatitis: Status: Acute Assessment and plan: Post-ERCP - improved - defer to primary team. Ileus related to this has resolved. (3) Bile leak, postoperative: Status: Acute Assessment and plan: S/p ERCP/stent - as above (4) Chest pain: Status: Resolved Assessment and plan: Likely non-cardiac in origin and due to GI causes. Ruled out for ACS. Echo without wall motion abnormalities. Continue to monitor on tele for SVT. Subjective Subjective Interval history since last seen: Mr Watkins had numerous episodes of SVT and sinus tach overnight. Initiated on a low dose of metoprolol this morning and no episodes have been seen on telemetry since 9 am. CTA chest could not definitively rule out a small PE. Patient adamantly refused a VQ scan and verbalizes understanding he could have a blood clot. Had several BM's today and is feeling much better. Denies dizziness, chest pain, shortness of breath, nausea, vomiting. Exam Narrative Exam Narrative: General: very pleasant elderly male, A&OX3, sitting in a chair, looks much better HEENT: EOMI, MMM Heart: RRR, +TRINITY Lungs: CTAB, but diminished at B bases GI: abdomen is soft, full, +BS, nontender Extremities: no e/c/c BLE's Objective Objective Clinical Data: Abnormal lab results 07/29/19 07/30/19 Range/Units 19:05 06:09 BUN 24 H (7-18) mg/dL Creatinine 0.67 L (0.70-1.30) mg/dL Glucose 145 H 108 H (74-106) mg/dL Calcium 7.9 L 7.9 L (8.5-10.1) mg/dL Magnesium 2.5 H (1.8-2.4) mg/dL Total Bilirubin 1.3 H (0.2-1.0) mg/dL AST 62 H (15-37) U/L ALT 248 H (16-63) U/L Alkaline Phosphatase 128 H (46-116) U/L Total Protein 5.9 L (6.4-8.2) g/dL Albumin 2.3 L (3.4-5.0) g/dL Amylase 563 H (25-115) U/L Lipase 3723 H (73-393) U/L Vital Signs Temperature 36.7 C 07/30/19 15:28 Temperature Source Tympanic 07/30/19 15:28 Pulse 89 07/30/19 15:28 Pulse Rhythm Regular 07/30/19 14:30 Pulse 67 07/23/19 04:31 Respiratory Rate 18 07/30/19 15:28 Respiratory Effort Non-Labored 07/30/19 14:30 Respiratory Depth Normal 07/30/19 14:30 Respiratory Pattern Normal 07/30/19 14:30 Blood Pressure 133/70 07/30/19 15:28 Blood Pressure Mean 101 07/23/19 05:46 Blood Pressure Position Sitting 07/23/19 03:36 Pulse Oximetry 97 07/30/19 15:28 Respiratory End-tidal CO2 20 07/24/19 14:47 Oxygen Delivery Method Room Air 07/30/19 15:28 Oxygen Flow Rate 0 07/30/19 15:28 Pain Level 0 07/30/19 17:31 Comment 07/29/19 23:14 Intake & Output 07/29/19 07/30/19 07/30/19 23:59 11:59 23:59 Intake Total 2170.000 / 3545.333 1949.167 / 1949.167 Output Total 210 / 560 650 / 650 Balance 1960.000 / 2985.333 1299.167 / 1299.167 Intake: IV 1100.000 / 2355.333 1899.167 / 1899.167 Oral 1070 / 1190 50 / 50 Output: Drainage Mid Anterior Medial Abdomen Urine 200 / 450 650 / 650 Other: Urine Color Yellow Yellow Urine Appearance Clear Clear Clear Urine Odor Normal Normal Comment some voided into the toliet voided in toliet as well Stool Size Moderate Stool Characteristics Soft Brown Voiding Methods Toilet Urinal Urinal Laboratory Results WBC 6.90 k/cumm (4.4-10.8) 07/28/19 06:10 RBC 3.53 m/cumm (4.50-6.00) L 07/28/19 06:10 Hgb 9.9 g/dL (13.5-17.5) L 07/28/19 06:10 Hct 30.6 % (40.0-50.0) L 07/28/19 06:10 MCV 86.7 fL (80-95) 07/28/19 06:10 MCH 28.0 pg (27.0-33.0) 07/28/19 06:10 MCHC 32.4 g/dL (32.0-36.0) 07/28/19 06:10 RDW 20.9 % (11.8-14.1) H 07/28/19 06:10 Plt Count 189 x1000/uL (130-400) 07/28/19 06:10 MPV 10.1 fL (8.0-11.0) 07/28/19 06:10 Immature Gran % 0.1 07/28/19 06:10 Neutrophils % 79.5 07/28/19 06:10 Lymphocytes % 9.4 07/28/19 06:10 Monocytes % 10.0 07/28/19 06:10 Eosinophils % 0.9 07/28/19 06:10 Basophils % 0.1 07/28/19 06:10 Absolute Neutrophils 5.48 k/cumm (1.2-6.7) 07/28/19 06:10 Absolute Lymphocytes 0.65 k/cumm (1.2-3.4) L 07/28/19 06:10 Absolute Monocytes 0.69 k/cumm (0.11-0.7) 07/28/19 06:10 Absolute Eosinophils 0.06 k/cumm (0.0-0.7) 07/28/19 06:10 Absolute Basophils 0.01 k/cumm (0.0-0.2) 07/28/19 06:10 Differential Comment Rbc morph reviewed 07/25/19 06:20 RBC Morphology See below 07/25/19 06:20 Hypochromasia 1+ 07/25/19 06:20 Anisocytosis 2+ 07/25/19 06:20 Microcytosis 1+ 07/25/19 06:20 Sodium 138 mmol/L (136-145) 07/30/19 06:09 Potassium 3.6 mmol/L (3.5-5.1) 07/30/19 06:09 Chloride 102 mmol/L (98-107) 07/30/19 06:09 Carbon Dioxide 29.8 mmol/L (21.0-32.0) 07/30/19 06:09 Anion Gap 6.2 mmol/L (3-11) 07/30/19 06:09 BUN 16 mg/dL (7-18) D 07/30/19 06:09 Creatinine 0.67 mg/dL (0.70-1.30) L 07/30/19 06:09 Estimated GFR/1.73 m2 >= 60.00 (mL/min/1.73m2) 07/30/19 06:09 Glucose 108 mg/dL (74-106) H 07/30/19 06:09 Calcium 7.9 mg/dL (8.5-10.1) L 07/30/19 06:09 Magnesium 2.3 mg/dL (1.8-2.4) 07/30/19 06:09 Total Bilirubin 1.3 mg/dL (0.2-1.0) H 07/30/19 06:09 Conjugated Bilirubin 0.45 mg/dL (0.00-0.20) H 07/26/19 06:05 AST 62 U/L (15-37) H 07/30/19 06:09 ALT 248 U/L (16-63) H 07/30/19 06:09 Alkaline Phosphatase 128 U/L (46-116) H 07/30/19 06:09 Troponin I Cancelled 07/30/19 05:35 NT-Pro-B Natriuret Pep 691 pg/mL (<300) 07/28/19 07:43 NT-Pro-B Natriuret Pep Cancelled 07/28/19 07:43 Total Protein 5.9 g/dL (6.4-8.2) L 07/30/19 06:09 Albumin 2.3 g/dL (3.4-5.0) L 07/30/19 06:09 Triglycerides 63 mg/dL (<150) 07/25/19 06:20 Total Cholesterol 111 mg/dL (<200) 07/25/19 06:20 LDL Cholesterol, Calc 53 mg/dL 07/25/19 06:20 HDL Cholesterol 46 mg/dL (40-60) 07/25/19 06:20 Amylase 563 U/L (25-115) H 07/30/19 06:09 Lipase 3723 U/L (73-393) H 07/30/19 06:09 TSH 2.36 uIU/mL (0.36-3.74) 07/29/19 19:05 Free T4 1.34 ng/dL (0.76-1.46) 07/29/19 19:05 Urine Color Yellow (Yellow) 07/23/19 04:00 Urine Clarity Clear (Clear) 07/23/19 04:00 Urine pH 7.0 (5-8) 07/23/19 04:00 Ur Specific [place] 1.020 (1.005-1.025) 07/23/19 04:00 Urine Protein 30 mg/dL (Negative) H 07/23/19 04:00 Urine Ketones 15 mg/dL (Negative) H 07/23/19 04:00 Urine Blood Trace-intact (Negative) H 07/23/19 04:00 Urine Nitrite Negative (Negative) 07/23/19 04:00 Urine Bilirubin Negative (Negative) 07/23/19 04:00 Urine Urobilinogen 1.0 EU/dL (Up TO 0.2) H 07/23/19 04:00 Ur Leukocyte Esterase Negative (Negative) 07/23/19 04:00 Urine RBC 3-5 HPF (0-2) H 07/23/19 04:00 Urine WBC 0-2 HPF (0-5) 07/23/19 04:00 Ur Epithelial Cells Rare HPF (Negative) 07/23/19 04:00 Urine Crystals Negative HPF (Negative) 07/23/19 04:00 Urine Bacteria Rare HPF (Negative) 07/23/19 04:00 Urine Casts Negative LPF (Negative) 07/23/19 04:00 Urine Mucus Trace (Negative) 07/23/19 04:00 Ur Culture Indicated? No 07/23/19 04:00 Urine Glucose 100 mg/dL (Negative) 07/23/19 04:00
[2019-07-30] MEDS: traZODone 100 MG TAB PO (21:09)
[2019-07-30] MEDS: Latanoprost 0.005% 2.5 ML BTL OP (21:09)
[2019-07-30] MEDS: Insulin Aspart 300 UNITS/3 ML PEN SC (21:57)
[2019-07-31 00:10] VITALS: PULSE 90
[2019-07-31] MEDS: ACETAMINOPHEN 1,000 MG/100 ML BTL 400 MG IVPB (01:53)
[2019-07-31] MEDS: Normal Saline Flush 10 ML SYR IVP ×3 (01:53→12:40)
[2019-07-31 03:50] VITALS: BP 152/66; PULSE 85; RESP 16; TEMP 36.8; O2SAT 97
[2019-07-31] MEDS: Metoclopramide 10 MG/2 ML VIAL IVP ×2 (06:06→12:52)
[2019-07-31 07:25] VITALS: BP 172/72; PULSE 79; RESP 17; TEMP 36.6; O2SAT 97
[2019-07-31] MEDS: Sennosides/Docusate Sodium TAB 1 TAB PO (07:56)
[2019-07-31] MEDS: Glimepiride 2 MG TAB 4 MG PO (07:56)
[2019-07-31] MEDS: Metoprolol 12.5 MG TAB PO (07:56)
[2019-07-31] MEDS: Lisinopril 10 MG TAB PO (07:57)
[2019-07-31] MEDS: Lactobacillus Acidophilus CAP 1 CAP PO ×2 (07:57→14:36)
--- NOTE | 2019-07-31 08:16 | PGE_ITS ---
Documented by User: ARDEN Aleman 07/31/19 08:23 Date of Service Date of service: 07/31/19 Time of Service: 08:17 Assessment and Plan Assessment and plan (1) S/P laparoscopic cholecystectomy: Status: Acute Assessment and plan: Denies abdominal pain. Reports he continues to have frequent BMs. (2) Bile leak, postoperative: Status: Acute (3) Chronic back pain: Status: Acute Assessment and plan: Encouraged activity as tolerated. (4) Nonsustained paroxysmal supraventricular tachycardia: Status: Acute Assessment and plan: Started beta monik. Subjective Subjective Interval history since last seen: Feeling better today. Denies abdominal pain. He expresses that he is eager to return home. Exam Const General: cooperative, healthy appearing and comfortable Orientation: alert and oriented x3 Resp Effort & Inspection: normal respiratory effort, no audible wheezes and no cough GI Inspection: normal to inspection and non-distended Objective Objective Clinical Data: Vital Signs Temperature 36.6 C 07/31/19 07:25 Temperature Source Temporal Artery Scan 07/31/19 07:25 Pulse 79 07/31/19 07:25 Pulse Rhythm Irregular 07/31/19 08:04 Pulse 67 07/23/19 04:31 Respiratory Rate 17 07/31/19 07:25 Respiratory Effort Non-Labored 07/31/19 08:04 Respiratory Depth Normal 07/31/19 08:04 Respiratory Pattern Normal 07/31/19 08:04 Blood Pressure 172/72 H 07/31/19 07:25 Blood Pressure Mean 101 07/23/19 05:46 Blood Pressure Position Sitting 07/23/19 03:36 Pulse Oximetry 97 07/31/19 07:25 Respiratory End-tidal CO2 20 07/24/19 14:47 Oxygen Delivery Method Room Air 07/31/19 07:25 Oxygen Flow Rate 0 07/31/19 07:25 Pain Level 0 07/31/19 07:25 Comment 07/29/19 23:14 Intake & Output 07/30/19 07/31/19 07/31/19 18:59 06:59 18:59 Intake Total 976.667 / 1216.667 240 / 1216.667 Output Total 400 / 1283 883 / 1283 Balance 576.667 / -66.333 -643 / -66.333 Intake: IV 976.667 / 976.667 Oral 240 / 240 Output: Drainage Mid Anterior Medial Abdomen Urine 400 / 1275 875 / 1275 Other: Urine Color Yellow Yellow Urine Appearance Clear Clear Stool Size Large Stool Characteristics Soft Brown Voiding Methods Urinal Urinal Laboratory Results WBC 6.90 k/cumm (4.4-10.8) 07/28/19 06:10 RBC 3.53 m/cumm (4.50-6.00) L 07/28/19 06:10 Hgb 9.9 g/dL (13.5-17.5) L 07/28/19 06:10 Hct 30.6 % (40.0-50.0) L 07/28/19 06:10 MCV 86.7 fL (80-95) 07/28/19 06:10 MCH 28.0 pg (27.0-33.0) 07/28/19 06:10 MCHC 32.4 g/dL (32.0-36.0) 07/28/19 06:10 RDW 20.9 % (11.8-14.1) H 07/28/19 06:10 Plt Count 189 x1000/uL (130-400) 07/28/19 06:10 MPV 10.1 fL (8.0-11.0) 07/28/19 06:10 Immature Gran % 0.1 07/28/19 06:10 Neutrophils % 79.5 07/28/19 06:10 Lymphocytes % 9.4 07/28/19 06:10 Monocytes % 10.0 07/28/19 06:10 Eosinophils % 0.9 07/28/19 06:10 Basophils % 0.1 07/28/19 06:10 Absolute Neutrophils 5.48 k/cumm (1.2-6.7) 07/28/19 06:10 Absolute Lymphocytes 0.65 k/cumm (1.2-3.4) L 07/28/19 06:10 Absolute Monocytes 0.69 k/cumm (0.11-0.7) 07/28/19 06:10 Absolute Eosinophils 0.06 k/cumm (0.0-0.7) 07/28/19 06:10 Absolute Basophils 0.01 k/cumm (0.0-0.2) 07/28/19 06:10 Differential Comment Rbc morph reviewed 07/25/19 06:20 RBC Morphology See below 07/25/19 06:20 Hypochromasia 1+ 07/25/19 06:20 Anisocytosis 2+ 07/25/19 06:20 Microcytosis 1+ 07/25/19 06:20 Sodium 138 mmol/L (136-145) 07/30/19 06:09 Potassium 3.6 mmol/L (3.5-5.1) 07/30/19 06:09 Chloride 102 mmol/L (98-107) 07/30/19 06:09 Carbon Dioxide 29.8 mmol/L (21.0-32.0) 07/30/19 06:09 Anion Gap 6.2 mmol/L (3-11) 07/30/19 06:09 BUN 16 mg/dL (7-18) D 07/30/19 06:09 Creatinine 0.67 mg/dL (0.70-1.30) L 07/30/19 06:09 Estimated GFR/1.73 m2 >= 60.00 (mL/min/1.73m2) 07/30/19 06:09 Glucose 108 mg/dL (74-106) H 07/30/19 06:09 Calcium 7.9 mg/dL (8.5-10.1) L 07/30/19 06:09 Magnesium 2.3 mg/dL (1.8-2.4) 07/30/19 06:09 Total Bilirubin 1.3 mg/dL (0.2-1.0) H 07/30/19 06:09 Conjugated Bilirubin 0.45 mg/dL (0.00-0.20) H 07/26/19 06:05 AST 62 U/L (15-37) H 07/30/19 06:09 ALT 248 U/L (16-63) H 07/30/19 06:09 Alkaline Phosphatase 128 U/L (46-116) H 07/30/19 06:09 Troponin I Cancelled 07/30/19 05:35 NT-Pro-B Natriuret Pep 691 pg/mL (<300) 07/28/19 07:43 NT-Pro-B Natriuret Pep Cancelled 07/28/19 07:43 Total Protein 5.9 g/dL (6.4-8.2) L 07/30/19 06:09 Albumin 2.3 g/dL (3.4-5.0) L 07/30/19 06:09 Triglycerides 63 mg/dL (<150) 07/25/19 06:20 Total Cholesterol 111 mg/dL (<200) 07/25/19 06:20 LDL Cholesterol, Calc 53 mg/dL 07/25/19 06:20 HDL Cholesterol 46 mg/dL (40-60) 07/25/19 06:20 Amylase 563 U/L (25-115) H 07/30/19 06:09 Lipase 3723 U/L (73-393) H 07/30/19 06:09 TSH 2.36 uIU/mL (0.36-3.74) 07/29/19 19:05 Free T4 1.34 ng/dL (0.76-1.46) 07/29/19 19:05 Urine Color Yellow (Yellow) 07/23/19 04:00 Urine Clarity Clear (Clear) 07/23/19 04:00 Urine pH 7.0 (5-8) 07/23/19 04:00 Ur Specific [place] 1.020 (1.005-1.025) 07/23/19 04:00 Urine Protein 30 mg/dL (Negative) H 07/23/19 04:00 Urine Ketones 15 mg/dL (Negative) H 07/23/19 04:00 Urine Blood Trace-intact (Negative) H 07/23/19 04:00 Urine Nitrite Negative (Negative) 07/23/19 04:00 Urine Bilirubin Negative (Negative) 07/23/19 04:00 Urine Urobilinogen 1.0 EU/dL (Up TO 0.2) H 07/23/19 04:00 Ur Leukocyte Esterase Negative (Negative) 07/23/19 04:00 Urine RBC 3-5 HPF (0-2) H 07/23/19 04:00 Urine WBC 0-2 HPF (0-5) 07/23/19 04:00 Ur Epithelial Cells Rare HPF (Negative) 07/23/19 04:00 Urine Crystals Negative HPF (Negative) 07/23/19 04:00 Urine Bacteria Rare HPF (Negative) 07/23/19 04:00 Urine Casts Negative LPF (Negative) 07/23/19 04:00 Urine Mucus Trace (Negative) 07/23/19 04:00 Ur Culture Indicated? No 07/23/19 04:00 Urine Glucose 100 mg/dL (Negative) 07/23/19 04:00 Documented by User: Jewels Pizano, 07/31/19 10:02 Assessment and Plan Assessment and plan (1) Acute gangrenous cholecystitis: Status: Acute Assessment and plan: pt seen adn examined. agree w/ above. -will check US for DVT. pt could not lay on NM table for V/Q scan. -encourage ambulation and pulm toilet -check Fe level. poss another dose of Venfir today -home [facility] training. will send home w/ [facility] drain and plan F/u in [facility] on saturday -will need repeat ERCP in 6-12 wks when he is clinically stable. otherwise plan d/c home today - will have RN's or PT eval to see if requires walker (was not using at home). pt needs to go home for mental health.
[2019-07-31 08:37] LABS: Abs Immature Grans 0.03 k/cumm (0.0-0.09); Absolute Basophil Count 0.02 k/cumm (0.0-0.2); Absolute Eosinophil Count 0.28 k/cumm (0.0-0.7); Absolute Lymphocyte Count 0.44 k/cumm (1.2-3.4); Absolute Monocyte Count 0.83 k/cumm (0.11-0.7); Absolute Neutrophil Count 8.43 k/cumm (1.2-6.7); Basophils % 0.2; Eosinophils % 2.8; HCT 30.4 % (40.0-50.0); HGB 9.6 g/dL (13.5-17.5); Immature Grans % 0.3; Lymphocytes % 4.4; Mean Corp. HGB Concentration 31.6 g/dL (32.0-36.0); Mean Corpuscular Hemoglobin 27.6 pg (27.0-33.0); Mean Corpuscular Volume 87.4 fL (80-95); Mean Platelet Volume 9.9 fL (8.0-11.0); Monocytes % 8.3; Platelet Count 239 x1000/uL (130-400); RBC 3.48 m/cumm (4.50-6.00); RBC Distribution Width 21.6 % (11.8-14.1); White Blood Cell Count 10.03 k/cumm (4.4-10.8)
[2019-07-31 08:46] LABS: ALT 155 U/L (16-63); AST 37 U/L (15-37); Albumin 2.1 g/dL (3.4-5.0); Alkaline Phosphatase 138 U/L (46-116); Amylase 94 U/L (25-115); Anion Gap 6.6 mmol/L (3-11); BUN 13 mg/dL (7-18); Bilirubin, Direct 0.54 mg/dL (0.00-0.20); Bilirubin, Total 1.2 mg/dL (0.2-1.0); CO2 28.4 mmol/L (21.0-32.0); Calcium 7.8 mg/dL (8.5-10.1); Chloride 103 mmol/L (98-107); Glucose 110 mg/dL (74-106); Lipase 613 U/L (73-393); Magnesium 2.2 mg/dL (1.8-2.4); Potassium 3.7 mmol/L (3.5-5.1); Sodium 138 mmol/L (136-145); Total Protein 5.9 g/dL (6.4-8.2)
[2019-07-31 08:58] LABS: Anisocytosis 2+; Diff Comment RBC Morph Reviewed; Poikilocytes 1+; Polychromasia Present
[2019-07-31 10:13] LABS: Iron 10 ug/dL (65-175)
[2019-07-31 10:37] LABS: D-Dimer 4777 ng/mlFEU (<500)
[2019-07-31 11:30] VITALS: BP 167/71; PULSE 76; RESP 17; TEMP 36.5; O2SAT 96
--- NOTE | 2019-07-31 11:35 | DI.US_ITS ---
EXAM: US EXTREMITY VENOUS BI CLINICAL HISTORY: dvt TECHNIQUE: Bilateral lower extremity venous ultrasound performed using grayscale, color-flow, and sp ectral Doppler analysis. COMPARISON: US ECHOCARDIOGRAM from 07/28/2019 FINDINGS: The bilateral common femoral, femoral and popliteal veins demonstrate normal compressibility, augment ation, and color Doppler. The posterior tibial veins are patent. The saphenofemoral junctions appear unremarkable. IMPRESSION: Right: Negative for DVT Left: Negative for DVT
--- NOTE | 2019-07-31 11:39 | DSE_ITS ---
Date of service: 07/31/19 Time of Service: 16:15 DS: Diagnosis Discharge Diagnosis (1) Acute gangrenous cholecystitis: Status: Acute (2) Nonsustained paroxysmal supraventricular tachycardia: Status: Acute (3) Pancreatitis: Status: Acute (4) Bile leak, postoperative: Status: Acute Discharge Plan Disposition Patient Disposition: HOME Condition: Fair Discharge Details Chief Complaint: Chest/Rib Clinical Impression: RUQ abdominal pain, Cholelithiasis Reason For Visit: RIGHT UPPER QUADRANT PAIN, CHOLELITHIASIS Admit Date/Time: 07/23/19 05:23 Admit Provider: Andria Álvarez Attending Provider: Andria Álvarez Primary Care Provider: Yumi Garrett ED Provider: Jg García [facility] Hospital Course Hospital Course: pt was admitted 07/23 w/ acute on chronic cholecystitis and cholelithiasis. He was started on antibiotics, hydration & antiemetics, and pain relief. He was taken for a laparoscopic cholecystectomy on July 24. The surgery turned out to be much more extensive, than what was seen on the CT scan, labs and patient's clinical presentation. Please see the operative note for details. Postoperatively he admitted to the floor for pain management, hydration, drain care, and IV antibiotics and close nursing observation and supportive care. He did have overt gangrene of the GB and free bile in the abdomen upon insertion of the scope. A drain was placed in the gallbladder fossa, at the end of the case, with concerns of a postop bile leak. He did develop a postop bile leak and went for ultimately went for ERCP and stent placement at [facility]. He did develop some postprocedural pancreatitis. This resolved with conservative medical management. His course was complicated by a several runs of SVT. I do not think a etiology for this was ever determined. He did have a CT scan for PE this was indeterminate. He did have ultrasound Dopplers of the LE that were negative. His postop course was also complicated by ileus/constipation. He was finally able to move his bowels prior to discharge. At the time of discharge he is tolerating a regular diet. He has no chest pain or shortness of breath. He is in normal sinus rhythm. He was originally on lisinopril and he came into the hospital but we discontinued this and started him on a beta-monik at the recommendation of the hospitalist. He was ambulatory. The bile drainage in his DIVYA had decreased to less than 25 cc. per shift. He had no fever white count. His lungs were clear. And he had no lower extremity pain or swelling. And his incision was clean dry and intact. Patient was given instructions in wound care activity diet and the signs. And he was sent home on beta-monik, senna and a bowel regimen, tramadol for pain, and lactobacillus. He will follow-up with myself in the office in 72 hours for drain removal and to follow his lab work. Home Meds and New Rx's Prescriptions: New sennosides-docusate sodium [Senna Plus] 8.6-50 mg Tablet 1 tab PO BID Qty: 60 RF: 0 metoprolol tartrate 25 mg Tablet 25 mg PO BID 99 Days Qty: 60 RF: 0 acidophilus-pectin, citrus 25 million cell -100 mg Tablet 1 cap PO TID 30 Days Qty: 90 RF: 0 tramadol 50 mg tablet 50 mg PO Q6H PRN (Reason: pain) Qty: 14 RF: 0 Lactobacillus acidophilus Capsule 100 mg PO DAILY Qty: 30 RF: 0 Continued glimepiride 4 mg Tablet 4 mg PO DAILY RF: 0 latanoprost 0.005 % Drops 1 drp OPHTHALMIC (EYE) DAILY RF: 0 meloxicam 15 mg Tablet 15 mg PO DAILY RF: 0 triamcinolone acetonide 0.1 % Cream 1 applic TOPICAL DAILY RF: 0 methocarbamol 750 mg Tablet 750 mg PO TID PRNRF: 0 timolol maleate [Timoptic] 0.25 % Drops 1 drp OPHTHALMIC (EYE) DAILY RF: 0 metformin 1,000 mg Tablet 1,000 mg PO BID RF: 0 lisinopril 10 mg Tablet 10 mg PO DAILY RF: 0 mometasone [Nasonex] 50 mcg/actuation [place],Non-Aerosol 1 spray INTRANASAL BID RF: 0 loratadine 10 mg Tablet 10 mg PO DAILY RF: 0 omeprazole 20 mg Tablet,Delayed Release (Dr/Ec) 20 mg PO DAILY RF: 0 No Action multivitamin Capsule 1 cap PO DAILY RF: 0 ascorbate calcium (vitamin C) 500 mg tablet 500 mg PO DAILY RF: 0 Discharge Instructions Instructions: Low Fat Diet (GEN), Soft Diet (GEN), Sandoval-Ware Drain Care (GEN), Laparoscopic Cholecystectomy (DC) Additional Instructions: Keep an ice bag on the incision. 20 minutes on and 20 minutes off. Ice keeps the swelling down and swelling causes pain. Make sure you wrap the ice pack in a towel and don't apply directly to the skin. -No driving x1 week or of you are taking pain medications. -If you have nellie or sutures in place, they will be removed at your clinic appointment in 7-10 days. -Follow-up with Dr. Pizano in 1 week. -soft low fat diet: No beef/pork raw vegetables x1 -week. Cooked vegetables are fine -no straining to move bowels -pain meds are very constipating: if you do not move your bowels daily take a dose of OTC milk of magnesia -It is ok to shower. No bathe, soaking, swimming or hot tubs -Keep wound clean and dry. Wash incision with soap and water daily. Pat dry, don't rub. -If you do not have steri-tapes on your incision, than keep the wound covered with a gauze and antibacterial ointment. -Protein supplements daily. You may find that your appetite is smaller. Eat 3-6 small meals throughout the day. It is important to drink lots of water after surgery, 6-10 glasses a day. -If you were given an incentive spirometry (\breathing transport nurse\[id number]), continue to do this 10x/hour while awake. -We do want you up walking, at least 5-6 times per day. This is very important to prevent pneumonia and blood clots. You can climb stairs, take them slowly. -No lifting over 5 pounds. This is very important to avoid developing a hernia in your incision. -You may find that you are very tired after surgery- this is normal. -please do not smoke for a minimum of 72 hours after surgery. -home Drain care. empty nad record output twice a day. -yogurt daily -F/u w/ Dr. Pizano in the office on SaturdayAug 10 at 2pm for drain removal -you will need to have the stent removed in 6-12 wks. We will schedule a time for you closer to the date. Stand Alone Forms: Nursing Discharge Form Activity:: no driving x1 week. no lifting over 10#'s x 2 wks. Equipment/Supplies:: No Equipment Needed Diet:: low fat x 2 wks Discharge Orders Discharge Orders: Discharge Order (Routine); Ordered 07/31/19 Ordered By: Jewels Pizano Discharge Data Discharge Date/Time-TO BE ENTERED AT DEPARTURE: 07/31/19 15:15 DS: Summary Status at Discharge Functional status at discharge: independent ambulation Overall status at discharge: patient is back to baseline Mental Status: mental status grossly normal Speech and Movement: speech and movement normal Mood: congruent mood Affect: normal affect Time Spent with Patient providing and/or coordinating discharge services: Greater than 30 minutes Specific discharge activities: instructed patient in home DIVYA care, instructing patient in wound care, instructing patient in diet, instructing patient in activities. In discussing with patient warning signs, and when to seek medical attention. Exam Narrative Exam Narrative: see progress notes from 07/31 Psych Mental Status: mental status grossly normal Speech and Movement: speech and movement normal Mood: congruent mood Affect: normal affect DS: Data Vitals/I&O Vitals and I&O: Vital Signs Temperature 36.6 C 07/31/19 07:25 Temperature Source Temporal Artery Scan 07/31/19 07:25 Pulse 79 07/31/19 07:25 Pulse Rhythm Irregular 07/31/19 08:04 Pulse 67 07/23/19 04:31 Respiratory Rate 17 07/31/19 07:25 Respiratory Effort Non-Labored 07/31/19 08:04 Respiratory Depth Normal 07/31/19 08:04 Respiratory Pattern Normal 07/31/19 08:04 Blood Pressure 172/72 H 07/31/19 07:25 Blood Pressure Mean 101 07/23/19 05:46 Blood Pressure Position Sitting 07/23/19 03:36 Pulse Oximetry 97 07/31/19 07:25 Respiratory End-tidal CO2 20 07/24/19 14:47 Oxygen Delivery Method Room Air 07/31/19 07:25 Oxygen Flow Rate 0 07/31/19 07:25 Pain Level 0 07/31/19 07:25 Comment 07/29/19 23:14 Intake & Output 07/30/19 07/30/19 07/31/19 11:59 23:59 11:59 Intake Total 1949.167 / 2289.167 340 / 2289.167 Output Total 650 / 1000 150 / 1000 733 / 733 Balance 1299.167 / 1289.167 190 / 1289.167 -733 / -733 Intake: IV 1899.167 / 1998.167 100 / 1998.167 Oral 50 / 290 240 / 290 Output: Drainage Mid Anterior Medial Abdomen Urine 650 / 1000 150 / 1000 725 / 725 Other: Urine Color Yellow Light Nadeen Yellow Urine Appearance Clear Clear Clear Urine Odor Normal Comment voided in [place]li[place] as well Stool Size Moderate Large Large Stool Characteristics Soft Soft Soft Brown Brown Brown Voiding Methods Urinal Urinal Urinal Data Completed and Pending Labs on day of discharge: Labs from last 24 hours 07/31/19 07/31/19 07/31/19 09:35 08:05 08:05 WBC 10.03 RBC 3.48 L Hgb 9.6 L Hct 30.4 L MCV 87.4 MCH 27.6 MCHC 31.6 L RDW 21.6 H Plt Count 239 MPV 9.9 Immature Gran % 0.3 Neutrophils % 84.0 Lymphocytes % 4.4 Monocytes % 8.3 Eosinophils % 2.8 Basophils % 0.2 Absolute Neutrophils 8.43 H Absolute Lymphocytes 0.44 L Absolute Monocytes 0.83 H Absolute Eosinophils 0.28 Absolute Basophils 0.02 Differential Comment Rbc morph reviewed RBC Morphology See below Polychromasia Present Poikilocytosis 1+ Anisocytosis 2+ D-Dimer 4777 H Sodium Potassium Chloride Carbon Dioxide Anion Gap BUN Creatinine Estimated GFR/1.73 m2 Glucose Calcium Magnesium Iron 10 L TIBC Pending Transferrin % Sat Pending Total Bilirubin Conjugated Bilirubin AST ALT Alkaline Phosphatase Total Protein Albumin Amylase Lipase 07/31/19 08:05 WBC RBC Hgb Hct MCV MCH MCHC RDW Plt Count MPV Immature Gran % Neutrophils % Lymphocytes % Monocytes % Eosinophils % Basophils % Absolute Neutrophils Absolute Lymphocytes Absolute Monocytes Absolute Eosinophils Absolute Basophils Differential Comment RBC Morphology Polychromasia Poikilocytosis Anisocytosis D-Dimer Sodium 138 Potassium 3.7 Chloride 103 Carbon Dioxide 28.4 Anion Gap 6.6 BUN 13 Creatinine 0.60 L Estimated GFR/1.73 m2 >= 60.00 Glucose 110 H Calcium 7.8 L Magnesium 2.2 Iron TIBC Transferrin % Sat Total Bilirubin 1.2 H Conjugated Bilirubin 0.54 H AST 37 ALT 155 H Alkaline Phosphatase 138 H Total Protein 5.9 L Albumin 2.1 L Amylase 94 Lipase 613 H [facility] Medical History (Updated 07/30/19 @ 17:55 by Denise Godinez MD) Acute gangrenous cholecystitis (Acute) Bile leak, postoperative (Acute) Cholelithiasis with acute on chronic cholecystitis (Acute) Chronic back pain (Acute) Diabetes mellitus (Chronic) Gallstones without obstruction of gallbladder (Acute) GERD (gastroesophageal reflux disease) (Chronic) Glaucoma (Chronic) Hemochromatosis (Chronic) Pancreatitis (Acute) Positive cardiac stress test (Acute) Surgical History (Updated 07/25/19 @ 17:18 by Jewels Pizano DO) Previous back surgery (Acute) S/P laparoscopic cholecystectomy (Acute) Social History Smoking/Tobacco Use Status: Never Drug use: Never Do you feel safe at home: Yes Do you feel safe in your relationship?: Yes
[2019-07-31] MEDS: Insulin Aspart 300 UNITS/3 ML PEN SC (12:05)
[2019-07-31 12:27] LABS: Total Iron Binding Capacity 111 ug/dL (250-450); Transferrin Sat 9 % (20-55)
[2019-07-31] MEDS: IRON SUCROSE COMPLEX 200 MG in Normal Saline 100 ML 400 MG IVPB (12:55)
[2019-07-31 13:12] VITALS: PULSE 83
--- NOTE | 2019-07-31 14:56 | PDOC.HHF2F_ITS ---
Home Health Certification Home Health Certification: 1. Encounter Date and Reason I certify that DARY CAN was seen by Jewels Pizano on 07/31/19 and that I had a [id number] encounter with this patient that meets the physician face to face encounter requirements. 2. Clinical Findings Supporting Skilled Need and Homebound Status I certify that home health services are medically necessary, include either intermittent group home and/or physical/speech therapy, and that this patient is homebound in that absences from the home require considerable and taxing effort and are infrequent or of short duration, or are attributable to the need to receive medical care. [X] (a) Attached documentation from encounter provides clinical findings supporting skilled need and homebound status (including what assistance patient requires to leave the home). The encounter with the patient was in whole, or in part, for the following medical condition, which is the primary reason for home health care: RIGHT UPPER QUADRANT PAIN, CHOLELITHIASIS Custodial: for medication managment. for DIVYA drain care- daily emptying and wound care Physical Therapy: Speech Therapy: Homebound: 3. Certification and Authentication I certify that I composed the above information based on my clinical judgement relating to this patient's medical condition and, if applicable, clinical findings communicated to me by the NPP or inpatient physician who performed the Home Health Referral. All further orders will be obtained through (Community Based Physician - PCP)
--- NOTE | 2019-07-31 18:44 | PDOC.CMDIS ---
LACE Index Scoring Tool - Questions: Length of Stay (in days): 7 - 13 Acuity (Admit via E.D.?): Yes Comorbidities: Diabetes w/o Complication E.D. Visits: 1 - Answers: Total Score: 10 Risk of Readmission: High Risk Care Management Discharge Reason for Hospitalization: Right upper quadrant pain, cholelithiasis Discharge Plan: Jemal will discharge home when ready per MD with new orders for [facility] RN; CM faxed notification and orders when completed. Jemal will follow up with his PCP; anticipate [facility] monitor. [facility] did not fill FWW as RN and MD felt the additional DME was not required at this time. Jemal will transport home via private vehicle with his . Patient/Family Education Needs: Review discharge instructions, discuss Ask Me Three. Services Needed at Discharge: Home Health Care Services
== END 2019-07-31 15:15 | disposition home or self-care (01) | DRG 417 ==
LOC: ER 05:44 → MS 07:36
PROVIDERS: Internal Medicine; Surgery; Admitting Provider Surgery; Emergency Provider Emergency Medicine; PCP Family Medicine; Visit Provider Surgery
PROC: 0FT44ZZ Resection of Gallbladder, Percutaneous Endoscopic Approach (ICD-10-PCS; CPT 47562; principal; 2019-07-24 10:00)
DX: K80.12 Calculus of gallbladder with acute and chronic cholecystitis without obstruction (principal); K85.90 Acute pancreatitis without necrosis or infection, unspecified; K91.89 Other postprocedural complications and disorders of digestive system; I47.1 Supraventricular tachycardia; K82.A1 Gangrene of gallbladder in cholecystitis; E83.119 Hemochromatosis, unspecified; E11.9 Type 2 diabetes mellitus without complications; H40.9 Unspecified glaucoma; K21.9 Gastro-esophageal reflux disease without esophagitis; Z88.0 Allergy status to penicillin; G89.18 Other acute postprocedural pain; R07.89 Other chest pain; R06.09 Other forms of dyspnea; I10 Essential (primary) hypertension; Z96.89 Presence of other specified functional implants; G89.29 Other chronic pain; M54.9 Dorsalgia, unspecified
CPT/HCPCS: 36415; 47562; 71275; 78227; 80048; 80053; 80061; 80076; 83690; 93306; 96361; 96374; 96375; 99223; 99232; 99233; 99239; 99253; 99285; J1650; NC; 71046; 74018; 74019; 74177; 76700; 81003; 81015; 82150; 82247; 83540; 83550; 83735; 83880; 84439; 84443; 84484; 85014; 85018; 85025; 85379; 88304; 93005; 93010; 93970; 99222; 99284; A0425; A0426; A0428; J0131; J1100; J1756; J1790; J1885; J1956; J2001; J2250; J2270; J2405; J2765; J3010; J3490

== ENCOUNTER → 2019-08-03 13:51 | Outpatient (BNVA) | payer MEDICARE, SELFPAY | PROVIDERS: PCP Family Medicine; Referring Provider Family Medicine; Visit Provider Surgery | DX: Z48.815 Encounter for surgical aftercare following surgery on the digestive system (principal); I47.1 Supraventricular tachycardia; K91.89 Other postprocedural complications and disorders of digestive system; K83.8 Other specified diseases of biliary tract; K81.0 Acute cholecystitis ==

== ENCOUNTER 2019-08-14 12:02 | Outpatient (CLI) | payer MEDICARE, SELFPAY ==
[2019-08-14 12:33] LABS: Abs Immature Grans 0.01 k/cumm (0.0-0.09); Absolute Basophil Count 0.02 k/cumm (0.0-0.2); Absolute Eosinophil Count 0.29 k/cumm (0.0-0.7); Absolute Lymphocyte Count 1.04 k/cumm (1.2-3.4); Absolute Monocyte Count 0.46 k/cumm (0.11-0.7); Basophils % 0.4; Eosinophils % 5.9; HCT 34.4 % (40.0-50.0); HGB 10.7 g/dL (13.5-17.5); Immature Grans % 0.2; Lymphocytes % 21.1; Mean Corp. HGB Concentration 31.1 g/dL (32.0-36.0); Mean Corpuscular Hemoglobin 27.3 pg (27.0-33.0); Mean Corpuscular Volume 87.8 fL (80-95); Monocytes % 9.3; Neutrophils % 63.1; Platelet Count 424 x1000/uL (130-400); RBC 3.92 m/cumm (4.50-6.00); RBC Distribution Width 19.4 % (11.8-14.1); White Blood Cell Count 4.92 k/cumm (4.4-10.8)
[2019-08-14 13:24] LABS: ALT 61 U/L (16-63); AST 46 U/L (15-37); Albumin 2.9 g/dL (3.4-5.0); Alkaline Phosphatase 209 U/L (46-116); Amylase 61 U/L (25-115); Anion Gap 8.9 mmol/L (3-11); BUN 18 mg/dL (7-18); Bilirubin, Total 0.5 mg/dL (0.2-1.0); CO2 29.1 mmol/L (21.0-32.0); CREATININE 0.71 mg/dL (0.70-1.30); Calcium 8.8 mg/dL (8.5-10.1); Chloride 102 mmol/L (98-107); Glucose 132 mg/dL (74-106); Lipase 145 U/L (73-393); Potassium 4.4 mmol/L (3.5-5.1); Sodium 140 mmol/L (136-145); Total Protein 7.6 g/dL (6.4-8.2)
== END 2019-08-14 12:22 ==
PROVIDERS: PCP Family Medicine; Visit Provider Surgery
DX: K81.0 Acute cholecystitis (principal); Z48.815 Encounter for surgical aftercare following surgery on the digestive system; K85.90 Acute pancreatitis without necrosis or infection, unspecified; Z90.49 Acquired absence of other specified parts of digestive tract; E11.9 Type 2 diabetes mellitus without complications; Z79.84 Long term (current) use of oral hypoglycemic drugs
CPT/HCPCS: 36415; 80053; 83690; 82150; 85025

== ENCOUNTER → 2019-09-18 13:59 | Outpatient (BNVA) | payer MEDICARE, SELFPAY | PROVIDERS: PCP Family Medicine; Referring Provider Family Medicine; Visit Provider Surgery | DX: E11.9 Type 2 diabetes mellitus without complications (principal); Z48.815 Encounter for surgical aftercare following surgery on the digestive system; K91.89 Other postprocedural complications and disorders of digestive system; K83.8 Other specified diseases of biliary tract; Z79.84 Long term (current) use of oral hypoglycemic drugs ==

== ENCOUNTER 2021-09-06 14:38 | Outpatient (REF) | payer MEDICARE, SELFPAY ==
[2021-09-06 14:43] LABS: Hemoglobin A1C 6.3 % (<5.7)
[2021-09-06 14:53] LABS: ALT 21 U/L (16-63); AST 16 U/L (15-37); Albumin 3.8 g/dL (3.4-5.0); Alkaline Phosphatase 77 U/L (46-116); Anion Gap 5.6 mmol/L (3-11); BUN 17 mg/dL (7-18); Bilirubin, Total 1.7 mg/dL (0.2-1.0); CO2 32.4 mmol/L (21.0-32.0); CREATININE 0.8 mg/dL (0.70-1.30); Calculated LDL 69 mg/dL (<100); Chloride 110 mmol/L (98-107); Cholesterol 134 mg/dL (<200); Glucose 104 mg/dL (74-106); HDL Cholesterol 52 mg/dL (40-60); Potassium 4.5 mmol/L (3.5-5.1); Sodium 148 mmol/L (136-145); Total Protein 7.1 g/dL (6.4-8.2); Triglyceride 66 mg/dL (<150)
[2021-09-06 14:54] LABS: ETHANOL BLOOD < 3.0 mg/dL (<10)
== END 2021-09-06 14:39 | disposition home or self-care (01) ==
LOC: NCHCN 14:38
PROVIDERS: PCP Family Medicine; Visit Provider Family Medicine
DX: E11.9 Type 2 diabetes mellitus without complications (principal); R03.0 Elevated blood-pressure reading, without diagnosis of hypertension; E83.119 Hemochromatosis, unspecified; Z86.79 Personal history of other diseases of the circulatory system
CPT/HCPCS: 80053; 80061; 80320; 83036

== ENCOUNTER 2022-08-24 03:15 | Outpatient (CLI) | payer MEDICARE, SELFPAY ==
[2022-08-24 09:28] LABS: Hemoglobin A1C 6.5 % (<5.7)
[2022-08-24 09:36] LABS: Calculated LDL 65 mg/dL (<100); Cholesterol 140 mg/dL (<200); HDL Cholesterol 46 mg/dL (40-60); Triglyceride 145 mg/dL (<150)
== END 2022-08-24 03:16 | disposition home or self-care (01) ==
LOC: LBO 03:15
PROVIDERS: PCP Family Medicine; Visit Provider Family Medicine
DX: E11.9 Type 2 diabetes mellitus without complications (principal); I10 Essential (primary) hypertension; Z00.00 Encounter for general adult medical examination without abnormal findings
CPT/HCPCS: 36415; 80061; 83036

== ENCOUNTER 2023-09-28 04:45 | Inpatient (IN) | payer MEDICARE, SELFPAY ==
[2023-09-28] VITALS (99 sets, daily range): BP systolic 126–229; BP diastolic 71–185; PULSE 77–139; RESP 5–32; TEMP 36.4–37.3; O2SAT 1–100
--- NOTE | 2023-09-28 04:45 | RT.EKG_ITS ---
APPROVED REPORT Exam: Resting ECG Reason for Exam: CHEST PAIN Patient Location: E HR:102 bpm ECG Measurements Heart Rate 102 AXIS CA [id number] P [id number] QRSd 159 QRS 128 QT 420 T 9 QTc 548 Conclusion Atrial fibrillation...? atrial activity RBBB and LPFB...QRSd >120mS, axis(90,210) no ST segment or T wave abnormalities to suggest occlusive M
--- NOTE | 2023-09-28 04:45 | DI.CT_ITS ---
Exam(s) CT CHEST PE CTA EXAM: CT CHEST PE CTA CLINICAL HISTORY: hypoxia, afib. TECHNIQUE: Imaging Protocol: CT angiography of the chest was performed using pulmonary embolus lesly col. Multi planar reconstructions were performed. CONTRAST MATERIAL: Intravenous: Omnipaque 350 Contrast volume: 100 cc COMPARISON: CT CT CHEST PE CTA from 07/30/2019 CR XR CHEST 2V PA LATERAL from 07/30/2019 CR,XR XR PORTABLE CHEST AP from 09/28/2023 FINDINGS: CHEST: PULMONARY ARTERIES: There are no intraluminal filling defects to suggest acute pulmonary emboli. LUNGS: There are moderate size bilateral pleural effusions evident.. No confluent infiltrates. MEDIASTINUM: There is no hilar nor mediastinal adenopathy. Visualized thyroid unremarkable. CARDIAC: Mild cardiomegaly. No pericardial effusion.Caliber of the thoracic aorta is within normal l imits. Mild coronary artery calcification. There is no significant shift of the interventricular sep raymond. PARTIALLY VISUALIZED UPPERMOST ABDOMEN: No adrenal masses. No splenomegaly. Gallbladder surgically absent. OSSEOUS: No significant osseous lesions.No fractures evident.. IMPRESSION: 1. There are symmetrical moderate size bilateral pleural effusions..No confluent infiltrates. Mild i ncreased markings in the lower lobes is probably related to under inflation. 2. Cardiomegaly. No pericardial effusion. RADIATION DOSE DELIVERED: 582.94mGy.cm Total DLP DATA REPOSITORY: All CT scans at this facility are submitted to the National Radiology Data Registry (NRDR) Dose Index Registry (DIR) with the [employer] ([employer]). RADIATION OPTIMIZATION: All CT scans at this facility use at least one of these dose optimization te chniques: automated exposure control; mA and/or kV adjustment per patient size (includes targeted exa ms where dose is matched to clinical indication); or iterative reconstruction.
--- NOTE | 2023-09-28 04:45 | DI.RAD_ITS ---
Exam(s) XR PORTABLE CHEST AP EXAM: XR PORTABLE CHEST AP CLINICAL HISTORY: short of breath. TECHNIQUE: 2D digital imaging was performed. COMPARISON: CR XR CHEST 2V PA LATERAL from 07/30/2019 FINDINGS: Single AP portable view. Mild cardiomegaly. The mediastinum is not widened. Mild pulmonary venous hypertension pattern. No airspace pulmonary edema. No obvious pleural effusio ns. IMPRESSION: Mild cardiomegaly. Pulmonary venous hypertension pattern. Recommend nonportable PA and lateral views when clinically possible. DATA REPOSITORY: RADIATION DOSE DELIVERED:
[2023-09-28] MEDS: Albuterol/Ipratropium 3 ML UPD VIAL (04:58)
--- NOTE | 2023-09-28 04:58 | W.ED.GENAD ---
HPI General Mode of arrival: ambulatory. Date/Time Provider Initiated Documentation: 09/28/23 04:51. Information obtained by: patient, family and old records reviewed. HPI Narrative: 83yo M with hx of DM, GERD, denies prior cardiac history including CHF/GA/afib, presenting for shortness of breath and chest pain. Has felt persistently short of breath since COVID last July, this morning woke more short of breath than usual and with dull substernal chest pain which is new. Non-radiating. No back pain. Ambulated into department from parking lot. He is otherwise in his usual state of health with no fevers, chills, rash, nausea, vomiting, abdominal pain, numbness, tingling, weakness, headache, or other concerns. Related Data Home Medications Medication Instructions Recorded Confirmed glimepiride 4 mg tablet 4 mg PO DAILY 07/23/19 09/28/23 latanoprost 0.005 % eye drops 1 drp ophthalmic (eye) DAILY 07/23/19 09/28/23 lisinopril 10 mg tablet 10 mg PO DAILY 07/23/19 09/28/23 loratadine 10 mg tablet 10 mg PO DAILY 07/23/19 09/28/23 meloxicam 15 mg tablet 15 mg PO DAILY 07/23/19 09/28/23 metformin 1,000 mg tablet 1,000 mg PO BID 07/23/19 09/28/23 methocarbamol 750 mg tablet 750 mg PO TID PRN 07/23/19 09/18/19 mometasone 50 mcg/actuation nasal 1 spray intranasal BID 07/23/19 09/28/23 spray (Nasonex) omeprazole 20 mg tablet,delayed 20 mg PO DAILY 07/23/19 09/28/23 release triamcinolone acetonide 0.1 % 1 applic topical DAILY 07/23/19 09/28/23 topical cream Lactobacillus acidophilus 100 mg PO DAILY #30 caps 07/31/19 09/28/23 ascorbate calcium (vitamin C) 500 500 mg PO DAILY 08/03/19 09/28/23 mg tablet multivitamin 1 cap PO DAILY 08/03/19 09/28/23 Previous Rx's Medication Instructions Recorded Lactobacillus acidophilus 100 mg PO DAILY #30 caps 07/31/19 Allergies Allergy/AdvReac Type Severity Reaction Status Date / Time Penicillins Allergy Unverified 09/28/23 04:57 General Stated Complaint: SOB XIOMARA: 2 Review of Systems Narrative: see HPI Exam Narrative Exam Narrative: General: Alert, well nourished. Head: Normocephalic, atraumatic Neck: Trachea midline, ?Neck supple. ENT: ?MMM.? Cardiac: ?RRR, no murmurs appreciated Resp: Expiratory wheeze diffusely. Speaking in in 4-5 word sentences. No increased work of breathing. Abd: ?Soft, non-distended, nontender : ?No suprapubic tenderness. Extremities: ?No deformities.? No peripheral edema. Neurologic: GCS 15. ? Moves all extremities freely against gravity Course Vital Signs Vital signs: Vital Signs Temperature 36.5 C 09/28/23 04:48 Pulse 101 H 09/28/23 04:48 Respiratory Rate 26 H 09/28/23 04:48 Blood Pressure 200/185 H 09/28/23 04:48 Pulse Oximetry 95 09/28/23 04:48 Temperature 36.5 C 09/28/23 04:48 Temperature Source Tympanic 09/28/23 04:48 Pulse 101 H 09/28/23 04:48 Respiratory Rate 23 09/28/23 04:49 Respiratory Effort Labored 09/28/23 04:49 Blood Pressure 200/185 H 09/28/23 04:48 Blood Pressure Position Sitting 09/28/23 04:48 Pulse Oximetry 95 09/28/23 04:48 Pain Level 0 09/28/23 04:48 Medical Decision Making 83yo M with hx of DM, GERD, denies prior cardiac history including CHF/GA/afib, on lisinopril for BP, presenting for shortness of breath and chest pain. Has felt persistently short of breath since COVID last July, this morning woke more short of breath than usual and with dull substernal chest pain which is new. Hypertensive on arrival 203/103, mildly tachycardiac. Initial O2 sat on room air after ambulating into department in the 70's, rapidly returned to 95% once he sat down. Diffuse expiratory wheeze on exam. Given three stacked duonebs, patient reports improvement in shortness of breath with this. SBP down to 170's after breathing treatment. Given severe hypertension and shortness of breath with hypoxia, concern for SCAPE, however patient satting well on room air without significantly increased work of breathing. Unknown baseline blood pressure, he is not on any antihypertensives. Shortness of breath does not appear to have come on suddenly but rather been gradually present and attributed to COVID, post-COVID. Would not start nitro gtt or BIPAP at this time, will monitor closely. Symptoms not consistent with aortic dissection. EKG afib (not present on most recent prior from 2019) and RBBB (present on prior), no ST segment or T wave abnormalities to suggest occlusive GA. Bedside echo with afib, globally reduced EF, RV not overtly dilated. Portable CXR with pulmonary edema on my view, agree with radiology read below. Will treat for likely new onset heart failure with 40mg IV lasix. Labs reviewed as below, CBC with mild anemia at 11.8, CMP with normal Cr, no significant electrolyte abnormalities, Mg slightly low (1.5). Initial troponin WNL. BNP markedly elevated at 10,230 consistent with heart failure. On reassessment he remains unable to tolerate minimal exertion, desats to mid 80's [facility], now with increased work of breathing. SBP back up to 200's. Started on BiPAP 07/31 with good effect. Considered nitro gtt but again symptoms appear to have had a more gradual onset. CT for PE independently reviewed, no large saddle embolus on my view, does have mild/moderate bilateral pleural effusions, agree with radiology read below. Discussed with hospitalist Dr. Oneal and accepted to ICU. Medical Records Medical records reviewed: Yes I reviewed the patient's medical records. Medical records narrative: most recent clinic visit available 09/18/19 Imaging Data Radiologic Study: Imaging: X-Ray Radiologist's impression: IMPRESSION: 1. No definite pulmonary embolus identified, within the limitations noted above. 2. Cardiomegaly. 3. Pleural effusions. Radiologic Study #2: Imaging: CT Scan Radiologist's impression: IMPRESSION: 1. No definite pulmonary embolus identified, within the limitations noted above. 2. Cardiomegaly. 3. Pleural effusions. Lab Data Lab results reviewed: Yes I reviewed the patient's lab results. Labs: Laboratory Tests Range/Units 09/28/23 04:55 WBC (4.4-10.8) 10^3/uL 9.51 RBC (4.36-5.78) 10^6/uL 4.14 L Hgb (13.5-17.5) g/dL 11.8 L Hct (40.0-50.0) % 37.5 L MCV (80-95) fL 91 MCH (27.0-33.0) pg 28.5 MCHC (32.0-36.0) % 31.5 L RDW (11.8-14.1) % 19.7 H Plt Count (130-400) 10^3/uL 149 MPV (8.0-11.0) fL 10.6 Immature Gran % 0.2 Neutrophils % 80.3 Lymphocytes % 9.6 Monocytes % 8.0 Eosinophils % 1.4 Basophils % 0.5 Nucleated RBC % (0.0-0.3) % 0.0 Absolute Neutrophils (1.2-6.7) 10^3/uL 7.64 H Absolute Lymphocytes (1.2-3.4) 10^3/uL 0.91 L Absolute Monocytes (0.1-0.8) 10^3/uL 0.76 Absolute Eosinophils (0.0-0.7) 10^3/uL 0.13 Absolute Basophils (0.0-0.2) 10^3/uL 0.05 Sodium (136-145) mmol/L 139 Potassium (3.5-5.1) mmol/L 3.8 Chloride (98-107) mmol/L 104 Carbon Dioxide (21.0-32.0) mmol/L 28.3 Anion Gap (3-11) mmol/L 6.7 BUN (7-18) mg/dL 26 H Creatinine (0.70-1.30) mg/dL 1.0 Est GFR (CKD-EPI 2020) (mL/min/1.73m2) 74.21 Glucose (74-106) mg/dL 223 H Calcium (8.5-10.1) mg/dL 8.7 Magnesium (1.8-2.4) mg/dL 1.5 L Total Bilirubin (0.2-1.0) mg/dL 1.6 H AST (15-37) U/L 17 ALT (16-63) U/L 23 Alkaline Phosphatase (46-116) U/L 81 Troponin I (< or =60) ng/L 57 NT-Pro-B Natriuret Pep (<300) pg/mL 37644 H Total Protein (6.4-8.2) g/dL 7.6 Albumin (3.4-5.0) g/dL 3.6 Quality:SDOH Health Related Social Needs: No Data to Display Critical Care Time Critical Care Time Critical Care Time: Yes Total Critical Care Time: 34 Attestation: Due to a high probability of clinically significant, life threatening deterioration, the patient required my highest level of preparedness to intervene emergently and I personally spent this critical care time directly and personally managing the patient. This critical care time included obtaining a history; examining the patient; pulse oximetry; ordering and review of studies; arranging urgent treatment with development of a management plan; evaluation of patient's response to treatment; frequent reassessment; and, discussions with other providers. This critical care time was performed to assess and manage the high probability of imminent, life-threatening deterioration that could result in multi-organ failure. It was exclusive of separately billable procedures PFSH All Active Problems (Updated 09/28/23 @ 07:02 by Shilpa Villarreal MD) Hypertension (Chronic) Acute hypoxemic respiratory failure (Acute) Acute congestive heart failure (Acute) Chronic back pain (Acute) Nonsustained paroxysmal supraventricular tachycardia (Acute) Pancreatitis (Acute) Bile leak, postoperative (Acute) S/P laparoscopic cholecystectomy (Acute) Cholelithiasis with acute on chronic cholecystitis (Acute) Acute gangrenous cholecystitis (Acute) Gallstones without obstruction of gallbladder (Acute) Hemochromatosis (Chronic) GERD (gastroesophageal reflux disease) (Chronic) Diabetes mellitus (Chronic) Glaucoma (Chronic) Medical History (Updated 09/28/23 @ 07:02 by Shilpa Villarreal MD) Positive cardiac stress test Surgical History (Updated 07/25/19 @ 17:18 by Jewels Pizano DO) Previous back surgery Social History Smoking/Tobacco Use Status: Never Smoking risk assessment performed?: Yes Drug use: Never Do you feel safe at home: Yes Do you feel safe in your relationship?: Yes Discharge Plan Disposition Patient Disposition: Admit to [facility] Condition: Critical Discharge Details Chief Complaint: SOB Clinical Impression: Acute congestive heart failure, Acute hypoxemic respiratory failure, Hypertension Primary Care Provider: Yumi Garrett ED Provider: Shilpa Villarreal Home Meds and New Rx's Prescriptions: No Action multivitamin Capsule 1 cap PO DAILY ascorbate calcium (vitamin C) 500 mg tablet 500 mg PO DAILY glimepiride 4 mg Tablet 4 mg PO DAILY latanoprost 0.005 % Drops 1 drp OPHTHALMIC (EYE) DAILY meloxicam 15 mg Tablet 15 mg PO DAILY triamcinolone acetonide 0.1 % Cream 1 applic TOPICAL DAILY methocarbamol 750 mg Tablet 750 mg PO TID PRN metformin 1,000 mg Tablet 1,000 mg PO BID lisinopril 10 mg Tablet 10 mg PO DAILY mometasone [Nasonex] 50 mcg/actuation [place],Non-Aerosol 1 spray INTRANASAL BID loratadine 10 mg Tablet 10 mg PO DAILY omeprazole 20 mg Tablet,Delayed Release (Dr/Ec) 20 mg PO DAILY Lactobacillus acidophilus Capsule 100 mg PO DAILY Qty: 30 0RF Rx Instructions: give 30 min before meal/food
[2023-09-28] MEDS: Albuterol/Ipratropium 3 ML UPD VIAL UPD ×2 (05:13)
[2023-09-28 05:15] LABS: Abs Immature Grans 0.02 10^3/uL (0.0-0.06); Absolute Basophil Count 0.05 10^3/uL (0.0-0.2); Absolute Eosinophil Count 0.13 10^3/uL (0.0-0.7); Absolute Lymphocyte Count 0.91 10^3/uL (1.2-3.4); Absolute Monocyte Count 0.76 10^3/uL (0.1-0.8); Absolute Neutrophil Count 7.64 10^3/uL (1.2-6.7); Basophils % 0.5; Eosinophils % 1.4; HCT 37.5 % (40.0-50.0); HGB 11.8 g/dL (13.5-17.5); Immature Grans % 0.2; Lymphocytes % 9.6; MCH 28.5 pg (27.0-33.0); MCHC 31.5 % (32.0-36.0); MCV 91 fL (80-95); MPV 10.6 fL (8.0-11.0); Neutrophils % 80.3; Platelet Count 149 10^3/uL (130-400); RBC 4.14 10^6/uL (4.36-5.78); RDW 19.7 % (11.8-14.1); RDW-SD 65.4 fL; WBC 9.51 10^3/uL (4.4-10.8)
--- NOTE | 2023-09-28 05:30 | DI.VRAD_ITS ---
PROCEDURE INFORMATION: Exam: XR Chest Exam date and time: 09/28/2023 5:05 AM Age: 83 years old Clinical indication: Shortness of breath TECHNIQUE: Imaging protocol: Radiologic exam of the chest. Views: 1 view. COMPARISON: CR XR CHEST 2V PA LATERAL 07/30/2019 7:46 AM FINDINGS: Lungs: Pulmonary vascular congestion. Pleural spaces: Cannot exclude small pleural effusions. Heart/Mediastinum: Enlarged cardiac silhouette. Bones/joints: Grossly unremarkable. IMPRESSION: Pulmonary vascular congestion with enlarged cardiac silhouette. Consider heart failure. Dictated and Authenticated by: Tiesha Ferraro MD. Ordering:GITA Massey MD
[2023-09-28 05:36] LABS: ALT 23 U/L (16-63); AST 17 U/L (15-37); Albumin 3.6 g/dL (3.4-5.0); Alkaline Phosphatase 81 U/L (46-116); Anion Gap 6.7 mmol/L (3-11); BUN 26 mg/dL (7-18); Bilirubin, Total 1.6 mg/dL (0.2-1.0); CO2 28.3 mmol/L (21.0-32.0); Calcium 8.7 mg/dL (8.5-10.1); Chloride 104 mmol/L (98-107); Estimated GFR 74.21 (mL/min/1.73m2); Glucose 223 mg/dL (74-106); Magnesium 1.5 mg/dL (1.8-2.4); NT-proBNP 10230 pg/mL (<300); Potassium 3.8 mmol/L (3.5-5.1); Sodium 139 mmol/L (136-145); Total Protein 7.6 g/dL (6.4-8.2); Troponin I 57 ng/L (< or =60)
[2023-09-28] MEDS: Furosemide 40 MG/4 ML VIAL IVP ×3 (05:49→15:51)
[2023-09-28] MEDS: Normal Saline - Diluent 50 ML VIAL IJ (06:06)
[2023-09-28] MEDS: Omnipaque 350 MG/ML 100 ML BTL IJ (06:06)
[2023-09-28] MEDS: Normal Saline Flush 10 ML SYR IVP ×2 (06:07→13:54)
--- NOTE | 2023-09-28 06:34 | DI.VRAD_ITS ---
PROCEDURE INFORMATION: Exam: CTA Chest With Contrast Exam date and time: 09/28/2023 5:55 AM Age: 83 years old Clinical indication: Pain; Shortness of breath and wheezing; Chest pressure; Patient HX: Hypoxia, afib TECHNIQUE: Imaging protocol: Computed tomographic angiography of the chest with contrast. Exam focused on the arteries. 3D rendering (Not supervised by radiologist): MIP and/or 3D reconstructed images were created by the technologist. Contrast material: OMNI 350; Contrast volume: 100 ml; Contrast route: INTRAVENOUS (IV); COMPARISON: CT CHEST PE CTA 07/30/2019 5:16 AM FINDINGS: Limitations: Mild motion artifact. Pulmonary arteries: No pulmonary embolus is appreciated. Aorta: No thoracic aortic aneurysm seen. Arterial calcifications. Lungs: Ground-glass opacities in the lower lobes, likely underinflation. Pleural spaces: Moderate bilateral pleural effusions. Heart: Cardiomegaly. Lymph nodes: Nonspecific mediastinal lymph nodes. Gallbladder and bile ducts: Cholecystectomy. Bones/joints: No acute pertinent abnormality seen. Soft tissues: No acute pertinent abnormality seen. IMPRESSION: 1. No definite pulmonary embolus identified, within the limitations noted above. 2. Cardiomegaly. 3. Pleural effusions. Dictated and Authenticated by: Tiesha Ferraro MD. Ordering:GITA Massey MD
[2023-09-28 06:57] LABS: COVID-19 PCR Negative (Negative); Influenza A PCR Negative (Negative); Influenza B PCR Negative (Negative); RSV PCR Negative (Negative)
[2023-09-28 07:02] LABS: Source Nasopharynx
--- NOTE | 2023-09-28 07:04 | HPE_ITS ---
Date of service: 09/28/23 Time of Service: 07:14 Assessment and Plan Assessment and plan (1) Acute congestive heart failure: Status: Suspected Assessment and plan: -Patient with pulmonary edema, pleural effusions, globally reduced EF on POCUS, and significantly elevated proBNP of greater than 10,000 -CTA PE did not show any pulmonary emboli -No leukocytosis, fever or cough to suggest infection -Since patient is now status post total of 80 mg IV Lasix in the emergency department -Will continue IV Lasix 40 mg twice daily -Strict I's and O's, daily weights -Formal echo ordered, will follow-up results -Troponin negative, EKG without any ST elevations, ST depressions or T wave inversions Qualifiers: Heart failure type: systolic Qualified Code(s): I50.21 - Acute systolic (congestive) heart failure (2) Pleural effusion: Status: Acute Assessment and plan: - Secondary to above (3) Pulmonary edema: Status: Acute Assessment and plan: - Secondary to above (4) Acute hypoxemic respiratory failure: Status: Acute Assessment and plan: - Secondary to above -Was initially on BiPAP but has had significant urine output -Currently on 3 L nasal cannula -Wean O2 as to (5) Bilirubinemia: Status: Acute Assessment and plan: - Likely secondary to vascular congestion due to presumed new HFrEF as noted above (6) New onset a-fib: Status: Acute Assessment and plan: - Unclear, but may be secondary to new HFpEF as noted above -Will start on Lovenox, likely transition to Eliquis prior to discharge -Will monitor heart rate if remains elevated despite good urine output will initiate rate control (7) Hypertension: Status: Chronic Assessment and plan: - Continue home lisinopril (8) GERD (gastroesophageal reflux disease): Status: Chronic Assessment and plan: - Continue home PPI (9) Diabetes mellitus: Status: Chronic Assessment and plan: - Hold home glimepiride and metformin -Start sensitive sliding scale insulin, carb consistent diet History of Present Illness History of Present Illness Chief Complaint: Shortness of breath and chest pain Narrative: 83-year-old male with past medical history of NIDDM, GERD, hypertension who presents to the emergency department complaints of shortness of breath and chest pain. Patient states that he has felt persistently short of breath since having COVID in July 2023, however this morning he woke up significantly more short of breath with abrupt substernal chest pain which is new for him he describes it as dull, achy without any radiation to his neck, arm or back. He denies any headache, lightheadedness, dizziness, fever, chills, cough, nausea vomiting diarrhea or constipation. In the emergency department he was noted as being tachycardic with a pulse of about 100, blood pressure was 200/185, respiratory rate was in the high 20s, and his initial oxygen saturation was 95% on room air. CBC and CMP were unremarkable, however patient had a mildly elevated bilirubin of 1.6, negative troponin, but did have a proBNP of 10,230. Chest x-ray showed pulmonary vascular congestion with enlarged cardiac silhouette, this prompted a CTA PE which did not show any pulmonary emboli but did show cardiomegaly and pleural effusions. Which point patient was given a total of 80 mg IV Lasix in the emergency department was reported to have good urine output, he was also placed on BiPAP for pressure support and work of breathing. POCUS in the emergency department showed globally reduced EF, and EKG showed A-fib which was not present on most recent EKG in 2019. At which time emergency room physician paged hospitalist for admission for patient with presumed new HFpEF, A-fib, pulmonary edema requiring ICU admission for BiPAP. Review of Systems All systems reviewed & are unremarkable except as noted in HPI and below PFSH All Active Problems (Updated 09/28/23 @ 07:24 by Elvis Oneal MD) Bilirubinemia (Acute) Pleural effusion (Acute) Pulmonary edema (Acute) New onset a-fib (Acute) Hypertension (Chronic) Acute hypoxemic respiratory failure (Acute) Chronic back pain (Acute) Nonsustained paroxysmal supraventricular tachycardia (Acute) Pancreatitis (Acute) Bile leak, postoperative (Acute) S/P laparoscopic cholecystectomy (Acute) Cholelithiasis with acute on chronic cholecystitis (Acute) Acute gangrenous cholecystitis (Acute) Gallstones without obstruction of gallbladder (Acute) Hemochromatosis (Chronic) GERD (gastroesophageal reflux disease) (Chronic) Diabetes mellitus (Chronic) Glaucoma (Chronic) Medical History (Updated 09/28/23 @ 07:24 by Elvis Oneal MD) Positive cardiac stress test Surgical History (Updated 07/25/19 @ 17:18 by Jewels Pizano DO) Previous back surgery Social History Smoking/Tobacco Use Status: Never Smoking risk assessment performed?: Yes Drug use: Never Do you feel safe at home: Yes Do you feel safe in your relationship?: Yes Meds Allergies and Home Medications Allergies Allergy/AdvReac Type Severity Reaction Status Date / Time Penicillins Allergy Unverified 09/28/23 04:57 Home Medications Medication Instructions Recorded Confirmed Type glimepiride 4 mg tablet 4 mg PO DAILY 07/23/19 09/28/23 History latanoprost 0.005 % eye drops 1 drp ophthalmic (eye) DAILY 07/23/19 09/28/23 History lisinopril 10 mg tablet 10 mg PO DAILY 07/23/19 09/28/23 History loratadine 10 mg tablet 10 mg PO DAILY 07/23/19 09/28/23 History meloxicam 15 mg tablet 15 mg PO DAILY 07/23/19 09/28/23 History metformin 1,000 mg tablet 1,000 mg PO BID 07/23/19 09/28/23 History methocarbamol 750 mg tablet 750 mg PO TID PRN 07/23/19 09/18/19 History mometasone 50 mcg/actuation nasal 1 spray intranasal BID 07/23/19 09/28/23 History spray (Nasonex) omeprazole 20 mg tablet,delayed 20 mg PO DAILY 07/23/19 09/28/23 History release triamcinolone acetonide 0.1 % 1 applic topical DAILY 07/23/19 09/28/23 History topical cream Lactobacillus acidophilus 100 mg PO DAILY #30 caps 07/31/19 09/28/23 Rx ascorbate calcium (vitamin C) 500 500 mg PO DAILY 08/03/19 09/28/23 History mg tablet multivitamin 1 cap PO DAILY 08/03/19 09/28/23 History Exam Narrative Exam Narrative: Well-appearing older gentleman laying in bed in no acute distress, 3 L nasal cannula in place, ANO x 4, heart irregularly irregular, rate about 110 bpm, lungs with diffuse crackles throughout, abdomen soft, nontender, nondistended, no peripheral edema noted Results Labs 09/28/23 04:55 09/28/23 04:55 Labs: Laboratory Results - last 24 hr 02/03/24 02/03/24 04:55 06:15 WBC 9.51 RBC 4.14 L Hgb 11.8 L Hct 37.5 L MCV 91 MCH 28.5 MCHC 31.5 L RDW 19.7 H Plt Count 149 MPV 10.6 Immature Gran % 0.2 Neutrophils % 80.3 Lymphocytes % 9.6 Monocytes % 8.0 Eosinophils % 1.4 Basophils % 0.5 Nucleated RBC % 0.0 Absolute Neutrophils 7.64 H Absolute Lymphocytes 0.91 L Absolute Monocytes 0.76 Absolute Eosinophils 0.13 Absolute Basophils 0.05 Sodium 139 Potassium 3.8 Chloride 104 Carbon Dioxide 28.3 Anion Gap 6.7 BUN 26 H Creatinine 1.0 Est GFR (CKD-EPI 2020) 74.21 Glucose 223 H Calcium 8.7 Magnesium 1.5 L Total Bilirubin 1.6 H AST 17 ALT 23 Alkaline Phosphatase 81 Troponin I 57 NT-Pro-B Natriuret Pep 85705 H Total Protein 7.6 Albumin 3.6 COVID-19 Source Nasopharynx SARS-CoV-2 (PCR) Negative Influenza Type A (PCR) Negative Influenza Type B (PCR) Negative RSV (PCR) Negative Last Vital Signs Temp 97.7 F 09/28/23 04:48 Pulse 125 H 09/28/23 06:24 Resp 25 H 09/28/23 06:24 BP 223/145 H 09/28/23 06:16 Pulse Ox 100 09/28/23 06:24 Time Spent Time spent with Patient: 55-74 minutes (60 minutes of critical care time spent with patient with new onset HFpEF acute hypoxic respiratory failure requiring BiPAP) Time was spent: preparing to see the patient(eg.review tests), obtaining and/or reviewing separately otained hiistory, ordering medications,tests, procedures, referring, communicating with other health senior care assistant, indepentently interpreting results, counseling the patient and care coordination
--- NOTE | 2023-09-28 08:35 | W.PC.ACHO ---
Registration Status: ADM IN Primary Language: Preferred Language: ED Information & Data Chief Complaint SOB 09/28/23 04:58 Triage Note Pt with COVID 08/23. 09/28/23 04:48 reports ongoing cough since then. This morning pt woke up short of breath and c/o CP. After wallkinf =g into ED and into room pts oxygen SAT 72% on Ra. O2 came up to 92 once rested Medical / Surgical History (Last Updated 07/29/19 @ 21:10 by Jewels Pizano DO) Positive cardiac stress test (Last Updated 07/25/19 @ 17:18 by Jewels Pizano DO) Previous back surgery Most Recent Vital Signs Temperature 36.6 C 09/28/23 07:28 Temperature Source Tympanic 09/28/23 04:48 Pulse 77 09/28/23 07:17 Pulse 111 H 09/28/23 07:20 Respiratory Rate 20 09/28/23 07:20 Respiratory Effort Labored 09/28/23 04:49 Blood Pressure 229/184 H 09/28/23 07:17 Blood Pressure Mean 199 09/28/23 07:17 Blood Pressure Position Sitting 09/28/23 04:48 Pulse Oximetry 94 09/28/23 07:56 Oxygen Delivery Method Nasal Cannula 09/28/23 07:56 Oxygen Flow Rate 3 09/28/23 07:56 Fraction of Inspired Oxygen (FIO2) 28 09/28/23 07:56 Pain Level 0 09/28/23 07:28 Comment patient on BiPAP 09/28/23 06:16 Allergies Penicillins Allergy (Unverified 09/28/23 04:57) Active Medications Generic Name Dose Route Start Last Admin Trade Name Freq PRN Reason Stop Dose Admin Sodium Chloride 0 ml 09/28/23 06:07 09/28/23 06:07 Normal Saline Flush 10 Ml Syr IVP 10 ml PRN PRN Administration IV IV Catheter Type [Left Peripheral IV Antecubital] IV Catheter Gauge [Left 18 Antecubital] Diet Orders Category Date Time Status Diabetes Consistent CHO/Heart Healthy [DIET] Nutrition 09/28/23 Breakfast Active Diagnostics 09/28/23 09/28/23 09/28/23 Range/Units 07:54 06:15 04:55 WBC 9.51 (4.4-10.8) 10^3/uL RBC 4.14 L (4.36-5.78) 10^6/uL Hgb 11.8 L (13.5-17.5) g/dL Hct 37.5 L (40.0-50.0) % MCV 91 (80-95) fL MCH 28.5 (27.0-33.0) pg MCHC 31.5 L (32.0-36.0) % RDW 19.7 H (11.8-14.1) % Plt Count 149 (130-400) 10^3/uL MPV 10.6 (8.0-11.0) fL Immature Gran % 0.2 Neutrophils % 80.3 Lymphocytes % 9.6 Monocytes % 8.0 Eosinophils % 1.4 Basophils % 0.5 Nucleated RBC % 0.0 (0.0-0.3) % Absolute Neutrophils 7.64 H (1.2-6.7) 10^3/uL Absolute Lymphocytes 0.91 L (1.2-3.4) 10^3/uL Absolute Monocytes 0.76 (0.1-0.8) 10^3/uL Absolute Eosinophils 0.13 (0.0-0.7) 10^3/uL Absolute Basophils 0.05 (0.0-0.2) 10^3/uL Sodium 139 (136-145) mmol/L Potassium 3.8 (3.5-5.1) mmol/L Chloride 104 (98-107) mmol/L Carbon Dioxide 28.3 (21.0-32.0) mmol/L Anion Gap 6.7 (3-11) mmol/L BUN 26 H (7-18) mg/dL Creatinine 1.0 (0.70-1.30) mg/dL Est GFR (CKD-EPI 2020) 74.21 (mL/min/1.73m2) Glucose 223 H (74-106) mg/dL Calcium 8.7 (8.5-10.1) mg/dL Magnesium 1.5 L (1.8-2.4) mg/dL Total Bilirubin 1.6 H (0.2-1.0) mg/dL AST 17 (15-37) U/L ALT 23 (16-63) U/L Alkaline Phosphatase 81 (46-116) U/L Troponin I Pending 57 (< or =60) ng/L NT-Pro-B Natriuret Pep 93455 H (<300) pg/mL Total Protein 7.6 (6.4-8.2) g/dL Albumin 3.6 (3.4-5.0) g/dL COVID-19 Source Nasopharynx SARS-CoV-2 (PCR) Negative (Negative) Influenza Type A (PCR) Negative (Negative) Influenza Type B (PCR) Negative (Negative) RSV (PCR) Negative (Negative) [id number] Documentation Fingerstick Glucose Start: 09/28/23 07:21 Freq: AC & HS Status: Active Protocol: Activity Type Activity Date Activity User E-sign Co-sign Detail Recorded Client Recorded Date Recorded By Document 09/28/23 07:37 BKG DAEMON(3) [id number] 09/28/23 07:53 BKG DAEMON(4) Intake and Output - 24 Hour Total 09/28/23 04:45 thru 09/28/23 07:34 Output Total 1900 Balance -1900 Weight 101.2 kg Output: Urine 1900 Falls Risk Assessment History of Falls No History 09/28/23 04:49 Fall Total Score 0 09/28/23 04:49 Level of Risk Standard/Low Risk 09/28/23 04:49 Problems (Last Updated 07/29/19 @ 21:10 by Jewels Pizano DO) Bilirubinemia (Acute) Pleural effusion (Acute) Pulmonary edema (Acute) New onset a-fib (Acute) Hypertension (Chronic) Acute hypoxemic respiratory failure (Acute) GERD (gastroesophageal reflux disease) (Chronic) Diabetes mellitus (Chronic) v v v v v v v v v Sending and/or Receiving Nurses: Please use comment section below to note any information pertinent to the patient hand-off not included above. Information / Comments: Report received from: Claudia Delvalle RN
--- NOTE | 2023-09-28 08:44 | NUR.NOTE ---
Patient arrives on unit at 08:00. accompanies patient. RN learns that had COVID on August 26, 2023 and had never been tested again and is coughing in room. RN call nurse supervisor of research who tests patient's for COVID. Result of test is positive COVID for . Nurse supervisor of research is informed of result. Vp Lab tells RN that is past period where she could pass COVID to others and may visit with mask in patient's room.Nursing Note:
--- NOTE | 2023-09-28 08:52 | NUR.NOTE ---
Patient is uncomfortable on 3 liters humidified via nasal cannula. Patient is placed on BIPAP at 21% FIO2. customer service technician draws patient's troponin.Nursing Note:
--- NOTE | 2023-09-28 08:53 | NUR.NOTE ---
is informed she may visit with patient but will have to wear a mask. Patient leaves ICU to get something to eat but will be back.Nursing Note:
--- NOTE | 2023-09-28 08:54 | INITIAL_ITS ---
Date of service: 09/28/23 Time of Service: 08:54 Care Management Initial Assmt Initial Assessment REASON FOR HOSPITALIZATION:: Acute CHF, acute hypoxic respiratory failure PREVIOUS FUNCTIONAL STATUS/SOCIAL/FAMILY SUPPORTS:: Jemal lives in [facility] with his , Modesta. They have two children, one who lives in [place], and one who lives locally. He and his moved to [place] after retiring, about 8 years ago, and reports that he has been enjoying his [place] [facility]. He and Modesta live on the main floor of their house, and they rent the upstairs out. He is independent at baseline. CURRENT FUNCTIONAL STATUS:: Jemal was sitting up in bed when CM met with him. He stated that he feels a little better now than he did before. He remains on 2LO2 currently; he does not have supplemental O2 at home. He stated that he is hoping to return home tomorrow, but is unsure if he will be ready for discharge. He reported that the last time he was in the hospital, he expected to only be there for a day or two, and he was admitted for nine days. He stated that it was for his gallbladder removal surgery. Jemal reported that he is very independent at baseline, and he and his try to go out for a walk every day, depending on the weather. Per report, he is scheduled to have an echo on Saturday, when it is available. CM will continue to follow. ADVANCE DIRECTIVES:: On file; Modesta listed as [facility]. COLST on file. Has patient been provided with info about the portal/API?: Yes Did the patient sign up for the portal?: No CODE STATUS:: DNR/DNI INSURANCE COVERAGE / FINANCIAL ISSUES:: [facility]. [employer] [facility] supplement. CURRENT HOME/COMMUNITY SERVICES/EQUIPMENT:: No known equipment or services PRIMARY CARE PHYSICIAN:: Yumi Garrett POTENTIAL DISCHARGE NEEDS:: Evaluations for further needs, follow up appointments. PATIENT/FAMILY EDUCATION NEEDS:: Review discharge instructions and limitations, discussion of self care needs including ask me three. ANTICIPATED BARRIERS TO DISCHARGE:: None identified. TRANSPORTATION:: Via private vehicle by his . PLAN:: Anticipate Jemal will return home once medically cleared. His will drive him home via private vehicle. He will follow up with his PCP and discharge plan of care. CM will continue to follow. PFSH All Active Problems (Updated 09/28/23 @ 07:24 by Elvis Oneal MD) Bilirubinemia (Acute) Pleural effusion (Acute) Pulmonary edema (Acute) New onset a-fib (Acute) Hypertension (Chronic) Acute hypoxemic respiratory failure (Acute) Chronic back pain (Acute) Nonsustained paroxysmal supraventricular tachycardia (Acute) Pancreatitis (Acute) Bile leak, postoperative (Acute) S/P laparoscopic cholecystectomy (Acute) Cholelithiasis with acute on chronic cholecystitis (Acute) Acute gangrenous cholecystitis (Acute) Gallstones without obstruction of gallbladder (Acute) Hemochromatosis (Chronic) GERD (gastroesophageal reflux disease) (Chronic) Diabetes mellitus (Chronic) Glaucoma (Chronic) Medical History (Updated 09/28/23 @ 07:24 by Elvis Oneal MD) Positive cardiac stress test Surgical History (Updated 07/25/19 @ 17:18 by Jewels Pizano DO) Previous back surgery Social History Smoking/Tobacco Use Status: Never Smoking risk assessment performed?: Yes Drug use: Never Housing: house Do you feel safe at home: Yes Do you feel safe in your relationship?: Yes SDOH(Care Management) Screening Will the Patient Participate in the Screening?: Unable to obtain
[2023-09-28] MEDS: Metoprolol 25 MG TAB PO ×2 (09:04→19:43)
[2023-09-28] MEDS: Lisinopril 10 MG TAB PO (09:05)
[2023-09-28] MEDS: Loratidine 10 MG TAB PO (09:05)
[2023-09-28] MEDS: Meloxicam 15 MG TAB PO (09:05)
[2023-09-28] MEDS: Enoxaparin 40 MG/0.4 ML SYR SC (09:07)
[2023-09-28] MEDS: Insulin Aspart 300 UNITS/3 ML PEN SC ×3 (09:15→17:04)
--- NOTE | 2023-09-28 09:22 | NUR.NOTE ---
MD arroyo not placing a waterman catheter since patient is voiding easily on his own and in substantial amounts.Nursing Note:
[2023-09-28 09:23] LABS: Troponin I < 50 ng/L (< or =60)
--- NOTE | 2023-09-28 09:23 | NUR.NOTE ---
RN assists patient in ordering breakfast.Nursing Note:
--- NOTE | 2023-09-28 14:30 | NUR.NOTE ---
Patient meets with [employer] Con[employer].Nursing Note:
[2023-09-28] MEDS: MAGNESIUM SULFATE 2 GM/50 ML BAG IVPB (15:51)
[2023-09-29] VITALS (21 sets, daily range): BP systolic 110–141; BP diastolic 64–108; PULSE 73–97; RESP 16–26; TEMP 35.6–37.1; O2SAT 92–98
[2023-09-29 08:13] LABS: Abs Immature Grans 0.03 10^3/uL (0.0-0.06); Absolute Basophil Count 0.03 10^3/uL (0.0-0.2); Absolute Eosinophil Count 0.08 10^3/uL (0.0-0.7); Absolute Lymphocyte Count 1.01 10^3/uL (1.2-3.4); Absolute Monocyte Count 1.03 10^3/uL (0.1-0.8); Absolute Neutrophil Count 5.77 10^3/uL (1.2-6.7); Basophils % 0.4; HCT 35.7 % (40.0-50.0); HGB 11.8 g/dL (13.5-17.5); Immature Grans % 0.4; Lymphocytes % 12.7; MCH 28.7 pg (27.0-33.0); MCHC 33.1 % (32.0-36.0); MCV 87 fL (80-95); MPV 10.5 fL (8.0-11.0); Neutrophils % 72.5; Platelet Count 147 10^3/uL (130-400); RBC 4.11 10^6/uL (4.36-5.78); WBC 7.95 10^3/uL (4.4-10.8)
[2023-09-29 08:29] LABS: Anion Gap 9.9 mmol/L (3-11); BUN 30 mg/dL (7-18); CO2 29.1 mmol/L (21.0-32.0); CREATININE 0.9 mg/dL (0.70-1.30); Chloride 100 mmol/L (98-107); Estimated GFR 84.22 (mL/min/1.73m2); Glucose 140 mg/dL (74-106); Magnesium 1.9 mg/dL (1.8-2.4); Potassium 3.2 mmol/L (3.5-5.1); Sodium 139 mmol/L (136-145)
--- NOTE | 2023-09-29 09:15 | W.PM.PROGNOT ---
Date of Service Date of service: 09/29/23 Time of Service: 09:15 Assessment and Plan Assessment and plan (1) Acute hypoxemic respiratory failure: Status: Acute Assessment and plan: In setting of acute CHF and B pleural effusions. Doing much better - off of BIPAP, now on RA. Continue diuresis. v belt coverer to PO furosemide. Obtain a formal echocardiogram in am. (2) Acute congestive heart failure: Status: Acute Assessment and plan: W/ h/o recent COVID-19 infection, concern for cardiomyopathy due to that. Improved with diuresis. Continue home beta blockers. HR mostly controlled, but consider increasing metoprolol and changing over to long acting formulation. Await a formal echo. Qualifiers: Heart failure type: systolic Qualified Code(s): I50.21 - Acute systolic (congestive) heart failure (3) Pleural effusion: Status: Acute Assessment and plan: As above (4) Pulmonary edema: Status: Acute Assessment and plan: As above (5) New onset a-fib: Status: Acute Assessment and plan: Patient appears to have had a h/o paroxysmal SVT and for this he was already on metoprolol. He is mostly rate controlled. Consider anticoagulation. Discussed with the patient: he has no h/o hemodynamically significant bleeding, but would like me to talk to his first. (6) Bilirubinemia: Status: Acute Assessment and plan: Suspect passive congestion of the liver. Recheck LFTs in am. (7) Hypertension: Status: Chronic Assessment and plan: Consider resumption of home lisinopril. (8) GERD (gastroesophageal reflux disease): Status: Chronic Assessment and plan: Continue omeprazole. (9) Diabetes mellitus: Status: Chronic Assessment and plan: Continue to hold home glimepiride and metformin Continue SSI (10) Hypokalemia: Status: Acute Assessment and plan: Replete; recheck in am (11) DVT prophylaxis: Status: Acute Assessment and plan: SC enoxaparin (12) Discharge planning issues: Status: Acute Assessment and plan: DNR/DNI Downgrade to medical surgical floor. Anticipate discharge home tomorrow pm. Will need exercise oximetry prior to discharge. Subjective Subjective Interval history since last seen: Mr Watkins feels a lot better. Denied dizziness, CP, SOB, palpitatons, nausea. He states he is steady on his feet, does not use assistive devices, falls very rarely - only when doing outside work. Got off of oxygen - sitting up in a chair on RA this am. about 5 L of urine out. Has been in Afib, HR has been rate controlled. Exam Narrative Exam Narrative: General: Pleasant elderly male who is seen ambulating in the hallway and then in his room, A&Ox3, NAD HEENT: EOMI, MMM Heart: irregularly irregular rhythm, HR in low 100s, no m/r/g Lungs: crackles in B bases Abdomen: soft, nontender, nondistended Extremities: no edema BLEs Objective Last Vital Signs Temp 36.7 C 09/29/23 07:31 Pulse 85 09/29/23 07:31 Resp 16 09/29/23 07:31 BP 132/91 H 09/29/23 06:02 Pulse Ox 96 09/29/23 08:10 Laboratory Results - last 24 hr 09/28/23 09/29/23 08:55 08:05 WBC 7.95 RBC 4.11 L Hgb 11.8 L Hct 35.7 L MCV 87 D MCH 28.7 MCHC 33.1 RDW 20.0 H Plt Count 147 MPV 10.5 Immature Gran % 0.4 Neutrophils % 72.5 Lymphocytes % 12.7 Monocytes % 13.0 Eosinophils % 1.0 Basophils % 0.4 Nucleated RBC % 0.0 Absolute Neutrophils 5.77 Absolute Lymphocytes 1.01 L Absolute Monocytes 1.03 H Absolute Eosinophils 0.08 Absolute Basophils 0.03 Sodium 139 Potassium 3.2 L Chloride 100 Carbon Dioxide 29.1 Anion Gap 9.9 BUN 30 H Creatinine 0.9 Est GFR (CKD-EPI 2020) 84.22 Glucose 140 H Calcium 9.0 Magnesium 1.9 Troponin I < 50 Time Spent with Patient Time Spent with Patient: 35-49 minutes Time was spent: preparing to see the patient(eg.review tests), obtaining and/or reviewing separately otained hiistory, ordering medications,tests, procedures, referring, communicating with other health healthcare or medical, indepentently interpreting results, counseling the patient and care coordination
[2023-09-29] MEDS: Furosemide 40 MG/4 ML VIAL IVP (09:16)
[2023-09-29] MEDS: Meloxicam 15 MG TAB PO (09:17)
[2023-09-29] MEDS: Loratidine 10 MG TAB PO (09:17)
[2023-09-29] MEDS: Metoprolol 25 MG TAB PO ×2 (09:17→21:18)
[2023-09-29] MEDS: Enoxaparin 40 MG/0.4 ML SYR SC (09:17)
[2023-09-29] MEDS: Lisinopril 10 MG TAB PO (09:18)
[2023-09-29] MEDS: Normal Saline Flush 10 ML SYR IVP (09:31)
[2023-09-29] MEDS: Potassium Chloride 20 MEQ TABCR 40 MEQ PO (10:00)
[2023-09-29] MEDS: POTASSIUM CHLORIDE 20 MEQ/100 ML BAG 50 MEQ IVPB ×2 (10:00→11:54)
--- NOTE | 2023-09-29 11:35 | PHA.REVIEW2 ---
Pharmacy Admission Review Admission Clinical Review Admission Pharmacy Review: (Updated 09/29/23 @ 09:59 by Denise Godinez MD) Discharge planning issues (Acute) DVT prophylaxis (Acute) Hypokalemia (Acute) Bilirubinemia (Acute) Pleural effusion (Acute) Pulmonary edema (Acute) New onset a-fib (Acute) Acute hypoxemic respiratory failure (Acute) Acute congestive heart failure (Acute) Penicillins Allergy (Unverified 09/28/23 04:57) Resuscitation Status DNR/DNI Height 5 ft 8 in Weight 94 kg Comments Comments/Follow Ups: New onset Afib Pharmacy Admission Review Renal Dosing Renal Dosing: BUN 30 mg/dL (7-18) H 09/29/23 08:05 Creatinine 0.9 mg/dL (0.70-1.30) 09/29/23 08:05 Anticoagulation Anticoagulation: Hgb 11.8 g/dL (13.5-17.5) L 09/29/23 08:05 Hct 35.7 % (40.0-50.0) L 09/29/23 08:05 Plt Count 147 10^3/uL (130-400) 09/29/23 08:05 Creatinine 0.9 mg/dL (0.70-1.30) 09/29/23 08:05 Relevant Labs Relevant Labs: Sodium 139 mmol/L (136-145) 09/29/23 08:05 Potassium 3.2 mmol/L (3.5-5.1) L 09/29/23 08:05 Chloride 100 mmol/L (98-107) 09/29/23 08:05 Magnesium 1.9 mg/dL (1.8-2.4) 09/29/23 08:05 Cardiac Review Cardiac Review: Troponin I < 50 ng/L (< or =60) 09/28/23 08:55 NT-Pro-B Natriuret Pep 55030 pg/mL (<300) H 09/28/23 04:55 Comments Comments/Follow Ups: New onset Afib
[2023-09-29] MEDS: Insulin Aspart 300 UNITS/3 ML PEN SC ×3 (11:55→21:22)
[2023-09-29] MEDS: Furosemide 40 MG TAB PO (16:07)
[2023-09-30] VITALS (7 sets, daily range): BP systolic 99–157; BP diastolic 78–90; PULSE 68–100; RESP 16–20; TEMP 35–36.9; O2SAT 95–100
[2023-09-30 07:17] LABS: Abs Immature Grans 0.02 10^3/uL (0.0-0.06); Absolute Basophil Count 0.04 10^3/uL (0.0-0.2); Absolute Eosinophil Count 0.13 10^3/uL (0.0-0.7); Absolute Lymphocyte Count 1.06 10^3/uL (1.2-3.4); Absolute Monocyte Count 0.71 10^3/uL (0.1-0.8); Absolute Neutrophil Count 4.09 10^3/uL (1.2-6.7); Basophils % 0.7; Eosinophils % 2.1; Immature Grans % 0.3; Lymphocytes % 17.5; MCH 28.2 pg (27.0-33.0); MCHC 32.4 % (32.0-36.0); MCV 87 fL (80-95); MPV 11.4 fL (8.0-11.0); Monocytes % 11.7; Neutrophils % 67.7; Platelet Count 157 10^3/uL (130-400); RDW-SD 64.2 fL; WBC 6.05 10^3/uL (4.4-10.8)
[2023-09-30] MEDS: Loratidine 10 MG TAB PO (07:28)
[2023-09-30] MEDS: Meloxicam 15 MG TAB PO (07:28)
[2023-09-30] MEDS: Omeprazole 20 MG CAPCR PO (07:28)
[2023-09-30] MEDS: Furosemide 40 MG TAB PO ×2 (07:28→15:01)
[2023-09-30] MEDS: Metoprolol 25 MG TAB PO ×2 (07:28→19:45)
[2023-09-30] MEDS: Enoxaparin 40 MG/0.4 ML SYR SC (07:28)
[2023-09-30 07:37] LABS: ALT 24 U/L (16-63); AST 21 U/L (15-37); Albumin 3.2 g/dL (3.4-5.0); Alkaline Phosphatase 72 U/L (46-116); Anion Gap 6.2 mmol/L (3-11); BUN 28 mg/dL (7-18); Bilirubin, Total 2.2 mg/dL (0.2-1.0); CO2 30.8 mmol/L (21.0-32.0); Calcium 8.9 mg/dL (8.5-10.1); Chloride 102 mmol/L (98-107); Estimated GFR 74.21 (mL/min/1.73m2); Glucose 130 mg/dL (74-106); Magnesium 1.7 mg/dL (1.8-2.4); Potassium 3.5 mmol/L (3.5-5.1); Sodium 139 mmol/L (136-145); Total Protein 7.2 g/dL (6.4-8.2)
[2023-09-30 07:48] LABS: Bilirubin, Direct 0.4 mg/dL (0.0-0.2)
[2023-09-30] MEDS: Magnesium Chloride 64 MG TABCR PO ×2 (07:52→19:45)
[2023-09-30] MEDS: MAGNESIUM SULFATE 2 GM/50 ML BAG IVPB (07:52)
[2023-09-30] MEDS: Multivitamin TAB 1 TAB PO (07:52)
[2023-09-30] MEDS: Insulin Aspart 300 UNITS/3 ML PEN SC ×4 (07:52→21:24)
[2023-09-30] MEDS: Potassium Chloride 20 MEQ TABCR 40 MEQ PO (08:04)
[2023-09-30 08:18] LABS: Lab Add On Test DONE
[2023-09-30 08:41] LABS: TSH 3.43 uIU/mL (0.36-3.74)
--- NOTE | 2023-09-30 10:30 | DI.US_ITS ---
APPROVED REPORT EXAM: Comprehensive 2D, Doppler, and color-flow Echocardiogram Patient Location: In-Patient Room/Bed: 225 Abstract Maker: Dwain Hedrick RDCS (AE) Indications: global hypokinesis on POCUS, elevated pBNP, on BiPAP Conclusion 1. All chambers are moderately dilated. 2. Mild to moderate concentric LVH with moderate LV systolic dysfunction, EF 35-40%. Normal RV functi on. 3. Anatomically normal valves. Moderate MR; moderate to severe TR with moderate pulmonary hypertensio n. 4. No significant pericardial effusion. Wall motion Left Ventricle Left ventricle is borderline dilated. Left ventricular systolic function is moderately decreased. Mod erate concentric left ventricular hypertrophy. There is global hypokinesis of the left ventricle. The re is no ventricular septal defect visualized. LVEF is 35-38%. Right Ventricle Right ventricle is mildly dilated. Right ventricular systolic function is grossly normal. Atria Left atrium is moderately dilated. Right atrium is moderately dilated. The interatrial septum is inta ct with no evidence for an atrial septal defect. Aortic Valve The Aortic valve is mildly sclerotic. There is no aortic valvular stenosis. Trace aortic regurgitatio n. Mitral Valve Mitral valve leaflets are mildly thickened. No evidence of mitral valve stenosis. Moderate mitral reg urgitation. Tricuspid Valve The tricuspid valve is normal in structure. There is no tricuspid valve stenosis. Moderate to severe tricuspid regurgitation. The RVSP is 51.4mmHg. Pulmonic Valve The pulmonary valve is normal in structure. There is no pulmonic valvular stenosis. Mild pulmonic reg urgitation. Great Vessels The aortic root is normal in size. The ascending aorta is mildly dilated. Aortic arch is not well vis ualized. The IVC collapses <50% with inspiration. Pericardium There is no pericardial effusion. 2D Dimensions IVSD d PLAX 1.57 cm M: 0.6-1.2 Ao Root d 3.30 cm M: 3.1 - 3.7 LVPW d PLAX 1.56 cm M: 0.6 - 1.2 Ao Asc Diam d 3.64 cm M: 2.6 - 3.4 LVID d PLAX 5.75 cm M: 4.2 - 5.8 LVDs 4.77 cm M: 2.5 - 4.0 LV EF Teichholz 35.0 % FS 16.97 % LV EDV (Teich) 163.0 mL LV ESV (Teich) 106.0 mL Stroke Vol Index (Teich) 27.54 M-Mode TAPSE 1.23 cm (M/F) >1.7 Auto EF LV EDV A4C 206.5 mL LV EDV A2C 220.6 mL LV EDV BP 221.0 mL LV ESV A4C 130.3 mL LV ESV A2C 137.2 mL LV ESV BP 140.9 mL LVEF(%) A4C 36.9 % LVEF(%) A2C 37.8 % LVEF(%) BP 36.3 % LV SV A4C 76.2 ml LV SV A2C 83.4 ml LV SV BP 80.2 ml LV CO A4C 7.0 L/min LV CO A2C 7.1 L/min LV CO BP 7.0 L/min HR A4C 91.37 BPM HR A2C 85.11 BPM LV EDV Index (BP) LA Volume LA Length A4C 7.7 cm LA Length A2C 6.7 cm LA Area A4C s 30.87 cm2 LA Area A2C s 30.15 cm2 LA Vol A4C A-L 104.86 mL LA Vol A2C A-L 115.22 mL LA Vol Biplane A-L 118.0 mL LA Vol/BSA A4C A-L LA Vol/BSA A2C A-L LA Vol/BSA BP A-L 57.0 mL/m2 LA Vol A4C MOD 105.1 mL LA Vol A2C MOD 112.3 mL LA Vol BP MOD 115.5 mL RA Volume RA Area A4C 27.5 cm2 RA ESV A4C (A-L) 101.8mL RA Vol/BSA A4C A-L RA Length A4C 6.3 cm RA ESV A4C (MOD) 93.9mL LV Diastology MV E' medial 0.051 (>0.07 m/s) MV E Vmax 1.06 (0.4-1.3 m/s) MV E/E' MED 20.56 (<14) MV E' lateral 0.051 (>0.1 m/s) MV E/E' LAT 20.86 (<14) MV E' Average 0.051 m/s MV E/E'(average) 20.71 Aortic Valve AoV Vmax 1.24 m/s LVOT Vmax 0.78 m/s AoV Peak Grad 6.1 mmHg LVOT Peak Grad 2.4 mmHg AoV Area (Vmax) 2.05 cm2 LVOT VTI 0.136 m AoV VTI 0.238 m LVOT Mean Grad 1.3 mmHg AoV Mean Neymar. 0.88 m/s LVOT SV 44.46 mL AoV Mean Grad 3.5 mmHg LVOT Diam s 2.00 cm AoV Area (VTI) 1.87 cm2 Velocity Ratio 0.63 Mitral Valve MV DT 188 (160-240 msec) MR Vmax 4.68 m/s MV Vmax TIPS 1.07 m/s MR VTI 1.379 m MV Mean Grad 1.6 (<2mmHg) MR Peak Grad 87.8 mmHg MV VTI 0.271 m MR Mean Grad 57.7 mmHg Pulmonary Valve PV Vmax 0.81 (0.5-1.5 m/s) RVOT Vmax 0.47 m/s PV Peak Grad 2.6 mmHg RVOT Peak Gr. 0.9 mmHg PV Mean Neymar 0.58 m/s RVOT VTI 0.076 m PV Mean Grad 1.5 mmHg RVOT Mean Gr. 0.5 mmHg Tricuspid Valve RA Pressure 15.00 mmHg TR Vmax 3.02 m/s TR Peak Grad 36.4 mmHg RVSP (TR) 51.4 mmHg
--- NOTE | 2023-09-30 16:15 | RT.EKG_ITS ---
APPROVED REPORT Exam: Resting ECG Reason for Exam: chest pain Patient Location: I HR:92 bpm ECG Measurements Heart Rate 92 AXIS NM [id number] P [id number] QRSd 154 QRS 128 QT 422 T 31 QTc 523 Conclusion Atrial fibrillation...V-rate 81-104, irreg A-activity RBBB and LPFB...QRSd >120mS, axis(90,210) I have reviewed and interpreted ECG and agree with software generated interpretation.
--- NOTE | 2023-09-30 17:47 | W.PM.PROGNOT ---
Date of Service Date of service: 09/30/23 Time of Service: 17:47 Assessment and Plan Assessment and plan (1) Acute congestive heart failure: Status: Acute Assessment and plan: W/ h/o recent COVID-19 infection, concern for cardiomyopathy due to that. Cannot rule out ICMO/ underlying CAD, however. Echo w/ LVEF of 35-40%, RVSP of 51.4 mmHg, moderate MR, moderate to severe TR, moderately dilated chambers. Improved with diuresis. Continue home beta blockers, resume lisinopril and consider increase dose. Discussed starting entresto and jardiance with Dr Henderson who does not recommend it at this point. Importantly, the patient needs to have an GIRISH/cardioversion as well as a cardiac catheterization. For this, I have placed a transfer request with [facility] and am awaiting call back. Qualifiers: Heart failure type: systolic Qualified Code(s): I50.21 - Acute systolic (congestive) heart failure (2) Acute hypoxemic respiratory failure: Status: Resolved Assessment and plan: In setting of acute CHF and B pleural effusions. Doing much better - off of BIPAP, now on RA. Continue diuresis. mover helper to PO furosemide. Obtain a formal echocardiogram in am. (3) Pleural effusion: Status: Acute Assessment and plan: As above (4) Pulmonary edema: Status: Acute Assessment and plan: As above (5) New onset a-fib: Status: Acute Assessment and plan: Patient appears to have had a h/o paroxysmal SVT and for this he was already on metoprolol. He is mostly rate controlled. Agrees to anticoagulation, which I am starting with lovenox until he can have his procedures at [facility]. (6) Bilirubinemia: Status: Acute Assessment and plan: Suspect passive congestion of the liver. Recheck LFTs in am. (7) Hypertension: Status: Chronic Assessment and plan: Resume lisinopril. (8) GERD (gastroesophageal reflux disease): Status: Chronic Assessment and plan: Continue omeprazole. (9) Diabetes mellitus: Status: Chronic Assessment and plan: Continue to hold home glimepiride and metformin Continue SSI (10) Hypokalemia: Status: Resolved Assessment and plan: Recheck in am Replete magnesium (11) DVT prophylaxis: Status: Acute Assessment and plan: SC enoxaparin (therapeutic) (12) Discharge planning issues: Status: Acute Assessment and plan: DNR/DNI Awaiting call back from [facility] transfer center. Subjective Subjective Interval history since last seen: Mr Watkins is feeling a lot better. He is on RA, has a slight nonproductive cough. No dizziness, CP, SOB, nausea. Seen by cardiology, who recommends GIRISH, cardioversion, and a cardiac catheterization due to his new onset systolic CHF w/ LVEF of 35-40%. Exam Narrative Exam Narrative: General: Pleasant elderly male is seen with Dr Henderson, sitting comfortably in a chair, A&Ox3, on RA, no dyspnea/tachypnea/cyanosis HEENT: EOMI, MMM Heart: irregularly irregular rhythm, no m/r/g Lungs: CTAB Abdomen: soft, nontender, nondistended Extremities: no edema BLEs Objective Last Vital Signs Temp 35.0 C L 09/30/23 16:33 Pulse 91 H 09/30/23 16:33 Resp 18 09/30/23 16:33 BP 157/90 H 09/30/23 16:33 Pulse Ox 99 09/30/23 16:33 Laboratory Results - last 24 hr 09/30/23 09/30/23 05:35 05:52 WBC 6.05 RBC 3.90 L Hgb 11.0 L Hct 34.0 L MCV 87 MCH 28.2 MCHC 32.4 RDW 20.0 H Plt Count 157 MPV 11.4 H Immature Gran % 0.3 Neutrophils % 67.7 Lymphocytes % 17.5 Monocytes % 11.7 Eosinophils % 2.1 Basophils % 0.7 Nucleated RBC % 0.0 Absolute Neutrophils 4.09 Absolute Lymphocytes 1.06 L Absolute Monocytes 0.71 Absolute Eosinophils 0.13 Absolute Basophils 0.04 Sodium 139 Potassium 3.5 Chloride 102 Carbon Dioxide 30.8 Anion Gap 6.2 BUN 28 H Creatinine 1.0 Est GFR (CKD-EPI 2020) 74.21 Glucose 130 H Calcium 8.9 Magnesium 1.7 L Total Bilirubin Cancelled 2.2 H Conjugated Bilirubin Cancelled 0.4 H AST Cancelled 21 ALT Cancelled 24 Alkaline Phosphatase Cancelled 72 Total Protein Cancelled 7.2 Albumin Cancelled 3.2 L TSH 3.43 Add-On Test Request DONE Objective Narrative Objective Narrative: Echo: 1. All chambers are moderately dilated. 2. Mild to moderate concentric LVH with moderate LV systolic dysfunction, EF 35-40%. Normal RV function. 3. Anatomically normal valves. Moderate MR; moderate to severe TR with moderate pulmonary hypertension. 4. No significant pericardial effusion. Time Spent with Patient Time Spent with Patient: 35-49 minutes Time was spent: preparing to see the patient(eg.review tests), obtaining and/or reviewing separately otained hiistory, ordering medications,tests, procedures, referring, communicating with other health lead caregiver, indepentently interpreting results, counseling the patient and care coordination
[2023-09-30] MEDS: Enoxaparin 100 MG/ML SYR 90 MG SC (18:24)
[2023-09-30] MEDS: Latanoprost 0.005% 2.5 ML BTL OU (21:23)
[2023-10-01 03:22] VITALS: BP 155/95; PULSE 75; RESP 18; TEMP 36.9; O2SAT 90
[2023-10-01] MEDS: Enoxaparin 100 MG/ML SYR 90 MG SC ×2 (05:14→17:27)
[2023-10-01 07:16] LABS: Anion Gap 7.7 mmol/L (3-11); BUN 29 mg/dL (7-18); CO2 29.3 mmol/L (21.0-32.0); Calcium 8.9 mg/dL (8.5-10.1); Calculated LDL 86 mg/dL (<100); Chloride 102 mmol/L (98-107); Cholesterol 148 mg/dL (<200); Estimated GFR 74.21 (mL/min/1.73m2); Glucose 146 mg/dL (74-106); HDL Cholesterol 41 mg/dL (40-60); Magnesium 2.2 mg/dL (1.8-2.4); Sodium 139 mmol/L (136-145); Triglyceride 107 mg/dL (<150)
[2023-10-01 07:23] VITALS: BP 161/81; PULSE 89; RESP 18; TEMP 35.8; O2SAT 93
[2023-10-01 07:30] VITALS: BP 158/80
[2023-10-01 07:31] VITALS: O2SAT 93
[2023-10-01] MEDS: Omeprazole 20 MG CAPCR PO (08:06)
[2023-10-01] MEDS: Normal Saline Flush 10 ML SYR IVP ×3 (08:06→20:00)
[2023-10-01] MEDS: Lisinopril 10 MG TAB PO (08:06)
[2023-10-01] MEDS: Magnesium Chloride 64 MG TABCR PO ×2 (08:06→20:00)
[2023-10-01] MEDS: Meloxicam 15 MG TAB PO (08:07)
[2023-10-01] MEDS: Loratidine 10 MG TAB PO (08:07)
[2023-10-01] MEDS: Metoprolol 25 MG TAB PO ×2 (08:07→20:00)
[2023-10-01] MEDS: Potassium Chloride 20 MEQ TABCR 40 MEQ PO (08:07)
[2023-10-01] MEDS: Multivitamin TAB 1 TAB PO (08:07)
[2023-10-01 11:00] VITALS: BP 131/85; PULSE 60; RESP 18; TEMP 36.4; O2SAT 95
[2023-10-01] MEDS: Insulin Aspart 300 UNITS/3 ML PEN SC ×3 (11:55→20:58)
--- NOTE | 2023-10-01 15:47 | W.PM.DS.N ---
Date of service: 10/01/23 Time of Service: 15:47 DS: Diagnosis Discharge Diagnosis (1) Acute congestive heart failure: Status: Acute (2) Acute hypoxemic respiratory failure: Status: Resolved (3) New onset a-fib: Status: Acute (4) Chest discomfort: Status: Acute (5) Pleural effusion: Status: Acute (6) Pulmonary edema: Status: Acute (7) Bilirubinemia: Status: Acute (8) Hypertension: Status: Chronic (9) GERD (gastroesophageal reflux disease): Status: Chronic (10) Diabetes mellitus: Status: Chronic (11) Hypokalemia: Status: Resolved (12) Hypomagnesemia: Status: Acute Discharge Plan Disposition Patient Disposition: Transfer-Acute Inpatient Care Specific Acute Inpt Facility: [facility] Condition: Stable Discharge Details Reason For Visit: Acute Exacerbation of HFrEF, Acute Hypoxic Respito Admit Date/Time: 09/28/23 07:03 Admit Provider: Elvis Oneal Attending Provider: Elvis Oneal Primary Care Provider: Yumi Garrett [facility] Hospital Course: Mr Watkins is an 83 year old male with PMHx of NIDDM2, nonsustained paroxysmal SVT, GERD, obesity with BMI of 31.5 kg/m2, who was a patient on [facility] hospitalist service from 09/28/23 until 10/01/23, initially admitted to the ICU, having presented with difficulty breathing and chest discomfort, being found to be hypoxic to the 72% on RA. PE was ruled out by CTA of the chest. There was evidence of acute CHF (pulmonary edema, bilateral pleural effusions). The patient was placed on BIPAP and diuresed with intravenous furosemide with significant improvement of his symptoms and resolution of oxygen requirement by hospital day 2, at which point he was transferred out of the ICU. He was also found to be in new onset rate controlled atrial fibrillation. He was maintained on his home metoprolol. He ruled out for ACS. An echocardiogram was performed and showed that all chambers were moderately dilated, that he had mild to moderate concentric LVH with LVEF of 35-40%, normal RV function, anatomically normal valves, moderate MR, moderate to severe TR with moderate pulmonary hypertension (RVSP of 51.4 mmHg). . He was evaluated by cardiology. Dr Henderson felt that since the patient presented with new systolic dysfunction, had a family h/o CAD (mother of an [place] In her 50s), had new diagnosis of Afib, that he would benefit from having a GIRISH/cardioversion and a cardiac catheterization prior to going home. These services are not available at our facility, and a transfer to [facility] was requested. The patient was accepted in transfer under the care of Dr Gardner, pending bed availability. The patient was started on anticoagulation with lovenox, pending procedures at [facility]. A bed became available today. The patient is in agreement with transfer and is stable for transfer. We appreciate the assistance of the [facility] cardiology team. Care for patient as well as completion of his transfer summary on the day of discharge took 45 minutes. Please, look at MAR for the list of inpatient medications. The list of medications below reflects outpatient prescriptions. Home Meds and New Rx's Prescriptions: No Action multivitamin Capsule 1 cap PO DAILY ascorbate calcium (vitamin C) 500 mg tablet 500 mg PO DAILY glimepiride 4 mg Tablet 4 mg PO DAILY latanoprost 0.005 % Drops 1 drp OPHTHALMIC (EYE) DAILY meloxicam 15 mg Tablet 15 mg PO DAILY triamcinolone acetonide 0.1 % Cream 1 applic TOPICAL DAILY methocarbamol 750 mg Tablet 750 mg PO TID PRN metformin 1,000 mg Tablet 1,000 mg PO BID lisinopril 10 mg Tablet 10 mg PO DAILY mometasone [Nasonex] 50 mcg/actuation [place],Non-Aerosol 1 spray INTRANASAL BID loratadine 10 mg Tablet 10 mg PO DAILY Lactobacillus acidophilus Capsule 100 mg PO DAILY Qty: 30 0RF Rx Instructions: give 30 min before meal/food metoprolol tartrate 25 mg tablet 25 mg PO BID Patient Comments: Patient takes 25 mg PO BID omeprazole 20 mg capsule,delayed release(DR/EC) 20 mg PO DAILY Discharge Instructions Additional Instructions: Return to the hospital with any fever, bleeding, CP, SOB. Follow up with your PCP in 1-2 weeks Referrals: CARDIOLOGY,[facility] [OTHER] - Yumi Garrett [Primary Care Provider] - Activity:: Activity as Tolerated Equipment/Supplies:: No Equipment Needed Diet:: Consistent carb heart healthy Discharge Orders Discharge Orders: Discharge Order (Routine); Ordered 10/01/23 Ordered By: Denise Godinez DS: Summary Time Spent with Patient providing and/or coordinating discharge services: Greater than 30 minutes Status at Discharge Functional status at discharge: independent ambulation Overall status at discharge: patient is back to baseline Mental Status: mental status grossly normal Speech and Movement: speech and movement normal Mood: congruent mood Affect: normal affect Quality:SDOH Health Related Social Needs: Health related social needs details none Health related social needs details: none Exam Narrative Exam Narrative: General: Pleasant elderly male is seen with Dr Henderson,, A&Ox3, on RA, no dyspnea/tachypnea/cyanosis, seen ambulating in his room HEENT: EOMI, MMM Heart: irregularly irregular rhythm, no m/r/g Lungs: CTAB Abdomen: soft, nontender, nondistended Extremities: no edema BLEs Psych Mental Status: mental status grossly normal Speech and Movement: speech and movement normal Mood: congruent mood Affect: normal affect DS: Data Vitals/I&O Vitals and I&O: Vital Signs Temperature 36.4 C 10/01/23 11:00 Temperature Source Tympanic 10/01/23 11:00 Pulse 60 10/01/23 11:00 Pulse Rhythm Regular 10/01/23 07:26 Pulse 81 09/29/23 15:00 Respiratory Rate 18 10/01/23 11:00 Respiratory Effort Normal 10/01/23 07:26 Respiratory Depth Normal 10/01/23 07:26 Respiratory Pattern Normal 10/01/23 07:26 Blood Pressure 131/85 10/01/23 11:00 Blood Pressure Mean 81 09/29/23 13:32 Blood Pressure Position Sitting 09/29/23 07:31 Pulse Oximetry 95 10/01/23 11:00 Oxygen Delivery Method Room Air 10/01/23 11:00 Oxygen Flow Rate 0 10/01/23 11:00 Fraction of Inspired Oxygen (FIO2) 21 09/28/23 15:34 Pain Level 0 10/01/23 11:34 Comment Pt. denies pain at this time. 10/01/23 11:34 Comment RA 09/29/23 06:02 Intake & Output 09/30/23 10/01/23 10/01/23 23:59 11:59 23:59 Intake Total 490 / 750 930 / 1410 480 / 1410 Output Total 400 / 1575 1400 / 1400 Balance 90 / -825 -470 / 10 480 / 10 Intake: IV Oral 480 / 720 910 / 1390 480 / 1390 Output: Urine 400 / 1575 1400 / 1400 Other: Urine Color Yellow Yellow Urine Appearance Clear Clear Urine Odor Normal Comment Void x1 in the urinal. Voiding Methods Urinal Data Completed and Pending Pending studies at discharge: CTA chest: 1. There are symmetrical moderate size bilateral pleural effusions..No confluent infiltrates. Mild increased markings in the lower lobes is probably related to under inflation. 2. Cardiomegaly. No pericardial effusion. CXR portable 09/28/23: Mild cardiomegaly. Pulmonary venous hypertension pattern. Recommend nonportable PA and lateral views when clinically possible. Echo 09/30/23: 1. All chambers are moderately dilated. 2. Mild to moderate concentric LVH with moderate LV systolic dysfunction, EF 35-40%. Normal RV function. 3. Anatomically normal valves. Moderate MR; moderate to severe TR with moderate pulmonary hypertension. 4. No significant pericardial effusion. Labs on day of discharge: Labs from last 24 hours 10/01/23 05:44 Sodium 139 Potassium 4.0 Chloride 102 Carbon Dioxide 29.3 Anion Gap 7.7 BUN 29 H Creatinine 1.0 Est GFR (CKD-EPI 2020) 74.21 Glucose 146 H Calcium 8.9 Magnesium 2.2 Triglycerides 107 Total Cholesterol 148 LDL Cholesterol, Calc 86 HDL Cholesterol 41 PFSH All Active Problems (Updated 10/01/23 @ 16:27 by Denise Godinez MD) Hypomagnesemia (Acute) Chest discomfort (Acute) Discharge planning issues (Acute) DVT prophylaxis (Acute) Bilirubinemia (Acute) Pleural effusion (Acute) Pulmonary edema (Acute) New onset a-fib (Acute) Hypertension (Chronic) Acute congestive heart failure (Acute) Chronic back pain (Acute) Nonsustained paroxysmal supraventricular tachycardia (Acute) Pancreatitis (Acute) Bile leak, postoperative (Acute) S/P laparoscopic cholecystectomy (Acute) Cholelithiasis with acute on chronic cholecystitis (Acute) Acute gangrenous cholecystitis (Acute) Gallstones without obstruction of gallbladder (Acute) Hemochromatosis (Chronic) GERD (gastroesophageal reflux disease) (Chronic) Diabetes mellitus (Chronic) Glaucoma (Chronic) Medical History (Updated 10/01/23 @ 16:27 by Denise Godinez MD) Positive cardiac stress test Surgical History (Updated 07/25/19 @ 17:18 by Jewels Pizano DO) Previous back surgery Social History Smoking/Tobacco Use Status: Never Smoking risk assessment performed?: Yes Drug use: Never Housing: house Do you feel safe at home: Yes Do you feel safe in your relationship?: Yes Time Spent with Patient Time Spent with Patient: 45-69 minutes Time was spent: preparing to see the patient(eg.review tests), obtaining and/or reviewing separately otained hiistory, ordering medications,tests, procedures, referring, communicating with other health care partner, indepentently interpreting results, counseling the patient and care coordination
--- NOTE | 2023-10-01 15:48 | PDOC.CMPRO ---
Date of service: 10/01/23 Time of Service: 15:48 Care Management Progress Note Progress Note Text Progress Note Text: Jemal is transferring to [facility] cardiology via [facility] transport coordinated by nursing supervisor wet pour. Patient needs to have an GIRISH/cardioversion as well as a cardiac cauterization. CM met with pt and to review concerns and provide updates re: transfer process. SDOH(Care Management) Screening Will the Patient Participate in the Screening?: Yes Do you worry about having a steady place to live?: no Problems where you live: no known problems In the past 12 months, have you had to go without electric, gas, oil or water in your home?: no Have you or anyone in your house had to go without enough food to eat?: no Has lack of transportation kept you from medical appointments or from doing things needed for daily living?: no Has anyone in your support network made you feel unsafe for any reason?: no Health Related Social Needs Health related social needs details: none
[2023-10-01 20:00] VITALS: BP 136/76; PULSE 62; RESP 18; TEMP 36.8; O2SAT 95
== END 2023-10-01 21:06 | disposition short-term general hospital (02) | DRG 291 ==
LOC: ER 07:10 → ICU 07:45 → MS 09-29 17:48
PROVIDERS: Internal Medicine; Admitting Provider Family Medicine; Emergency Provider Student in an Organized Health Care Education/Training Program; PCP Family Medicine; Visit Provider Family Medicine
DX: I11.0 Hypertensive heart disease with heart failure (principal); I50.21 Acute systolic (congestive) heart failure; J96.01 Acute respiratory failure with hypoxia; I47.19 Other supraventricular tachycardia; I48.91 Unspecified atrial fibrillation; K21.9 Gastro-esophageal reflux disease without esophagitis; E11.9 Type 2 diabetes mellitus without complications; Z79.84 Long term (current) use of oral hypoglycemic drugs; E80.6 Other disorders of bilirubin metabolism; G89.29 Other chronic pain; M54.9 Dorsalgia, unspecified; E83.119 Hemochromatosis, unspecified; H40.9 Unspecified glaucoma; E87.6 Hypokalemia; I42.9 Cardiomyopathy, unspecified; U09.9 Post COVID-19 condition, unspecified; R07.89 Other chest pain; E83.42 Hypomagnesemia
CPT/HCPCS: 00123; 36415; 71275; 80048; 80053; 80061; 80076; 87637; 93005; 94618; 94640; 96374; 96376; 99223; 99291; J1650; 71045; 83735; 83880; 84443; 84484; 85025; 93010; 93306; 94660; 99233; 99239; J1815; J1940; J3475; J3480; J3490; J7620

== ENCOUNTER → 2023-09-30 14:59 | Outpatient (BNVA) | payer MEDICARE, SELFPAY | PROVIDERS: PCP Family Medicine; Referring Provider Family Medicine; Visit Provider Internal Medicine Interventional Cardiology | CPT/HCPCS: 99214 ==

== ENCOUNTER 2023-11-22 13:10 | Outpatient (RCR) | payer MEDICARE, SELFPAY | END 2023-11-24 23:59 | disposition home or self-care (01) | LOC: CR 13:10 | PROVIDERS: PCP Family Medicine; Visit Provider Internal Medicine Cardiovascular Disease | DX: I50.21 Acute systolic (congestive) heart failure (principal); Z51.89 Encounter for other specified aftercare | CPT/HCPCS: S9472 ==

== ENCOUNTER 2023-12-10 15:59 | Outpatient (REF) | payer MEDICARE, SELFPAY ==
[2023-12-10 16:39] LABS: ALT 36 U/L (16-63); AST 24 U/L (15-37); Albumin 3.5 g/dL (3.4-5.0); Alkaline Phosphatase 195 U/L (46-116); Anion Gap 7.1 mmol/L (3-11); BUN 25 mg/dL (7-18); Bilirubin, Total 1.1 mg/dL (0.2-1.0); CO2 31.9 mmol/L (21.0-32.0); CREATININE 1.2 mg/dL (0.70-1.30); Chloride 106 mmol/L (98-107); Estimated GFR 59.63 (mL/min/1.73m2); Glucose 99 mg/dL (74-106); Sodium 145 mmol/L (136-145); Total Protein 7.4 g/dL (6.4-8.2)
[2023-12-10 16:54] LABS: Hemoglobin A1C 7.5 % (<5.7)
[2023-12-10 17:35] LABS: Calculated LDL 35 mg/dL (<100); Cholesterol 94 mg/dL (<200); HDL Cholesterol 40 mg/dL (40-60); Triglyceride 99 mg/dL (<150)
== END 2023-12-10 16:00 | disposition home or self-care (01) ==
LOC: NCHCN 15:59
PROVIDERS: PCP Family Medicine; Visit Provider Family Medicine
DX: I10 Essential (primary) hypertension (principal); E11.9 Type 2 diabetes mellitus without complications
CPT/HCPCS: 80053; 80061; 83036

== ENCOUNTER 2023-12-17 08:23 | Outpatient (CLI) | payer MEDICARE, SELFPAY ==
--- NOTE | 2023-12-17 08:15 | RT.EKG_ITS ---
APPROVED REPORT Exam: Resting ECG Reason for Exam: CAD Patient Location: O HR:69 bpm ECG Measurements Heart Rate 69 AXIS MA [id number] P [id number] QRSd 166 QRS 127 QT 469 T 75 QTc 503 Conclusion Atrial fibrillation...V-rate 57- 84, irreg A-activity RBBB and LPFB...QRSd >120mS, axis(90,210)
== END 2023-12-17 08:24 | disposition home or self-care (01) ==
LOC: DI.CARD 08:24
PROVIDERS: PCP Family Medicine; Visit Provider Internal Medicine Cardiovascular Disease
DX: I25.10 Atherosclerotic heart disease of native coronary artery without angina pectoris (principal)
CPT/HCPCS: 93010

== ENCOUNTER → 2023-12-17 13:48 | Outpatient (BNVA) | payer MEDICARE, SELFPAY | PROVIDERS: PCP Family Medicine; Referring Provider Family Medicine; Visit Provider Internal Medicine Cardiovascular Disease | DX: I25.5 Ischemic cardiomyopathy (principal); I48.91 Unspecified atrial fibrillation; I45.10 Unspecified right bundle-branch block; I44.4 Left anterior fascicular block; I25.10 Atherosclerotic heart disease of native coronary artery without angina pectoris | CPT/HCPCS: 93005; 99214 ==

== ENCOUNTER 2023-12-23 13:37 | Outpatient (RCR) | payer MEDICARE, SELFPAY | END 2023-12-24 23:59 | disposition home or self-care (01) | LOC: CR 13:37 | PROVIDERS: PCP Family Medicine; Visit Provider Internal Medicine Cardiovascular Disease | DX: I50.21 Acute systolic (congestive) heart failure (principal); Z51.89 Encounter for other specified aftercare | CPT/HCPCS: S9472 ==

== ENCOUNTER 2024-01-24 13:19 | Outpatient (RCR) | payer MEDICARE, SELFPAY | END 2024-01-24 23:59 | disposition home or self-care (01) | LOC: CR 13:19 | PROVIDERS: PCP Family Medicine; Visit Provider Internal Medicine Cardiovascular Disease | DX: I11.0 Hypertensive heart disease with heart failure (principal); I25.5 Ischemic cardiomyopathy; Z51.89 Encounter for other specified aftercare | CPT/HCPCS: S9472 ==

== ENCOUNTER 2024-02-17 13:00 | Outpatient (RCR) | payer MEDICARE, SELFPAY | END 2024-02-23 23:59 | disposition home or self-care (01) | LOC: CR 13:00 | PROVIDERS: PCP Family Medicine; Visit Provider Internal Medicine Cardiovascular Disease | DX: I48.91 Unspecified atrial fibrillation (principal); I25.10 Atherosclerotic heart disease of native coronary artery without angina pectoris; Z98.890 Other specified postprocedural states | CPT/HCPCS: S9472 ==

== ENCOUNTER → 2024-03-03 01:34 | Outpatient (CLI) | payer MEDICARE, SELFPAY ==
--- NOTE | 2024-03-03 14:45 | DI.US_ITS ---
APPROVED REPORT EXAM: Comprehensive 2D, Doppler, and color-flow Echocardiogram Patient Location: Out-Patient Elevator Installer: Annelise Lundberg RDCS (AE) Indications: LV function ischemic cardiomyopathy, atherosclerotic heart disease Other Information Study Quality: Adequate Conclusion Moderate concentric left ventricular hypertrophy. Ejection fraction is 50 to 55%. No segmental wall motion abnormalities are appreciated Normal right ventricular size and function Right atrium is moderately enlarged. Left atrium is severely enlarged Aortic valve is sclerotic and trileaflet without stenosis or regurgitation Thickened mitral leaflets, mild to moderate mitral regurgitation Moderate tricuspid regurgitation. Estimated right ventricular systolic pressure is 39 mmHg Wall motion Left Ventricle The left ventricle is normal size. Left ventricular systolic function is mildly decreased. Moderate c oncentric left ventricular hypertrophy. There is mild global hypokinesis of the left ventricle. There is no ventricular septal defect visualized. LVEF is 50-55%. Right Ventricle Right ventricle is not well visualized. Right ventricular systolic function could not be assessed. Atria Left atrium is severely dilated. Right atrium is moderately dilated. The interatrial septum is intact with no evidence for an atrial septal defect. Aortic Valve The aortic valve is sclerotic Aortic valve is trileaflet. There is no aortic valvular stenosis. No ao rtic regurgitation is present. Mitral Valve Mildly thickened mitral leaflets No evidence of mitral valve stenosis. Mild to moderate mitral regur gitation.. Tricuspid Valve The tricuspid valve is normal in structure. There is no tricuspid valve stenosis. Moderate tricuspid regurgitation. The RVSP is 39.4 mmHg. Pulmonic Valve The pulmonary valve is normal in structure. There is no pulmonic valvular stenosis. Trace pulmonic re gurgitation. Great Vessels The aortic root is normal in size. The ascending aorta is normal in size. Aortic arch is not well vis ualized. IVC is normal in size and collapses >50% with inspiration. Pericardium There is no pericardial effusion. 2D Dimensions IVSD d PLAX 1.41 cm M: 0.6-1.2 Ao Root d 3.30 cm M: 3.1 - 3.7 LVPW d PLAX 1.44 cm M: 0.6 - 1.2 Ao Asc Diam d 3.19 cm M: 2.6 - 3.4 LVID d PLAX 4.85 cm M: 4.2 - 5.8 LVDs 3.55 cm M: 2.5 - 4.0 LV EF Teichholz 52.2 % FS 26.77 % LV EDV (Teich) 110.2 mL LV ESV (Teich) 52.7 mL M-Mode TAPSE 1.38 cm (M/F) >1.7 Auto EF LV EDV A4C 124.6 mL LV EDV A2C 116.7 mL LV EDV BP 122.2 mL LV ESV A4C 62.7 mL LV ESV A2C 57.8 mL LV ESV BP 60.3 mL LVEF(%) A4C 49.6 % LVEF(%) A2C 50.5 % LVEF(%) BP 50.6 % LV SV A4C 61.8 ml LV SV A2C 58.9 ml LV SV BP 61.9 ml LV CO A4C 5.4 L/min LV CO A2C 4.2 L/min LV CO BP 4.8 L/min HR A4C 86.55 BPM HR A2C 71.40 BPM LV EDV Index (BP) LV Strain Long Pk Overal Avg (s) 11.38 LA Volume LA Length A4C 6.6 cm LA Length A2C 6.4 cm LA Area A4C s 29.44 cm2 LA Area A2C s 27.90 cm2 LA Vol A4C A-L 111.54 mL LA Vol A2C A-L 103.90 mL LA Vol Biplane A-L 109.7 mL LA Vol/BSA A4C A-L LA Vol/BSA A2C A-L LA Vol/BSA BP A-L 54.0 mL/m2 LA Vol A4C MOD 104.8 mL LA Vol A2C MOD 98.4 mL LA Vol BP MOD 103.3 mL RA Volume RA Area A4C 26.0 cm2 RA ESV A4C (A-L) 89.2mL RA Vol/BSA A4C A-L RA Length A4C 6.5 cm RA ESV A4C (MOD) 85.3mL LV Diastology MV E' lateral 0.097 (>0.1 m/s) MV E Vmax 1.07 (0.4-1.3 m/s) MV E/E' LAT 11.02 (<14) Aortic Valve AoV Vmax 1.62 m/s LVOT Vmax 0.91 m/s AoV Peak Grad 10.4 mmHg LVOT Peak Grad 3.3 mmHg AoV Area (Vmax) 1.98 cm2 LVOT VTI 0.161 m AoV VTI 0.284 m LVOT Mean Grad 2.1 mmHg AoV Mean Neymar. 1.18 m/s LVOT SV 56.96 mL AoV Mean Grad 6.3 mmHg LVOT Diam s 2.10 cm AoV Area (VTI) 2.01 cm2 Velocity Ratio 0.56 Mitral Valve MV DT 213 (160-240 msec) MV Vmax TIPS 0.98 m/s MV Mean Grad 1.9 (<2mmHg) MV VTI 0.203 m Pulmonary Valve PV Vmax 1.12 (0.5-1.5 m/s) RVOT Vmax 0.65 m/s PV Peak Grad 5.1 mmHg RVOT Peak Gr. 1.7 mmHg PV Mean Neymar 0.81 m/s RVOT VTI 0.112 m PV Mean Grad 2.9 mmHg RVOT Mean Gr. 0.9 mmHg Tricuspid Valve RA Pressure 3.00 mmHg TR Vmax 3.01 m/s TV S' 0.13 m/s TR Peak Grad 36.3 mmHg RVSP (TR) 39.4 mmHg
== END ==
PROVIDERS: PCP Family Medicine; Visit Provider Internal Medicine Cardiovascular Disease
DX: I25.10 Atherosclerotic heart disease of native coronary artery without angina pectoris (principal); I25.5 Ischemic cardiomyopathy
CPT/HCPCS: 93306

== ENCOUNTER → 2024-03-19 12:56 | Outpatient (BNVA) | payer MEDICARE, SELFPAY | PROVIDERS: PCP Family Medicine; Referring Provider Family Medicine; Visit Provider Internal Medicine Cardiovascular Disease | DX: I25.10 Atherosclerotic heart disease of native coronary artery without angina pectoris (principal); I48.21 Permanent atrial fibrillation; I34.0 Nonrheumatic mitral (valve) insufficiency | CPT/HCPCS: 99213 ==

== ENCOUNTER → 2024-07-30 13:30 | Outpatient (BNVA) | payer MEDICARE, SELFPAY | PROVIDERS: PCP Family Medicine; Referring Provider Family Medicine; Visit Provider Podiatrist | DX: E11.8 Type 2 diabetes mellitus with unspecified complications (principal); I73.9 Peripheral vascular disease, unspecified; B35.1 Tinea unguium; L60.3 Nail dystrophy; M79.671 Pain in right foot; M79.672 Pain in left foot; R25.2 Cramp and spasm; R60.0 Localized edema | CPT/HCPCS: 11719; 11720; 99214 ==

== ENCOUNTER → 2024-08-13 12:50 | Outpatient (BNVA) | payer MEDICARE, SELFPAY | PROVIDERS: PCP Family Medicine; Referring Provider Family Medicine; Visit Provider Internal Medicine Cardiovascular Disease | DX: I25.5 Ischemic cardiomyopathy (principal); I25.10 Atherosclerotic heart disease of native coronary artery without angina pectoris; I48.21 Permanent atrial fibrillation | CPT/HCPCS: 99213 ==

== ENCOUNTER → 2025-02-18 12:45 | Outpatient (BNVA) | payer MEDICARE, SELFPAY | PROVIDERS: PCP Family Medicine; Referring Provider Family Medicine; Visit Provider Internal Medicine Cardiovascular Disease | DX: I48.21 Permanent atrial fibrillation (principal); I25.10 Atherosclerotic heart disease of native coronary artery without angina pectoris; I25.5 Ischemic cardiomyopathy | CPT/HCPCS: 99214 ==

== ENCOUNTER → 2025-08-10 13:20 | Outpatient (BNVA) | payer MEDICARE, SELFPAY | PROVIDERS: PCP Family Medicine; Referring Provider Family Medicine; Visit Provider Internal Medicine Cardiovascular Disease | DX: I48.21 Permanent atrial fibrillation (principal); I25.10 Atherosclerotic heart disease of native coronary artery without angina pectoris; I25.5 Ischemic cardiomyopathy; Z79.01 Long term (current) use of anticoagulants | CPT/HCPCS: 99214 ==